=== PATIENT | male | born 1985 | race Caucasian/White ===

== ENCOUNTER 2024-02-02 09:21 | Emergency (ER) | payer OTHER, MEDICAID, SELFPAY ==
--- NOTE | 2024-02-02 09:34 | XR_ITS ---
Examination: AP right shoulder 2 views Technique: AP internal rotation, Y view right shoulder 2 views Exam date and time: February 02, 2024 0942 hrs. Indications: Shoulder pain and deformity today Findings: Anterior subcoracoid shoulder dislocation No fracture Impression: Anterior subcoracoid shoulder dislocation
[2024-02-02 09:36] VITALS: BP 136/106; PULSE 104; RESP 16; TEMP 36.5; O2SAT 97
--- NOTE | 2024-02-02 09:36 | EDNOTE_ITS ---
Upper Extremity Injury RME/HPI General Chief Complaint: Extremity Injury, Upper Stated Complaint: DISLOCATED SHOULDER Time Seen by Provider: 02/02/24 09:26 Arrival date/time: 02/02/24 09:21 Limitations: no limitations RME / HPI RME / HPI narrative: Patient with history of diabetes and right shoulder dislocation once in the past rolled in the bed and his shoulder dislocated. On exam he has anterior fullness of the right shoulder with normal neurovascular status of the rest of the right upper extremity Related Data Home Medications ?Medication ?Instructions ?Recorded ?Confirmed insulin degludec 100 unit/mL (3 90 unit subcut QAM 10/16/18 06/21/21 mL) subcutaneous pen (Tresiba FlexTouch U-100 insulin) sitagliptin phosphate 50 1 tab PO BIDWM 09/28/20 06/21/21 mg-metformin 1,000 mg tablet (Janumet) aspirin 81 mg chewable tablet 81 mg PO QDAY 06/21/21 06/21/21 flash glucose scanning reader 06/21/21 06/21/21 ([employer] Raghavendra 14 Day [place]) insulin lispro 100 unit/mL 20 unit subcut TID 06/21/21 06/21/21 subcutaneous pen (Admelog SoloStar U-100 Insulin lispro) Previous Rx's ?Medication ?Instructions ?Recorded ondansetron HCl 4 mg tablet 4 mg PO TID PRN nausea and 05/10/21 vomiting #20 tabs ibuprofen 800 mg tablet (IBU) 800 mg PO Q8H #20 tabs 09/27/23 Allergies Allergy/AdvReac Type Severity Reaction Status Date / Time No Known Allergies Allergy Verified 09/27/23 10:41 Review of Systems Review of Systems Systems Reviewed: All systems reviewed, normal except as documented ED Exam General Limitations: Present no limitations General appearance: Present alert Head Head exam: Present atraumatic Neck Neck exam: Present normal inspection Respiratory Respiratory exam: Present normal lung sounds bilaterally Cardiovascular Cardiovascular exam: Present regular rate and normal rhythm Abdominal Exam Abdominal exam: Present soft and normal bowel sounds Extremities Exam Extremities exam: Present other (See HPI) Back Exam Back exam: Present normal inspection Course Course Course Narrative: 1015 Time out was given per institution policy. The right shoulder was initialed by myself. While completely monitored, using 20 mg of etomidate the patient was induced and using traction/countertraction technique the right shoulder was reduced easily by myself. The patient was placed in an arm sling with good neurovascular status. Postreduction x-ray was ordered. Quality Measures none Orders Category Date Time Status XR shoulder RT min 2V Stat Exams 02/02/24 09:34 Completed XR shoulder RT min 2V Stat Exams 02/02/24 10:14 Taken Etomidate Inj [Amidate Inj] Med 02/02/24 09:34 Discontinued 20 mg IVP X1 ONE Vital Signs Vital signs: Vital Signs Temperature 97.7 F 02/02/24 09:36 Pulse Rate 104 H 02/02/24 09:36 Respiratory Rate 16 02/02/24 09:36 Blood Pressure 136/106 H 02/02/24 09:36 Pulse Oximetry (%) 97 02/02/24 09:36 Oxygen Delivery Method Room Air 02/02/24 09:36 Extremity Injury MDM Narrative MDM Narrative:: 1122 Patient is fully awake and alert and has recovered from the effects of etomidate and is ready to be discharged to law enforcement Patient data External records reviewed:: EMS form Clinical information provided by:: patient, EMS and law enforcement Social determinants that could affect healthcare access:: none Patient has the following chronic illnesses:: History of dislocated right shoulder How is presenting disease/condition affected by chronic disease/condition?: caused by Evaluation data The following diagnostics were reviewed and interpreted by me:: radiology exam(s) Lab and/or radiology exams considered but not ordered:: Comfort successful reduction of the right shoulder Interpretation Summary: As above Medications / Prescriptions Medications or Prescriptions considered but not ordered:: Not applicable Medication administrations:: Medication Administration History Discontinued Medications Etomidate (Etomidate Inj 2 Mg/Ml Vial 10 Ml) 20 mg IVP X1 ONE Stop: 02/02/24 09:35 Last Admin: 02/02/24 10:07 Dose: 20 mg Documented By: for induction Consultations Consultation(s) initiated? (list below): No Diagnosis Upper Extremity Injury Differential Diagnosis: dislocation of shoulder Most likely diagnosis given after review of the tests above:: Anterior dislocation of the right shoulder Admission Indicated Admission indicated?: not indicated Admission Request Was there a request for admission?: No Disposition Plan Disposition Plan: Discharge Discharge Attestation Discharge Attestation: The patient and all family members were given an opportunity to ask questions and understood the discharge instructions. Discharge instructions specifically effects, indications for sooner follow up or return to the emergency department, and the expected course of current diagnosis. Patient condition: Stable Discharge Plan Plan Patient Disposition: Fpc/Court/Law Patient condition on transfer: Stable Prescriptions/Referrals Prescriptions/Med Rec: No Action Tresiba FlexTouch U-100 100 unit/mL (3 mL) Insulin Pen 90 unit subcut QAM Rx Instructions: AFTER BREAKFAST Janumet 50-1,000 mg tablet 1 tab PO BIDWM Patient Comments: TAKE 1 TABLET BY MOUTH TWICE A DAY WITH MEALS ondansetron HCl 4 mg tablet 4 mg PO TID PRN (Reason: nausea and vomiting) Qty: 20 0RF aspirin 81 mg tablet,chewable 81 mg PO QDAY Patient Comments: CHEW 1 TABLET BY MOUTH EVERY DAY insulin lispro [Admelog SoloStar U-100 Insulin] 100 unit/mL insulin pen 20 unit SUBCUT TID Patient Comments: INJECT 20 UNITS SUBCUTANEOUSLY 3 TIMES A DAY 15MIN BEFORE EACH [place] [place] Flores Mabry [address] [facility] [place] [facility] [place] Patient Comments: CHECK BLOOD SUGAR 4 TIMES A DAY Rx Instructions: CHECK BLOOD SUGAR FOUR TIMES A DAY ibuprofen [IBU] 800 mg tablet 800 mg PO Q8H Qty: 20 0RF Referrals: No Primary/Family,Physician [Primary Care Provider] - In 1 week Problem List Clinical Impression: Dislocation of shoulder region Patient/Caregiver Discharge Instructions Discharge Activity: activity as tolerated Education Materials: ED Joint Dislocation Print Language: Lao
[2024-02-02 09:40] VITALS: BMI 22.9
[2024-02-02] MEDS: ETOMIDATE INJ 2 MG/ML VIAL 10 ML 20 MG IVP (10:07)
[2024-02-02 10:10] VITALS: BP 124/101; PULSE 108; RESP 16; O2SAT 100
--- NOTE | 2024-02-02 10:14 | XR_ITS ---
Examination: Shoulder,right, 3 views Technique: Shoulder AP internal rotation, AP external rotation, Y view shoulder, 3 views Exam date and time :February 02, 2024 1019 hrs. Indications: Post reduction shoulder dislocation Findings: Successful reduction shoulder dislocation Large vessel sex deformity humeral head No fracture noted Impression: Successful reduction shoulder dislocation
--- NOTE | 2024-02-02 10:27 | PC.NURSE ---
PATIENT AWAKE AND TALKING AT THIS TIME, DENIES COMPLAINT OF PAIN. [facility] REMAINS AT BEDSIDE
[2024-02-02 10:30] VITALS: BP 129/98; PULSE 110; RESP 16; O2SAT 100
[2024-02-02 10:43] VITALS: PULSE 101; RESP 222; O2SAT 99
[2024-02-02 11:57] VITALS: BP 126/86; PULSE 103; RESP 16; O2SAT 98
== END 2024-02-02 12:10 ==
PROVIDERS: Emergency Provider Emergency Medicine
DX: S43.004A Unspecified dislocation of right shoulder joint, initial encounter (principal); X58.XXXA Exposure to other specified factors, initial encounter
CPT/HCPCS: 23650; 73030; 99285; J3490

== ENCOUNTER 2024-10-22 15:17 | Emergency (ER) | payer MEDICAID, SELFPAY ==
[2024-10-22 15:28] VITALS: BP 120/82; PULSE 115; RESP 18; TEMP 36.9; O2SAT 97; BMI 22.2
--- NOTE | 2024-10-22 15:29 | XR_ITS ---
Examination: PA lateral chest 2 views TECHNIQUE: Upright PA lateral chest 2 views Date and time: October 22, 2024 1440 hours INDICATIONS: Chest pain weakness this week. FINDINGS: Normal heart size. Lungs are clear. The osseous structures are intact. IMPRESSION: No active disease.
--- NOTE | 2024-10-22 15:29 | EKG_ITS ---
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
--- NOTE | 2024-10-22 15:30 | PD.EDRME ---
Rapid Medical Screening Exam RME Arrival date/time: 10/22/24 15:17 39-year-old male presents to the emergency department as send has been out of his insulin for approximately 1 week feels weak and fatigued Chief Complaint: Weakness
[2024-10-22 15:51] LABS: Base Excess, Venous -3 (-3-3); O2 Saturation, Venous 70 % (96-97); PCO2, Venous 38 mmHg (36-56); PO2, Venous 33 mmHg (15-58); pH, Venous 7.37 (7.33-7.66)
[2024-10-22 15:54] LABS: Basophils # (Auto) 0.1 Thou/mm3 (0.0-0.2); Basophils % (Auto) 1 % (0-2.5); Eosinophils # (Auto) 0.2 Thou/mm3 (0.0-0.5); Eosinophils % (Auto) 2 % (0-10); Hematocrit 46.5 % (41.0-53.0); Hemoglobin 16.4 g/dL (13.5-16.0); Immature Granulocytes Auto 0.02 Thou/mm3 (0.00-0.00); Lymphocytes # (Auto) 2.9 Thou/mm3 (1.0-4.8); Lymphocytes % (Auto) 30 % (10-50); Mean Corpuscular HGB Conc 35.3 g/dl (31.0-37.0); Mean Corpuscular Hemoglobin 28.2 pg (25.0-35.0); Mean Corpuscular Volume 80 fL (80-100); Monocytes # (Auto) 0.8 Thou/mm3 (0.0-0.8); Monocytes % (Auto) 8 % (0-12); Neutrophils # (Auto) 5.8 Thou/mm3 (1.8-7.7); Neutrophils % (Auto) 59 % (37-80); Nucleated Red Blood Cell # 0.00 Thou/mm3 (0.00-0.00); Nucleated Red Blood Cell % 0 /100 WBC (0); Platelet Count 321 Thou/mm3 (140-440); RDW Standard Deviation 35.5 fL (35.1-43.9); Red Blood Count 5.82 Miln/mm3 (4.50-5.90); White Blood Count 9.7 Thou/mm3 (3.8-10.6)
[2024-10-22 16:02] LABS: Beta Hydroxybutyrate 4.3 mmol/L (<0.6)
[2024-10-22 16:09] LABS: INR 0.9 (0.9-1.3); Partial Thromboplastin Time 24.7 Seconds (22.0-36.0); Prothrombin Time 10.3 Seconds (9.0-12.2)
[2024-10-22 16:11] LABS: B-Type Natriuretic Peptide < 20 pg/mL (0-100)
[2024-10-22 16:13] LABS: Glucose Estimated Average 255 mg/dL (80-131); Hemoglobin A1C 10.5 % Hgb (4.8-6.0)
[2024-10-22 16:14] LABS: Alanine Aminotransferase 21 U/L (10-49); Albumin, Serum 5.0 gm/dL (3.5-5.0); Albumin/Globulin Ratio 1.9 (1.2-2.2); Alkaline Phosphatase 106 U/L (46-116); Anion Gap 16 (7-16); Aspartate Amino Transferase 12 U/L (0-34); BUN/Creatinine Ratio 8 Ratio (12-20); Bilirubin,Total 0.7 mg/dL (0.3-1.2); Blood Urea Nitrogen 11 mg/dL (9-23); Calcium 10.7 mg/dL (8.3-10.6); Calcium (Corrected) 10.7 mg/dL (8.5-10.1); Carbon Dioxide 22.3 mMol/L (20.0-31.0); Chloride 97 mMol/L (98-107); Creatinine (Component) 1.3 mg/dL (0.6-1.3); Estimated Creatinine Clearance 76.6 mL/min (>60); Globulin 2.6 gm/dL (2.3-3.5); Glucose 268 mg/dL (74-106); Magnesium 2.0 mg/dL (1.6-2.6); Osmolality,Calculated 278 (275-295); Potassium 4.3 mMol/L (3.4-5.1); Sodium 135 mMol/L (136-145); Total Protein 7.6 gm/dL (5.7-8.2); Troponin I < 0.002 ng/mL (0.0-0.045); eGFR > 60 See Note
--- NOTE | 2024-10-22 17:06 | PD.EDWEAK ---
ED Weakness RME/HPI General Chief complaint: Weakness Stated complaint: hasn't had insulin X 1 week, weak Time Seen by Provider: 10/22/24 16:15 Arrival date/time: 10/22/24 15:17 RME / HPI RME / HPI Narrative: 39-year-old male patient with significant history of diabetes mellitus, came in for evaluation regarding generalized body weakness and fatigue. Patient denies any vomiting denies any abdominal pain denies any cough denies any fever denies any other complaints. Denies any diarrhea also. Patient ran out over his insulin for 1 week due to pharmacy issues. Has been taking his Janumet. Related Data Home Medications ?Medication ?Instructions ?Recorded ?Confirmed insulin degludec 100 unit/mL (3 90 unit subcut QAM 10/16/18 06/21/21 mL) subcutaneous pen (Tresiba FlexTouch U-100 insulin) sitagliptin phosphate 50 1 tab PO BIDWM 09/28/20 06/21/21 mg-metformin 1,000 mg tablet (Janumet) aspirin 81 mg chewable tablet 81 mg PO QDAY 06/21/21 06/21/21 flash glucose scanning reader 06/21/21 06/21/21 ([employer] Raghavendra [address] [place]) insulin lispro 100 unit/mL 20 unit subcut TID 06/21/21 06/21/21 subcutaneous pen (Admelog SoloStar U-100 Insulin lispro) Previous Rx's ?Medication ?Instructions ?Recorded ondansetron HCl 4 mg tablet 4 mg PO TID PRN nausea and 05/10/21 vomiting #20 tabs ibuprofen 800 mg tablet (IBU) 800 mg PO Q8H #20 tabs 09/27/23 Allergies Allergy/AdvReac Type Severity Reaction Status Date / Time No Known Allergies Allergy Verified 10/22/24 15:20 Review of Systems Review of Systems Narrative Review of Systems: Review of system reviewed and within normal limits except mentioned in HPI ED Exam Narrative Physical exam: VITAL SIGNS: Reviewed. GENERAL APPEARANCE: Alert and interactive, follows commands, no acute distress, HEAD AND FACE: Non-traumatic. ENT: PERRL, pink conjunctivitis, eyelid no trauma, Mucous membrane dry NECK: Supple, nontender, no nuchal rigidity. CHEST: No tenderness, no crepitus, no paradoxical movement, no retractions. LUNGS: Clear, well ventilated, symmetric, no rales, no wheezing, no ronchi, no stridor, good breath sounds bilaterally. HEART: Regular rate, regular rhythm, no murmur, no gallops. ABDOMEN: Soft, positive bowel sounds, nondistended, no guarding, nontender, no rebound, no masses, RECTAL: Deferred. GENITAL: Deferred. NEUROLOGICAL: Gross motor function intact sensory function intact, Appropriate for age. MUSCULOSKELETAL: low back nontender, full range of motion. EXTREMITIES: Nontender, full range of motion. SKIN: Color pink, dry, no rash, no lacerations, no abrasions, no contusions. LYMPHATICS: Deferred. Course Quality Measures none Orders Category Date Time Status Bedside Blood Glucose NOW Care 10/22/24 15:23 Active EKG (ED ONLY) *Do not use* NOW Care 10/22/24 15:29 Completed EKG (ED Only) Stat Exams 10/22/24 15:29 Draft XR chest 2V Stat Exams 10/22/24 15:29 Completed A1C [Glycohemoglobin w (eAG)] Stat Lab 10/22/24 15:38 Completed ABG [Arterial Blood Gas] Stat Lab 10/22/24 18:00 Completed B-Type Natriuretic Peptide Stat Lab 10/22/24 15:38 Completed Beta Hydroxybutyrate Stat Lab 10/22/24 15:38 Completed CBC Stat Lab 10/22/24 15:38 Completed Comprehensive Metabolic Panel Stat Lab 10/22/24 15:38 Completed Drug Screen,Urine Stat Lab 10/22/24 23:59 Ordered Magnesium Stat Lab 10/22/24 15:38 Completed Partial Thromboplastin Time Stat Lab 10/22/24 15:38 Completed Prothrombin Time with INR Stat Lab 10/22/24 15:38 Completed Troponin I Stat Lab 10/22/24 15:38 Completed Urinalysis Stat Lab 10/22/24 23:59 Ordered VBG [Venous Blood Gas] Stat Lab 10/22/24 15:38 Completed Famotidine Inj [Pepcid Inj] Med 10/22/24 20:21 Discontinued 20 mg IVP X1 ONE Ondansetron Inj [Zofran Inj] Med 10/22/24 20:21 Discontinued 4 mg IVP X1 ONE Ringers Lactated 1000 ml [Lactated Ringers] 1,000 ml Med 10/22/24 17:05 Discontinued IV 999 mls/hr Ringers Lactated 1000 ml [Lactated Ringers] 1,000 ml Med 10/22/24 20:26 Active IV 999 mls/hr Sodium Chloride 0.9% 1000 ml [Ns] 1,000 ml Med 10/22/24 16:37 Discontinued IV 999 mls/hr Vital Signs Vital signs: Vital Signs Temperature 98.5 F 10/22/24 15:28 Pulse Rate 115 H 10/22/24 15:28 Respiratory Rate 18 10/22/24 15:28 Blood Pressure 120/82 10/22/24 15:28 Pulse Oximetry (%) 97 10/22/24 15:28 Oxygen Delivery Method Room Air 10/22/24 15:28 Weakness MDM Narrative MDM Narrative:: 39-year-old male patient with significant history of diabetes mellitus, came in for evaluation regarding generalized body weakness and fatigue. Patient denies any vomiting denies any abdominal pain denies any cough denies any fever denies any other complaints. Denies any diarrhea also. Patient ran out over his insulin for 1 week due to pharmacy issues. Has been taking his Janumet. EKG sinus rhythm, ventricular to 99 bpm, no ST segment elevation depression noted. Patient's CBC showed no leukocytosis. CMP came back with sodium 135, chloride 97, sugar 268 with no sign of diabetic ketoacidosis. Patient's hemoglobin A1c was noted to be 10.5 beta hydroxy butyrate 4.3. ABG no acidosis or alkalosis noted. pH is normal. Patient received total of 3 L IV fluids, Zofran, with significant improvement of symptoms. Patient is not vomiting in the ED. Patient chest x-ray came back unremarkable. Patient appears nontoxic and hemodynamically stable .Decision to discharge the patient. The patient/family was given an opportunity to ask questions and understood their discharge instructions. Discharge instructions specifically included follow up provider and time frame, current and/or new medications and possible side effects, indications for sooner follow up or return to the emergency department, and the expected course of current diagnosis. Patient reports feeling better as well and giving evidence of significant clinical improvement, I believe patient is now a candidate for discharge. Patient data External records reviewed:: None Clinical information provided by:: patient and family Social determinants that could affect healthcare access:: none Patient has the following chronic illnesses:: Hypertension poor medication compliance How is presenting disease/condition affected by chronic disease/condition?: exacerbated by Evaluation data The following diagnostics were reviewed and interpreted by me:: lab results, radiology exam(s) and EKG tracing(s) Lab and/or radiology exams considered but not ordered:: None Interpretation Summary: See results MDM Medications / Prescriptions Medications or Prescriptions considered but not ordered:: None Medication administrations:: Medication Administration History Lactated Ringer's (Lactated Ringers) 1,000 mls @ 999 mls/hr IV .Q1H1M ONE Stop: 10/22/24 21:26 Last Admin: 10/22/24 20:49 Dose: 999 mls/hr Documented By: BEATRICE Discontinued Medications Famotidine (Famotidine Inj 10 Mg/Ml Vial 2 Ml) 20 mg IVP X1 ONE Stop: 10/22/24 20:22 Last Admin: 10/22/24 20:49 Dose: 20 mg Documented By: BEATRICE Sodium Chloride (Ns) 1,000 mls @ 999 mls/hr IV .Q1H1M ONE Stop: 10/22/24 17:37 Last Infusion: 10/22/24 18:16 Dose: Infused Documented By: Admin: 10/22/24 17:21 Dose: 999 mls/hr Documented By: RADHA Lactated Ringer's (Lactated Ringers) 1,000 mls @ 999 mls/hr IV .Q1H1M ONE Stop: 10/22/24 18:05 Last Infusion: 10/22/24 20:21 Dose: Infused Documented By: Admin: 10/22/24 18:16 Dose: 999 mls/hr Documented By: CARLIN Ondansetron HCl (Ondansetron Inj 2 Mg/Ml Inj 2 Ml) 4 mg IVP X1 ONE; Protocol Stop: 10/22/24 20:22 Last Admin: 10/22/24 20:48 Dose: 4 mg Documented By: BEATRICE Pepcid, IV fluids, Zofran Consultations Consultation(s) initiated? (list below): No Diagnosis Weakness Differential Diagnosis: dehydration and other (Hyperglycemia, poor medication compliance) Most likely diagnosis given after review of the tests above:: Hyperglycemia, poor medication compliance Admission Indicated Admission indicated?: not indicated Admission Request Was there a request for admission?: No Disposition Plan Disposition Plan: Discharge Discharge Attestation Discharge Attestation: The patient and all family members were given an opportunity to ask questions and understood the discharge instructions. Discharge instructions specifically effects, indications for sooner follow up or return to the emergency department, and the expected course of current diagnosis. Patient condition: Stable Discharge Plan Plan Patient Disposition: HOME (Self Care) Discharge Disposition comment: Stable Prescriptions/Referrals Prescriptions/Med Rec: Continued Tresiba FlexTouch U-100 100 unit/mL (3 mL) Insulin Pen 90 unit subcut QAM Rx Instructions: AFTER BREAKFAST ondansetron HCl 4 mg tablet 4 mg PO TID PRN (Reason: nausea and vomiting) Qty: 20 0RF insulin lispro [Admelog SoloStar U-100 Insulin] 100 unit/mL insulin pen 20 unit SUBCUT TID Patient Comments: INJECT 20 UNITS SUBCUTANEOUSLY 3 TIMES A DAY 15MIN BEFORE EACH MEAL DIRECTED BY DR Bela Gonsalez Janumesadi 50-1,000 mg tablet 1 tab PO BIDWM Patient Comments: TAKE 1 TABLET BY MOUTH TWICE A DAY WITH MEALS aspirin 81 mg tablet,chewable 81 mg PO QDAY Patient Comments: CHEW 1 TABLET BY MOUTH EVERY DAY (DME) [employer] Raghavendra [address] [place] [facility] [place] Patient Comments: CHECK BLOOD SUGAR 4 TIMES A DAY Rx Instructions: CHECK BLOOD SUGAR FOUR TIMES A DAY ibuprofen [IBU] 800 mg tablet 800 mg PO Q8H Qty: 20 0RF Referrals: No Primary/Family,Physician [Primary Care Provider] - In 1 week Problem List Clinical Impression: Acute hyperglycemia, Acute dehydration Patient/Caregiver Discharge Instructions Discharge Activity: activity as tolerated Education Materials: High Blood Sugar (Hyperglycemia) Additional Instructions: Thank you for the opportunity for serving you today. You are stable for discharged . You are advised to: Follow-up with your PCP in 1 to 2 days Return to ED for worsening of symptoms Increase oral fluids Take medication as prescribed Print Language: Mohawk Stand Alone Forms: Jeanne Award Info., Patient Portal Info Letter ROSA/COLLEEN Supervising Physician ROSA/COLLEEN Supervising Physician: MD Robert
[2024-10-22] MEDS: SODIUM CHLORIDE 0.9% 1000 ML 1,000 ML 999 ML IV (17:21)
[2024-10-22 18:05] VITALS: BP 132/85; PULSE 97; RESP 18; TEMP 36.9; O2SAT 100
[2024-10-22] MEDS: RINGERS LACTATED 1000 ML 1,000 ML 999 ML IV ×2 (18:16→20:49)
[2024-10-22 18:37] LABS: PCO2 36 mmHg (32.0-48.0); PO2 126 mmHg (83-108); pH, Arterial 7.36 (7.35-7.45)
[2024-10-22 18:38] LABS: Base Excess -5 (-3-3); HCO3 20 mEq/L (20-26); Inspired Oxygen, FIO2 21 %; O2 Saturation 99 % (91-98); Puncture Site Right Radial
[2024-10-22 18:39] LABS: Allen Test Performed/OK
[2024-10-22] MEDS: ONDANSETRON INJ 2 MG/ML INJ 2 ML 4 MG IVP (20:48)
[2024-10-22] MEDS: FAMOTIDINE INJ 10 MG/ML VIAL 2 ML 20 MG IVP (20:49)
[2024-10-22 21:49] VITALS: BP 151/86; PULSE 116; RESP 19; TEMP 37; O2SAT 100
== END 2024-10-22 22:00 | disposition home or self-care (01) ==
PROVIDERS: Nurse Practitioner Family; Nurse Practitioner Primary Care; Emergency Provider Family Medicine
DX: E11.65 Type 2 diabetes mellitus with hyperglycemia (principal); E86.0 Dehydration
CPT/HCPCS: 36415; 36600; 71046; 80053; 80307; 81001; 82010; 82803; 83036; 83735; 83880; 84484; 85025; 85610; 85730; 93005; 96361; 96374; 96375; 99283; J2405; J3490; J7030; J7120

== ENCOUNTER 2024-10-23 10:10 | Inpatient (IN) | payer MEDICAID, SELFPAY ==
[2024-10-23] VITALS (12 sets, daily range): BP systolic 113–171; BP diastolic 66–94; PULSE 72–112; RESP 22–100; TEMP 36.3–36.9; O2SAT 98–100; BMI 25.5
--- NOTE | 2024-10-23 10:47 | EDNOTE_ITS ---
ED General RME/HPI General Chief complaint: General Adult/Misc Complain Stated complaint: DIABETIC COMPLICATIONS Time Seen by Provider: 10/23/24 10:20 Arrival date/time: 10/23/24 10:10 RME / HPI RME / HPI narrative: DR. DAVIDSON MAIN ED EVALUATION: 39-year-old male with a history of diabetes presents to the Emergency Department stating, I am in DKA . He reports noncompliance with insulin for the past week. Patient was seen here for the same symptoms and discharged this morning. Blood sugar measured at 582 mg/dL on arrival. Denies fever, chills, vomiting, or diarrhea. Related Data Home Medications ?Medication ?Instructions ?Recorded ?Confirmed insulin degludec 100 unit/mL (3 90 unit subcut QAM 10/2706/21/21 mL) subcutaneous pen (Tresiba FlexTouch U-100 insulin) sitagliptin phosphate 50 1 tab PO BIDWM 09/28/2006/09 mg-metformin 1,000 mg tablet (Janumet) aspirin 81 mg chewable tablet 81 mg PO QDAY 06/21/21 0 06/21/21 flash glucose scanning reader 06/21/21 06/21/21 (FreeStyle Raghavendra [address] [place]) insulin lispro 100 unit/mL 20 unit subcut TID 06/21/21 06/21/21 subcutaneous pen (Admelog SoloStar U-100 Insulin lispro) Previous Rx's ?Medication ?Instructions ?Recorded ondansetron HCl 4 mg tablet 4 mg PO TID PRN nausea and 05/10/21 vomiting #20 tabs ibuprofen 800 mg tablet (IBU) 800 mg PO Q8H #20 tabs 0 09/27/23 Allergies Allergy/AdvReac Type Severity Reaction Status Date / Time No Known Allergies Allergy Verified 10/22/24 15:20 Review of Systems Review of Systems Systems Reviewed: All systems reviewed, normal except as documented Past Medical History Past Medical History NEUROLOGIC: Negative Neurological Disorders CARDIAC: Negative Cardiac Disorders GASTROINTESTINAL: Negative Gastrointestinal Disorders GENITOURINARY: Negative Genitourinary Disorders or Renal Disease ENDOCRINE: Positive Diabetes Mellitus Type 1 HEMATOLOGIC: Negative Blood Disorders Surgical History SURGICAL: Positive Nose Surgery Social History SMOKING STATUS: Light (< 1 pack/day) SECOND HAND EXPOSURE: No SUBSTANCE USE: methamphetamine ED Exam Narrative Physical exam: Constitutional: Awake, somewhat sleepy, very anxious, in acute distress. HEENT: Normocephalic, atraumatic, extraocular movements are intact. Neck: Supple CV: tachycardic, regular rhythm, no murmurs heard. Lungs: tachypneic, hyperventilating, in distress. Abd: Soft, nontender, nondistended, no HSM noted to palpation Extremities: No deformities, no edema noted Neuro: Somewhat sleepy, oriented x 3. No acute neuro deficit noted. Skin: Warm, some skin mottling around bilateral knees Course Course Course Narrative: Patient in significant distress on arrival to the emergency department in apparent DKA with heart rate in the 120s, blood pressure stable. Hyperventilating with respiratory rate in the 40s to 50s. Significant acidosis. IV fluids, IV insulin, IV sodium bicarbonate were given. Case was discussed with cone worker Dr. Davidson who accepted patient for admission. Quality Measures none Orders Category Date Time Status Admit to Inpatient Status Routine Admission 10/23/24 17:26 Active Patient Condition Routine Admission 10/23/24 15:27 Ordered Bedside Blood Glucose NOW Care 10/23/24 10:47 Active Bedside Blood Glucose Q1H Care 10/23/24 10:47 Active Bedside Blood Glucose Q1H Care 10/23/24 15:30 Active COVID-19 Screening Questionnaire NOW Care 10/23/24 12:32 Active Life Skills Coordinator NOW Care 10/23/24 10:47 Active Life Skills Coordinator Q4H Care 10/23/24 15:30 Active Continuous Pulse Oximetry NOW Care 10/23/24 10:47 Completed DKA Protocol QSHIFT Care 10/23/24 11:53 Active DKA Protocol QSHIFT Care 10/23/24 15:30 Active Decision to Admit X1 Care 10/23/24 12:32 Completed EKG (ED ONLY) *Do not use* NOW Care 10/23/24 10:47 Completed Insert IV NOW Care 10/23/24 10:47 Active Intake and Output Q1H Care 10/23/24 15:30 Ordered Intake and Output Q1H Care 10/23/24 16:30 Ordered Intake and Output Q1H Care 10/23/24 17:30 Ordered Intake and Output Q1H Care 10/23/24 18:30 Ordered Intake and Output Q1H Care 10/23/24 19:30 Ordered Intake and Output Q1H Care 10/23/24 20:30 Ordered Intake and Output Q1H Care 10/23/24 21:30 Ordered Intake and Output Q1H Care 10/23/24 22:30 Ordered Intake and Output Q1H Care 10/23/24 23:30 Ordered NPO NOW Care 10/23/24 15:28 Active Notify provider NEEDED Care 10/23/24 15:30 Active Referral Registered Dietitian Routine Cons 10/23/24 15:30 Active Diet NPO (NOW) Diet 10/23/24 15:28 Active EKG (ED Only) Stat Exams 10/23/24 10:47 Ordered XR chest 1V portable Stat Exams 10/23/24 10:49 Completed XR chest 1V portable Stat Exams 10/23/24 15:30 Completed ABG [Arterial Blood Gas] Stat Lab 10/23/24 16:12 Completed Arterial Blood Gas Stat Lab 10/23/24 11:05 Completed Beta Hydroxybutyrate Stat Lab 10/23/24 10:40 Completed Beta Hydroxybutyrate Stat Lab 10/23/24 16:23 Completed Blood Culture (Lab) Routine Lab 10/23/24 16:23 Received CBC AM DRAW Lab 10/24/24 05:00 Ordered CBC AM DRAW Lab 10/25/24 05:00 Ordered CBC AM DRAW Lab 10/26/24 05:00 Ordered CBC Stat Lab 10/23/24 11:57 Completed CMP [Comprehensive Metabolic Panel] AM DRAW Lab 10/24/24 05:00 Ordered CMP [Comprehensive Metabolic Panel] AM DRAW Lab 10/25/24 05:00 Ordered CMP [Comprehensive Metabolic Panel] AM DRAW Lab 10/26/24 05:00 Ordered Comprehensive Metabolic Panel Stat Lab 10/23/24 10:40 Completed Drug Screen,Urine Stat Lab 10/23/24 10:30 Completed Electrolytes, Urine Random Stat Lab 10/23/24 10:30 Completed Glycohemoglobin w (eAG) Stat Lab 10/23/24 16:23 Completed Lactate (Lactic Acid) Q4H Lab 10/23/24 20:00 Ordered Lactate (Lactic Acid) Q4H Lab 10/23/24 23:30 Ordered Lactate (Lactic Acid) Q4H Lab 10/24/24 03:30 Ordered Lactate (Lactic Acid) Q4H Lab 10/24/24 07:30 Ordered Lactate (Lactic Acid) Q4H Lab 10/24/24 11:30 Ordered Lactate (Lactic Acid) Q4H Lab 10/24/24 15:30 Ordered Lactate (Lactic Acid) Q4H Lab 10/24/24 19:30 Ordered Lactate (Lactic Acid) Q4H Lab 10/24/24 23:30 Ordered Lactate (Lactic Acid) Q4H Lab 10/25/24 03:30 Ordered Lactate (Lactic Acid) Q4H Lab 10/25/24 07:30 Ordered Lactate (Lactic Acid) Q4H Lab 10/25/24 11:30 Ordered Lactate (Lactic Acid) Q4H Lab 10/25/24 15:30 Ordered Lactate (Lactic Acid) Stat Lab 10/23/24 13:00 Completed Lactic Acid, 3 HR Stat Lab 10/23/24 16:23 Completed Lipase Stat Lab 10/23/24 10:40 Completed Magnesium Q4H Lab 10/23/24 23:30 Ordered Magnesium Q4H Lab 10/24/24 03:30 Ordered Magnesium Q4H Lab 10/24/24 07:30 Ordered Magnesium Q4H Lab 10/24/24 11:30 Ordered Magnesium Q4H Lab 10/24/24 15:30 Ordered Magnesium Q4H Lab 10/24/24 19:30 Ordered Magnesium Q4H Lab 10/24/24 23:30 Ordered Magnesium Q4H Lab 10/25/24 03:30 Ordered Magnesium Q4H Lab 10/25/24 07:30 Ordered Magnesium Q4H Lab 10/25/24 11:30 Ordered Magnesium Q4H Lab 10/25/24 15:30 Ordered Magnesium Routine Lab 10/23/24 20:05 Ordered Magnesium Stat Lab 10/23/24 10:40 Completed Magnesium Stat Lab 10/23/24 16:23 Completed Phosphorous Q4H Lab 10/23/24 23:30 Ordered Phosphorous Q4H Lab 10/24/24 03:30 Ordered Phosphorous Q4H Lab 10/24/24 07:30 Ordered Phosphorous Q4H Lab 10/24/24 11:30 Ordered Phosphorous Q4H Lab 10/24/24 15:30 Ordered Phosphorous Q4H Lab 10/24/24 19:30 Ordered Phosphorous Q4H Lab 10/24/24 23:30 Ordered Phosphorous Q4H Lab 10/25/24 03:30 Ordered Phosphorous Q4H Lab 10/25/24 07:30 Ordered Phosphorous Q4H Lab 10/25/24 11:30 Ordered Phosphorous Q4H Lab 10/25/24 15:30 Ordered Phosphorous Stat Lab 10/23/24 10:40 Completed Procalcitonin Stat Lab 10/23/24 11:57 Completed Renal Function Panel Q4H Lab 10/23/24 20:05 Ordered Renal Function Panel Stat Lab 10/23/24 16:23 Completed Urinalysis Stat Lab 10/23/24 10:30 Completed Acetaminophen Tab [Tylenol Tab] Med 10/23/24 15:26 Discontinued 650 mg PO Q4HR PRN Acetaminophen Tab [Tylenol Tab] Med 10/23/24 16:11 Active 650 mg PO Q6HR PRN Dextrose 5%-Lactated Ringers [D5-Lr] 1,000 ml Med 10/23/24 15:39 Active Pot Chl Additive [KCl Additive] 20 meq IV 250 mls/hr Dextrose 5%-Lactated Ringers [D5-Lr] 1,000 ml Med 10/23/24 15:26 Active Pot Chl Additive [KCl Additive] 40 meq IV 250 mls/hr Dextrose 5%-Lactated Ringers [D5-Lr] 1,000 ml Med 10/23/24 15:26 Active IV 250 mls/hr Dextrose 5%-Water [D5w] 500 ml Med 10/23/24 12:15 Discontinued Sodium Bicarb 8.4% 50ml Vial* 88.23 meq IV 100 mls/hr Dextrose 5%-Water [D5w] 500 ml Med 10/23/24 18:08 Discontinued Sodium Bicarb 8.4% 50ml Vial* 88.23 meq IV 100 mls/hr Dextrose 50% Syr [D50w Syringe Abboject] Med 10/23/24 15:26 Active 25 ml IV PRNMRX1 PRN Enoxaparin [Lovenox] Med 10/24/24 09:00 Active 40 mg SC QDAY Insulin Reg 100 Units/100 ml [Myxredlin] Med 10/23/24 11:54 Active 100 unit in 100 ml IV 0.1 unit/kg/hr Insulin Regular Med 10/23/24 11:52 Discontinued 10 unit IV X1 ONE KCL 20 mEq/L in D5-LR Med 10/23/24 15:26 Discontinued 20 meq in 1,000 ml IV 250 mls/hr Magnesium Sulfate 2 GM Ivpb [Magnesium Sulfate Ivpb] Med 10/23/24 15:26 Active 2 gm in 50 ml IV 25 mls/hr Ondansetron Inj [Zofran Inj] Med 10/23/24 16:06 Active 4 mg IVP Q6HR PRN Ondansetron Inj [Zofran Inj] Med 10/23/24 10:47 Discontinued 4 mg IVP X1 ONE POT PHOS 15 mMol in NS 250 ML [Pot Phos 15 mMol in NS Med 10/23/24 15:26 Active 250 ml] 15 mmol in 250 ml IV PRN POTASSIUM CHL 10 mEq IVPB [Kcl Ivpb] Med 10/23/24 15:26 Active 10 meq in 100 ml IV 100 mls/hr POTASSIUM CHL 10 mEq IVPB [Kcl Ivpb] Med 10/23/24 15: Active 10 meq in 100 ml IV PRN Pantoprazole Inj [Protonix Inj] Med 10/24/24 09:00 Active 40 mg IVP QDAY Pre-Mixed [Pre-mixed Bag] 1 bag Med 10/23/24 15:26 Discontinued Insulin Reg 100 Units/100 ml [Myxredlin] 100 unit IV 0.1 unit/kg/hr Ringers Lactated 1000 ml [Lactated Ringers] 1,000 ml Med 10/23/24 15:26 Active Pot Chl Additive [KCl Additive] 20 meq IV 250 mls/hr Ringers Lactated 1000 ml [Lactated Ringers] 1,000 ml Med 10/23/24 15:26 Active Pot Chl Additive [KCl Additive] 40 meq IV 250 mls/hr Ringers Lactated 1000 ml [Lactated Ringers] 1,000 ml Med 10/23/24 15:26 Active IV 250 mls/hr Ringers Lactated 1000 ml [Lactated Ringers] 1,000 ml Med 10/23/24 12:14 Discontinued IV 500 mls/hr Sodium Bicarb 8.4% SYR Med 10/23/24 12:30 Discontinued 50 ml IV .STK-MED ONE Sodium Bicarb 8.4% SYR Med 10/23/24 15:26 Active 50 ml IV Q4HR PRN Sodium Bicarb 8.4% SYR Med 10/23/24 11:55 Discontinued 50 ml IV X1 ONE Sodium Bicarb 8.4% SYR Med 10/23/24 12:35 Discontinued 50 ml IV X1 ONE Sodium Chloride 0.9% 1000 ml [Ns] 1,000 ml Med 10/23/24 10:47 Discontinued IV 1,000 mls/hr Sodium Chloride 0.9% 1000 ml [Ns] 1,000 ml Med 10/23/24 10:49 Discontinued IV 999 mls/hr Sodium Chloride 0.9% 250 ml [Ns] 250 ml Med 10/23/24 15:26 Active Sod Phos Additive [NaPhos Additive] 15 mmol IV 62.5 mls/hr Code Status Routine Oth 10/23/24 15:26 Ordered Oxygen Delivery PRN RT 10/23/24 15:27 Active Vital Signs Vital signs: Vital Signs Temperature 97.4 F 10/23/24 10:12 Pulse Rate 111 H 10/23/24 10:12 Blood Pressure 171/87 H 10/23/24 10:12 Pulse Oximetry (%) 99 10/23/24 10:12 Oxygen Delivery Method Room Air 10/23/24 10:12 Critical Care Time Critical Care Time Critical Care Time: Yes Total Critical Care Time (min.): 45 Attestation: The high probability of a clinically significant, sudden or life threatening deterioration of the [cardiovascular] system(s) required my full and direct attention, intervention and personal management. The aggregate critical care time was [45] minutes. This time is in addition to time spent performing reported procedures but includes the following: [X] Data Review and interpretation [X] Patient assessment and monitoring of vital signs [X] Documentation [X] Medication orders and management Discharge Plan Plan Patient Disposition: Admit Acute Care w/in Hospital Discharge Disposition comment: ICU Prescriptions/Referrals Prescriptions/Med Rec: No Action Tresiba FlexTouch U-100 100 unit/mL (3 mL) Insulin Pen 90 unit subcut QAM Rx Instructions: AFTER BREAKFAST Janumet 50-1,000 mg tablet 1 tab PO BIDWM Patient Comments: TAKE 1 TABLET BY MOUTH TWICE A DAY WITH MEALS ondansetron HCl 4 mg tablet 4 mg PO TID PRN (Reason: nausea and vomiting) Qty: 20 0RF aspirin 81 mg tablet,chewable 81 mg PO QDAY Patient Comments: CHEW 1 TABLET BY MOUTH EVERY DAY insulin lispro [Admelog SoloStar U-100 Insulin] 100 unit/mL insulin pen 20 unit SUBCUT TID Patient Comments: INJECT 20 UNITS SUBCUTANEOUSLY 3 TIMES A DAY 15MIN BEFORE EACH MEAL D [place] [place] Flores Mabry [address] [place] [facility] [place] Patient Comments: CHECK BLOOD SUGAR 4 TIMES A DAY Rx Instructions: CHECK BLOOD SUGAR FOUR TIMES A DAY ibuprofen [IBU] 800 mg tablet 800 mg PO Q8H Qty: 20 0RF Referrals: Daphne Yousif PA-C [Primary Care Provider] - In 1 week Problem List Clinical Impression: DKA (diabetic ketoacidosis) Patient/Caregiver Discharge Instructions Print Language: Armenian Stand Alone Forms: Jeanne Award Info., Patient Portal Info Letter MDM Narrative [facility] hospital course: I, Suzie Wasserman am scribing for and in the presence of Dr. Davidson. Clinical Information Provided by patient Medical Records Reviewed [facility] Meds/Rx Considered, not Ordered None Labs/Rad/Tests considered, not Ordered None Chronic Illness/Social Conditions Add or document further as needed: Diabetes, non compliance with insulin EKG EKG Interpretation narrative: My interpretation: EKG performed at 1055 hours, sinus tachycardia, rate 104, no STEMI Lab Interpretation Labs: see narrative above Imaging Radiology reports / interpretation(s): Procedure(s): XR chest 1V portable Accession Number(s): [id number] cc: Aamir Negro MD; Kimberlyn Davidson MD~ Examination: AP chest single view TECHNIQUE: Sitting portable AP chest single view Date and time: October 23, 2024 1108 hours Comparison October 22, 2024 INDICATIONS: Chest pain shortness of breath beginning 2 days ago. FINDINGS: Normal heart size. Lungs are clear. The osseous structures are intact. IMPRESSION: No active disease. Dictated By: Aamir Negro MD Medication Administration(s) Medication Administration History Acetaminophen (Acetaminophen 325 Mg Tablet) 650 mg PO Q6HR PRN PRN Reason: PAIN SCALE 1-3 (mild Stop: 11/22/24 15:25 Dextrose (Dextrose 50%-Water Inj 50 Ml Syringe) 25 ml IV PRNMRX1 PRN PRN Reason: Blood Sugar - Low Enoxaparin Sodium (Enoxaparin Sod Inj 40 Mg/0.4 Ml Syringe) 40 mg SC QDAY LATONYA Stop: 11/07/24 08:59 Insulin Human Regular (Myxredlin) 100 unit in 100 mls @ 8.549 mls/hr IV .[id number] PRN; Protocol PRN Reason: PER PROTOCOL Stop: 11/22/24 11:53 Last Titration: 10/23/24 17:59 Dose: 0.05 unit/kg/hr, 4.274 mls/hr Documented By: REESE Co-signed By: CARLIN Titration: 10/23/24 16:54 Dose: 0.05 unit/kg/hr, 4.274 mls/hr Documented By: REESE Co-signed By: CARLIN Titration: 10/23/24 16:14 Dose: 0.1 unit/kg/hr, 8.549 mls/hr Documented By: REESE Co-signed By: CARLIN Titration: 10/23/24 15:05 Dose: 0.1 unit/kg/hr, 8.549 mls/hr Documented By: REESE Co-signed By: CARLIN Titration: 10/23/24 14:05 Dose: 0.1 unit/kg/hr, 8.549 mls/hr Documented By: REESE Co-signed By: CARLIN Titration: 10/23/24 13:05 Dose: 0.1 unit/kg/hr, 8.549 mls/hr Documented By: REESE Co-signed By: CARLIN Admin: 10/23/24 12:17 Dose: 0.1 unit/kg/hr, 8.549 mls/hr Documented By: REESE Co-signed By: CARLIN Potassium Chloride (Kcl Ivpb) 10 meq in 100 mls @ 100 mls/hr IV .Q1H PRN PRN Reason: IF POTASSIUM LESS THAN 3.3 Stop: 11/22/24 15:25 Magnesium Sulfate (Magnesium Sulfate Ivpb) 2 gm in 50 mls @ 25 mls/hr IV .Q2H PRN PRN Reason: PER DKA PROTOCOL Stop: 11/22/24 15:25 Dextrose/Lactated Ringer's (D5-Lr) 1,000 mls @ 250 mls/hr IV .Q4H PRN PRN Reason: PER PROTOCOL Stop: 11/22/24 15:25 Last Admin: 10/23/24 18:22 Dose: 250 mls/hr Documented By: REESE Lactated Ringer's (Lactated Ringers) 1,000 mls @ 250 mls/hr IV .Q4H PRN PRN Reason: PER PROTOCOL Stop: 10/24/24 15:25 Potassium Chloride 20 meq/ (Lactated Ringer's) 1,010 mls @ 250 mls/hr IV .Q4H3M PRN PRN Reason: K LEVEL 3.3 TO 5.3mM/L Stop: 11/22/24 15:25 Potassium Chloride 40 meq/ (Lactated Ringer's) 1,020 mls @ 250 mls/hr IV .Q4H5M PRN PRN Reason: K LEVEL < 3.3 mM/L Stop: 11/22/24 15:25 Potassium Chloride 40 meq/ (Dextrose/Lactated Ringer's) 1,020 mls @ 250 mls/hr IV .Q4H5M PRN PRN Reason: K LEVEL < 3.3mM/L Stop: 11/22/24 15:25 Potassium Chloride (Kcl Ivpb) 10 meq in 100 mls @ 50 mls/hr IV PRN PRN PRN Reason: K LEVEL 3.3 to 5.3 & BG > 200 Stop: 11/22/24 15:25 Potassium Phosphate (Pot Phos 15 Mmol In Ns 250 Ml) 15 mmol in 250 mls @ 62.5 mls/hr IV PRN PRN PRN Reason: Phosphate <= 1mg/dL Stop: 11/22/24 15:25 Sodium Phosphate 15 mmol/ (Sodium Chloride) 255 mls @ 62.5 mls/hr IV .Q4H5M PRN PRN Reason: Phosphate <= 1mg/dL and K> than 5.3 Stop: 11/22/24 15:25 Potassium Chloride 20 meq/ (Dextrose/Lactated Ringer's) 1,010 mls @ 250 mls/hr IV .Q4H3M PRN PRN Reason: K LEVEL 3.3 TO 5.3 mM/L Stop: 11/22/24 15:38 Ondansetron HCl (Ondansetron Inj 2 Mg/Ml Inj 2 Ml) 4 mg IVP Q6HR PRN; Protocol PRN Reason: NAUSEA OR VOMITING Stop: 11/22/24 16:05 Pantoprazole Sodium (Pantoprazole Inj 40 Mg Vial) 40 mg IVP QDAY LATONYA Stop: 11/23/24 08:59 Sodium Bicarbonate (Sodium Bicarb Inj 8.4% Syr 50 Ml Syringe) 50 ml IV Q4HR PRN PRN Reason: For ph <= to 7.0 Stop: 11/22/24 15:25 Discontinued Medications Acetaminophen (Acetaminophen 325 Mg Tablet) 650 mg PO Q4HR PRN PRN Reason: PAIN SCALE 1-3 (mild Stop: 11/22/24 15:25 Sodium Chloride (Ns) 1,000 mls @ 1,000 mls/hr IV .Q1H ONE Stop: 10/23/24 11:46 Last Infusion: 10/23/24 15:45 Dose: Infused Documented By: Admin: 10/23/24 10:54 Dose: 1,000 mls/hr Documented By: REESE Sodium Chloride (Ns) 1,000 mls @ 999 mls/hr IV .Q1H1M ONE Stop: 10/23/24 11:49 Last Infusion: 10/23/24 15:45 Dose: Infused Documented By: Admin: 10/23/24 10:55 Dose: 999 mls/hr Documented By: REESE Sodium Bicarbonate 88.23 meq/ (Dextrose) 588.23 mls @ 100 mls/hr IV .Q5H53M LATONYA Stop: 11/22/24 18:07 Sodium Bicarbonate 88.23 meq/ (Dextrose) 588.23 mls @ 100 mls/hr IV .Q5H53M ONE Stop: 10/23/24 18:07 Last Infusion: 10/23/24 18:28 Dose: 0 mls/hr Documented By: Admin: 10/23/24 12:49 Dose: 100 mls/hr Documented By: REESE Lactated Ringer's (Lactated Ringers) 1,000 mls @ 500 mls/hr IV .Q2H ONE Stop: 10/23/24 14:13 Last Infusion: 10/23/24 15:45 Dose: Infused Documented By: Admin: 10/23/24 12:24 Dose: 500 mls/hr Documented By: REESE Insulin Human Regular 100 unit (/ IV Miscellaneous Supplies) 100 mls @ 8.549 mls/hr IV .[id number] PRN; Protocol PRN Reason: PER PROTOCOL Stop: 11/22/24 15:25 Potassium Cl/Dextrose/Lact Ringer's (Kcl 20 Meq/L In D5-Lr) 20 meq in 1,000 mls @ 250 mls/hr IV .Q4H PRN PRN Reason: K LEVEL 3.3 TO 5.3 mM/L Insulin Human Regular (Insulin Hum Regular 1 Unit/0.01 Ml (Per Unit)) 10 unit IV X1 ONE Stop: 10/23/24 11:53 Last Admin: 10/23/24 12:17 Dose: 10 unit Documented By: REESE Co-signed By: CARLIN Ondansetron HCl (Ondansetron Inj 2 Mg/Ml Inj 2 Ml) 4 mg IVP X1 ONE; Protocol Stop: 10/23/24 10:48 Last Admin: 10/23/24 10:54 Dose: 4 mg Documented By: REESE Sodium Bicarbonate (Sodium Bicarb Inj 8.4% Syr 50 Ml Syringe) 50 ml IV X1 ONE Stop: 10/23/24 11:56 Last Admin: 10/23/24 12:09 Dose: 50 ml Documented By: REESE Sodium Bicarbonate (Sodium Bicarb Inj 8.4% Syr 50 Ml Syringe) 50 ml IV X1 ONE Stop: 10/23/24 12:36 Last Admin: 10/23/24 12:40 Dose: 50 ml Documented By: REESE Sodium Bicarbonate (Sodium Bicarb Inj 8.4% Syr 50 Ml Syringe) Confirm Ad ministered Dose 50 ml IV .STK-MED ONE Stop: 10/23/24 12:31 Last Admin: 10/23/24 12:43 Dose: Not Given Documented By: REESE Non-Admin Reason: Duplicate Medication on eMAR Consultations/Discussions re: Management Consult #1: Date/time: 10/23/24 12:49 pm Physician, specialty, service, details: Discussed test HPI, PMHx, lab, radiology results and/or management with cone worker Dr. Davidson. Will admit for further evaluation and management. Accepts patient for admission. Diagnosis Differential dx and/or dx ruled out: Diabetic ketoacidosis, hyperosmolar hyperglycemic state, and insulin noncompliance-induced hyperglycemia. Most likely dx, and/or detailed dx discussion: DKA Dispositon Disposition: Admit (ICU)
[2024-10-23] MEDS: SODIUM CHLORIDE 0.9% 1000 ML 1,000 ML IV (10:54)
[2024-10-23] MEDS: ONDANSETRON INJ 2 MG/ML INJ 2 ML 4 MG IVP ×2 (10:54→21:29)
[2024-10-23] MEDS: SODIUM CHLORIDE 0.9% 1000 ML 1,000 ML 999 ML IV (10:55)
[2024-10-23 11:06] LABS: Collection Type, Urine Clean Catch; Squamous Epithelial Cell,Urine 0 /hpf (0-5)
[2024-10-23 11:09] LABS: Base Excess -27 (-3-3); HCO3 2 mEq/L (20-26); Inspired O2, VO2 Liters 4 L/min; O2 Saturation 99 % (91-98); PCO2 9 mmHg (32.0-48.0); PO2 150 mmHg (83-108)
[2024-10-23 11:11] LABS: Beta Hydroxybutyrate 5.4 mmol/L (<0.6)
[2024-10-23 11:13] LABS: Bilirubin,Urine Negative (Negative); Blood,Urine Trace (Negative); Clarity,Urine Clear (Clear/Hazy); Color,Urine Colorless (Lt Yel-Yel); Glucose, Urine 4+ (Negative); Ketones,Urine 4+ (Negative); Leukocyte Esterase,Urine Negative (Negative); Nitrite,Urine Negative (Negative); PH,Urine 5.5 (5.0-7.0); Protein,Urine Trace (Neg - Trace); RBC,Urine < 1 /hpf (0-3); Specific Gravity,Urine 1.023 (1.001-1.035); Urobilinogen,Urine Negative mg/dL (0.0-1.0); WBC,Urine < 1 /hpf (0-5)
[2024-10-23 11:13] LABS: Allen Test Performed/OK; Puncture Site Left Radial
[2024-10-23 11:17] LABS: pH, Arterial 7.01 (7.35-7.45)
[2024-10-23 11:47] LABS: Alanine Aminotransferase 21 U/L (10-49); Albumin, Serum 4.7 gm/dL (3.5-5.0); Albumin/Globulin Ratio 1.7 (1.2-2.2); Alkaline Phosphatase 119 U/L (46-116); Anion Gap 21 (7-16); Aspartate Amino Transferase 24 U/L (0-34); BUN/Creatinine Ratio 8 Ratio (12-20); Bilirubin,Total 0.6 mg/dL (0.3-1.2); Blood Urea Nitrogen 12 mg/dL (9-23); Calcium 9.1 mg/dL (8.3-10.6); Calcium (Corrected) 9.1 mg/dL (8.5-10.1); Chloride 96 mMol/L (98-107); Creatinine (Component) 1.5 mg/dL (0.6-1.3); Estimated Creatinine Clearance 73.3 mL/min (>60); Globulin 2.7 gm/dL (2.3-3.5); Lipase 17 U/L (12-53); Magnesium 2.0 mg/dL (1.6-2.6); Osmolality,Calculated 275 (275-295); Phosphorous 4.5 mg/dL (2.4-5.1); Potassium 5.8 mMol/L (3.4-5.1); Sodium 127 mMol/L (136-145); Total Protein 7.4 gm/dL (5.7-8.2); eGFR > 60 See Note
[2024-10-23 11:49] LABS: Carbon Dioxide < 10.0 mMol/L (20.0-31.0); Glucose 477 mg/dL (74-106)
[2024-10-23] MEDS: Sodium Bicarb Inj 8.4% SYR 50 ML SYRINGE IV ×2 (12:09→12:40)
[2024-10-23 12:10] LABS: Basophils # (Auto) 0.1 Thou/mm3 (0.0-0.2); Basophils % (Auto) 0 % (0-2.5); Eosinophils # (Auto) 0.0 Thou/mm3 (0.0-0.5); Eosinophils % (Auto) 0 % (0-10); Hematocrit 47.3 % (41.0-53.0); Hemoglobin 15.8 g/dL (13.5-16.0); Immature Granulocytes Auto 0.19 Thou/mm3 (0.00-0.00); Lymphocytes # (Auto) 0.7 Thou/mm3 (1.0-4.8); Lymphocytes % (Auto) 2 % (10-50); Mean Corpuscular HGB Conc 33.4 g/dl (31.0-37.0); Mean Corpuscular Hemoglobin 28.1 pg (25.0-35.0); Mean Corpuscular Volume 84 fL (80-100); Monocytes # (Auto) 0.5 Thou/mm3 (0.0-0.8); Monocytes % (Auto) 2 % (0-12); Neutrophils # (Auto) 28.4 Thou/mm3 (1.8-7.7); Neutrophils % (Auto) 95 % (37-80); Nucleated Red Blood Cell # 0.00 Thou/mm3 (0.00-0.00); Nucleated Red Blood Cell % 0 /100 WBC (0); Platelet Count 379 Thou/mm3 (140-440); RDW Standard Deviation 37.9 fL (35.1-43.9); Red Blood Count 5.63 Miln/mm3 (4.50-5.90); White Blood Count 29.9 Thou/mm3 (3.8-10.6)
[2024-10-23] MEDS: INSULIN HUM REGULAR 1 UNIT/0.01 ML (PER UNIT) 10 UNIT IV (12:17)
[2024-10-23] MEDS: INSULIN REG 100 UNITS/100 ML 100 UNIT/100 ML BAG 8.549 UNIT IV (12:17)
[2024-10-23] MEDS: RINGERS LACTATED 1000 ML 1,000 ML 500 ML IV (12:24)
[2024-10-23 12:49] LABS: Procalcitonin 1.54 ng/ml (0.0-0.49)
[2024-10-23] MEDS: Sodium Bicarb 8.4% 50ml Vial* 88.23 MEQ in DEXTROSE 5%-WATER 500 ML 100 MEQ IV (12:49)
[2024-10-23 15:22] LABS: Lactate (Lactic Acid) 4.6 mMol/L (0.4-2.0)
--- NOTE | 2024-10-23 15:30 | XR_ITS ---
Examination: AP chest single view TECHNIQUE: AP portable upright chest single view Date and time: October 23, 2024 1602 hours Comparison October 26, 2024 INDICATIONS: Shortness of breath and weakness beginning today. FINDINGS: Normal heart size. Lungs are clear. The osseous structures are intact IMPRESSION: No active disease
--- NOTE | 2024-10-23 16:01 | PD.RESHP ---
Documentation for date of: 10/23/24 [facility] History of Present Illness Chief complaint: Shortness of breath History of present illness: A 39-year-old male with significant past medical history of type 1 diabetes mellitus, polysubstance abuse, recurrent episodes of DKA presented to the hospital with chief complaints of difficulty in breathing and suspected DKA. Patient presented to the ED the day before admission with chief complaints of generalized body weakness and headache and also reported that he ran out of the insulin for 1 week and is not using it anymore. Found to have blood sugars of 268, beta hydroxybutyrate 4.3 for which patient was given 3 L LR bolus and subcutaneous insulin following which he was discharged home from the ED. As patient had previous history of recurrent episodes of DKA, patient this morning felt like he is having DKA due to emergency department. Denies fever, cough, abdominal pain, burning urination, recent sick contacts. Endorsed that he had 1 episode of vomiting when he came to the ED yesterday. Reported that he ran out of the insulin 1 week ago and is taking Lantus 80 units every day. ED course: - Vitals at the time of admission are significant for blood pressure 171/87 mmHg, pulse rate 111 bpm, respiratory rate 26/min. - Labs at the time of admission are significant for WBC 29.9, sodium 127, potassium 5.8, chloride 96, bicarb less than 10, anion gap 21, creatinine 1.5, blood glucose 477, alk phos 119, beta hydroxybutyrate 5.4, procalcitonin 1.54. - ABG at the time of admission showed pH 7.01, pCO2 9, bicarb 2, oxygen saturation 99. - Urine analysis is significant for 4+ proteinuria, 4+ glucose, trace blood, trace protein, pH 5.5, urine sodium 84.8, potassium 37, chloride 41.6. Urine tox screen positive for opiates fentanyl and methamphetamine. - Chest x-ray obtained in the ED showed no active disease, repeat chest x-ray is similar ? Patient given Zofran 4 mg IV push x 1, 2 L NS bolus, sodium bicarb 50 cc push, regular IV insulin 10 units and patient started on insulin drip. ICU team was consulted for admission and patient admitted to ICU for management of DKA Review of Systems Review of Systems Narrative Review of Systems: Constitutional: No Weight Change, No Fever, No Chills, No Night Sweats, Positive for fatigue and malaise ENT/Mouth: No Hearing Changes, No Ear Pain, No Nasal Congestion, No Sinus Pain, No Hoarseness, No sore throat, No Rhinorrhea, No Swallowing Difficulty Eyes: No Eye Pain, No Swelling, No Redness, No Foreign Body, No Discharge, No Vision Changes Cardiovascular: No Chest Pain, No SOB, No PND, No Dyspnea on Exertion, No Orthopnea, No Edema, No Palpitations Respiratory: No Cough, No Sputum, No Wheezing, Positive for Dyspnea Gastrointestinal: No Nausea, Positive for Vomiting, No Diarrhea, No Constipation, No Pain, No Heartburn, No Anorexia, No Dysphagia, No Hematochezia, No Melena, No Flatulence, No Jaundice Genitourinary: No Dysuria, No Urinary Frequency, No Hematuria, No Urinary Incontinence, No Urgency, No Flank Pain, No Urinary Flow Changes, No Hesitancy Musculoskeletal: No Arthralgias, No Myalgias, No Joint Swelling, No Joint Stiffness, No Back Pain, No Neck Pain, No Injury History Skin: No Skin Lesions, No Pruritis Neuro: No Weakness, No Numbness, No Paresthesias, No Loss of Consciousness, No Syncope, No Dizziness, No Headache, No Coordination Changes, No Recent Falls Past Medical History Past Medical History NEUROLOGIC: Negative Neurological Disorders CARDIAC: Negative Cardiac Disorders GASTROINTESTINAL: Negative Gastrointestinal Disorders GENITOURINARY: Negative Genitourinary Disorders or Renal Disease ENDOCRINE: Positive Diabetes Mellitus Type 1 HEMATOLOGIC: Negative Blood Disorders Surgical History SURGICAL: Positive Nose Surgery Social History SMOKING STATUS: Light (< 1 pack/day) SECOND HAND EXPOSURE: No SUBSTANCE USE: methamphetamine Exam Vital Signs Temp Pulse Resp BP Pulse Ox O2 Del Method 97.4 F 104 H 24 H 137/94 H 100 Room Air 10/23/24 10:12 10/23/24 15:38 10/23/24 15:38 10/23/24 12:16 10/23/24 12:16 10/23/24 12:16 Narrative Exam General: Lethargic, awake conversational significantly short of breath HEENT: Normocephalic, atraumatic, mucous membranes Dry. Heart: Sinus tachycardia, no murmurs. Lungs: Clear to auscultation with no wheezing or crackles.Chest deformity noted Kussmaul breathing pattern Abdomen: Soft, nondistended, nontender, positive bowel sounds. ?No guarding or rebound tenderness. Neurologic: Alert and oriented x3, no gross neurological deficit, and patient able to move all 4 extremities. Extremities: No edema. Skin: No rash or ecchymoses. Results: Labs 10/24/24 05:10 10/24/24 17:50 Labs: Short CBC 10/23/24 Range/Units 11:57 WBC 29.9 H D (3.8-10.6) Thou/mm3 Hgb 15.8 (13.5-16.0) g/dL Hct 47.3 (41.0-53.0) % Plt Count 379 D (140-440) Thou/mm3 BMP 10/23/24 10:40 Sodium 127 L Potassium 5.8 H D Chloride 96 L Carbon Dioxide < 10.0 L* BUN 12 Creatinine 1.5 H Glucose 477 H* D Calcium 9.1 D Liver Function 10/23/24 Range/Units 10:40 Total Bilirubin 0.6 (0.3-1.2) mg/dL AST 24 (0-34) U/L ALT 21 (10-49) U/L Alkaline Phosphatase 119 H (46-116) U/L Albumin 4.7 (3.5-5.0) gm/dL Urine 10/23/24 Range/Units 10:30 Urine Color Colorless A (Lt Yel-Yel) Urine Clarity Clear (Clear/Hazy) Urine pH 5.5 (5.0-7.0) Ur Specific [place] 1.023 (1.001-1.035) Urine Protein Trace (Neg - Trace) Urine Glucose (UA) 4+ A (Negative) ABG Interpretation ABG results: 10/23/24 11:05 ABG pH 7.01 L* D ABG pCO2 9 L* D ABG pO2 150 H D ABG HCO3 2 L* ABG O2 Saturation 99 H ABG Base Excess -27 L Quality Measures Quality Measures none Medications Home Medications and Allergies Home Medications ?Medication ?Instructions ?Recorded ?Confirmed ?Type insulin degludec 100 unit/mL (3 90 unit subcut QAM 10/16/18 10/24/24 History mL) subcutaneous pen (Tresiba FlexTouch U-100 insulin) flash glucose scanning reader 06/21/21 10/24/24 History (FreeStyle Raghavendra 14 Day [place]) insulin lispro 100 unit/mL 20 unit subcut TID 06/21/21 10/24/24 History subcutaneous pen (Admelog SoloStar U-100 Insulin lispro) Allergies Allergy/AdvReac Type Severity Reaction Status Date / Time No Known Allergies Allergy Verified 10/22/24 15:20 Visit Medications Acetaminophen (Acetaminophen 325 Mg Tablet) 650 mg PO Q4HR PRN PRN Reason: PAIN SCALE 1-3 (mild Stop: 11/22/24 15:25 Dextrose (Dextrose 50%-Water Inj 50 Ml Syringe) 25 ml IV [id number] PRN PRN Reason: Blood Sugar - Low Enoxaparin Sodium (Enoxaparin Sod Inj 40 Mg/0.4 Ml Syringe) 40 mg SC QDAY LATONYA Stop: 11/07/24 08:59 Insulin Human Regular (Myxredlin) 100 unit in 100 mls @ 8.549 mls/hr IV .[id number] PRN; Protocol PRN Reason: PER PROTOCOL Stop: 11/22/24 11:53 Last Titration: 10/23/24 15:05 Dose: 0.1 unit/kg/hr, 8.549 mls/hr Potassium Chloride (Kcl Ivpb) 10 meq in 100 mls @ 100 mls/hr IV .Q1H PRN PRN Reason: IF POTASSIUM LESS THAN 3.3 Stop: 11/22/24 15:25 Magnesium Sulfate (Magnesium Sulfate Ivpb) 2 gm in 50 mls @ 25 mls/hr IV .Q2H PRN PRN Reason: PER DKA PROTOCOL Stop: 11/22/24 15:25 Dextrose/Lactated Ringer's (D5-Lr) 1,000 mls @ 250 mls/hr IV .Q4H PRN PRN Reason: PER PROTOCOL Stop: 11/22/24 15:25 Lactated Ringer's (Lactated Ringers) 1,000 mls @ 250 mls/hr IV .Q4H PRN PRN Reason: PER PROTOCOL Stop: 10/24/24 15:25 Potassium Chloride 20 meq/ (Lactated Ringer's) 1,010 mls @ 250 mls/hr IV .Q4H3M PRN PRN Reason: K LEVEL 3.3 TO 5.3mM/L Stop: 11/22/24 15:25 Potassium Chloride 40 meq/ (Lactated Ringer's) 1,020 mls @ 250 mls/hr IV .Q4H5M PRN PRN Reason: K LEVEL < 3.3 mM/L Stop: 11/22/24 15:25 Potassium Chloride 40 meq/ (Dextrose/Lactated Ringer's) 1,020 mls @ 250 mls/hr IV .Q4H5M PRN PRN Reason: K LEVEL < 3.3mM/L Stop: 11/22/24 15:25 Potassium Chloride (Kcl Ivpb) 10 meq in 100 mls @ 50 mls/hr IV PRN PRN PRN Reason: K LEVEL 3.3 to 5.3 & BG > 200 Stop: 11/22/24 15:25 Potassium Phosphate (Pot Phos 15 Mmol In Ns 250 Ml) 15 mmol in 250 mls @ 62.5 mls/hr IV PRN PRN PRN Reason: Phosphate <= 1mg/dL Stop: 11/22/24 15:25 Sodium Phosphate 15 mmol/ (Sodium Chloride) 255 mls @ 62.5 mls/hr IV .Q4H5M PRN PRN Reason: Phosphate <= 1mg/dL and K> than 5.3 Stop: 11/22/24 15:25 Potassium Chloride 20 meq/ (Dextrose/Lactated Ringer's) 1,010 mls @ 250 mls/hr IV .Q4H3M PRN PRN Reason: K LEVEL 3.3 TO 5.3 mM/L Stop: 11/22/24 15:38 Ondansetron HCl (Ondansetron Inj 2 Mg/Ml Inj 2 Ml) 4 mg IV Q6HR PRN PRN Reason: NAUSEA OR VOMITING Stop: 11/22/24 15:25 Pantoprazole Sodium (Pantoprazole Inj 40 Mg Vial) 40 mg IVP QDAY LATONYA Stop: 11/23/24 08:59 Sodium Bicarbonate (Sodium Bicarb Inj 8.4% Syr 50 Ml Syringe) 50 ml IV Q4HR PRN PRN Reason: For ph <= to 7.0 Stop: 11/22/24 15:25 Discontinued Medications Sodium Chloride (Ns) 1,000 mls @ 1,000 mls/hr IV .Q1H ONE Stop: 10/23/24 11:46 Last Infusion: 10/23/24 15:45 Dose: Infused Sodium Chloride (Ns) 1,000 mls @ 999 mls/hr IV .Q1H1M ONE Stop: 10/23/24 11:49 Last Infusion: 10/23/24 15:45 Dose: Infused Sodium Bicarbonate 88.23 meq/ (Dextrose) 588.23 mls @ 100 mls/hr IV .Q5H53M LATONYA Stop: 11/22/24 18:07 Sodium Bicarbonate 88.23 meq/ (Dextrose) 588.23 mls @ 100 mls/hr IV .Q5H53M ONE Stop: 10/23/24 18:07 Last Admin: 10/23/24 12:49 Dose: 100 mls/hr Lactated Ringer's (Lactated Ringers) 1,000 mls @ 500 mls/hr IV .Q2H ONE Stop: 10/23/24 14:13 Last Infusion: 10/23/24 15:45 Dose: Infused Insulin Human Regular 100 unit (/ IV Miscellaneous Supplies) 100 mls @ 8.549 mls/hr IV .[id number] PRN; Protocol PRN Reason: PER PROTOCOL Stop: 11/22/24 15:25 Potassium Cl/Dextrose/Lact Ringer's (Kcl 20 Meq/L In D5-Lr) 20 meq in 1,000 mls @ 250 mls/hr IV .Q4H PRN PRN Reason: K LEVEL 3.3 TO 5.3 mM/L Insulin Human Regular (Insulin Hum Regular 1 Unit/0.01 Ml (Per Unit)) 10 unit IV X1 ONE Stop: 10/23/24 11:53 Last Admin: 10/23/24 12:17 Dose: 10 unit Ondansetron HCl (Ondansetron Inj 2 Mg/Ml Inj 2 Ml) 4 mg IVP X1 ONE; Protocol Stop: 10/23/24 10:48 Last Admin: 10/23/24 10:54 Dose: 4 mg Sodium Bicarbonate (Sodium Bicarb Inj 8.4% Syr 50 Ml Syringe) 50 ml IV X1 ONE Stop: 10/23/24 11:56 Last Admin: 10/23/24 12:09 Dose: 50 ml Sodium Bicarbonate (Sodium Bicarb Inj 8.4% Syr 50 Ml Syringe) 50 ml IV X1 ONE Stop: 10/23/24 12:36 Last Admin: 10/23/24 12:40 Dose: 50 ml Assessment & Plan Plan Assessment and Plan: A 39-year-old male with significant past medical history of type 1 diabetes mellitus, polysubstance abuse, recurrent episodes of DKA presented to the hospital with chief complaints of difficulty in breathing and suspected DKA. 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 Neurochecks every 4 hours ? Treat underlying metabolic disorder #Methamphetamine dependence #Opiate dependence #Fentanyl dependence Patient's urine tox screen positive for opiates, fentanyl and methamphetamine. Currently unable to confirm with patient regarding drug use, per chart review patient's UTOX has been positive for substances in the past -security services specialist referral, will advise patient to refrain from drug use Cardiovascular system: #Sinus tachycardia Likely in setting of DKA, patient noted to be sinus tachycardic on exam, on presentation heart rate 111. - Treat underlying DKA - IV fluids per DKA protocol Respiratory: #Kussmaul breathing #Respiratory alkalosis Patient tachypneic on presentation, respiratory rate 26, initial ABG shows pCO2 9 likely secondary to tachypnea in setting of underlying metabolic acidosis ? Treat underlying DKA. GI: #Nausea and vomiting Patient complained of 1 episode of emesis, no blood noted in emesis, denies any nausea currently, was given Zofran 4 mg x 1 in emergency department ?Zofran as needed for nausea vomiting GI prophylaxis: IV pantoprazole Renal: #Acute kidney injury Patient's creatinine on presentation 1.5, dry mucous membrane patient in DKA, likely NENITA is prerenal. - IV fluids per DKA protocol - Follow renal panel - Dose medications renally - Avoid nephrotoxic agents # Combined high anion gap metabolic acidosis and normal anion gap metabolic acidosis # Lactic acidosis - Patient was found to have anion gap of 21 and bicarb less than 10, on ABG found to have bicarb of 2. - Delta delta gap showed combined high anion gap metabolic acidosis and normal anion gap metabolic acidosis which could be due to DKA and renal tubular acidosis type IV from diabetes mellitus Plan - Will treat underlying diabetic ketoacidosis - Urine electrolytes are sent - Will continue to monitor renal panel and lactate. #Hypovolemic hyponatremia #Hypochloremia Patient sodium on presentation 127, patient hypovolemic per volume status. Chloride on presentation 96 ?Patient was given 2 L NS bolus in the emergency department ?Follow renal panel #Hyperkalemia Patient's potassium on presentation 5.8, patient noted to be in DKA was given IV insulin in the emergency department. ?Continue IV fluids and insulin gtt. ? Trend potassium level Endocrine: #Diabetic ketoacidosis #Insulin-dependent type 1 diabetes mellitus, A1c 10.4 #Elevated beta hydroxybutyrate Trigger: Likely noncompliance, per ED note from yesterday patient ran out of insulin, has been inconsistent with his insulin use for a week, history of multiple episodes of DKA in the past Per chart review patient has history of type 1 diabetes mellitus, though patient has been prescribed Janumet in the past ?DKA protocol ?Insulin gtt. ?Trend renal panel every 4 hours, VBG every 4 hours ?IV fluids per DKA protocol, did receive about 3 L fluid bolus Musculoskeletal: No active problems Infectious disease: Blood cultures: Pending Hospital Maintenance: Dispo: ICU DVT ppx: Lovenox GI ppx: IV Protonix Diet: N.p.o. IV lines: Peripheral IVs Code status: Full code Dispo: ICU, DKA management Plan of care discussed with attending director product safety Dr. Marcelino Baptiste MD Internal medicine PGY 2 Attending Provider Attestation/Addendum Patient seen and examined in the ER. In brief this is a 39-year-old male who has a history of diabetes and ran out of his insulin several days ago. He presented to the ER yesterday for symptoms of DKA he was found to have an elevated beta hydroxy he received IV fluids and apparently must have been feeling better and was discharged at 3:00 in the morning. He returned later on the day significantly ill. He has altered mental status and is not able to give a full history. He does complain of nausea and vomiting shakes his head no to any episodes of diarrhea or pain. When asked about drug habits he says no but it is noted his U tox is positive Physical exam [id number], tachypnea, increased work of breathing, young and normal body habitus HEENT-normocephalic, atraumatic, sclera icteric, oral mucosa is extremely dry, poor dentition, EOMI, pupils equal and reactive responding to light, neck supple, no JVD Chest-lungs clear to auscultation bilaterally, heart regular rhythmic, no bruits or murmurs auscultated times exam, no tenderness on palpation of the chest wall, pectus excavatum Abdomen-soft, nontender, bowel sounds present, no rebound or guarding, no masses Extremities-pulses palpable, cool and clammy, moves all 4 extremities, mottling over bilateral knees, no clubbing Drips Insulin IV fluids Assessment and plan DKA-the patient is on a insulin drip and has received 3 L of IV fluids, will obtain labs every 4 hours, fingersticks every hour Metabolic acidosis-patient has a anion gap metabolic acidosis likely secondary to lactate as well as ketones however when a delta delta is calculated he appears to also have a nongap acidosis. Question if this is secondary to any underlying RTA given his diabetes as he denies diarrhea for any additional source of bicarb loss. He was given 2 A of bicarb in the ER. The ER started him on a bicarb drip however this has been DC'd. Will give additional amps of bicarb as needed. Leukocytosis-likely reactive in nature in the setting of DKA, no obvious source of sepsis is identified Nausea and vomiting-in the setting of DKA, as needed Asiya Case discussed with ICU team discussed with ER Labs, imaging and records reviewed Approximately 65 critical care minutes required for evaluation, exam, review, intervention, discussion and formulation of plan of care for this critically ill patient with severe DKA and a profound metabolic acidosis at high risk for further ongoing decompensation
[2024-10-23 16:03] LABS: Reflex Lactate? Y
[2024-10-23 16:18] LABS: Base Excess -19 (-3-3); HCO3 5 mEq/L (20-26); Inspired Oxygen, FIO2 21 %; O2 Saturation 99 % (91-98); PCO2 12 mmHg (32.0-48.0); PO2 122 mmHg (83-108); pH, Arterial 7.24 (7.35-7.45)
[2024-10-23 16:22] LABS: Allen Test Performed/OK; Puncture Site Left Radial
[2024-10-23 16:34] LABS: Amphetamine/Methamp Scrn,U Positive (Negative); Barbiturate Screen,Urine Negative (Negative); Benzodiazepines Screen,Urine Negative (Negative); Benzoylecgonine Screen, Ur Negative (Negative); Chloride,Urine Random 41.6 mMol/L (55.0-125.0); Fentanyl Screen,Urine Positive (Negative); Opiate Screen,Urine Positive (Negative); Potassium,Urine Random 37 mMol/L (12-62); Sodium,Urine Random 84.8 mMol/L (20.0-110.0); THC Screen,Urine Negative (Negative)
[2024-10-23 16:38] LABS: Lactic Acid, 3 HR 4.5 mMol/L (0.4-2.0)
[2024-10-23 16:40] LABS: Beta Hydroxybutyrate 6.3 mmol/L (<0.6)
[2024-10-23 16:57] LABS: Glucose Estimated Average 252 mg/dL (80-131); Hemoglobin A1C 10.4 % Hgb (4.8-6.0)
[2024-10-23 17:58] LABS: Albumin, Serum 4.7 gm/dL (3.5-5.0); Anion Gap 24 (7-16); BUN/Creatinine Ratio 13 Ratio (12-20); Blood Urea Nitrogen 15 mg/dL (9-23); Calcium 9.0 mg/dL (8.3-10.6); Calcium (Corrected) 9.0 mg/dL (8.5-10.1); Chloride 104 mMol/L (98-107); Creatinine (Component) 1.2 mg/dL (0.6-1.3); Estimated Creatinine Clearance 91.6 mL/min (>60); Glucose 247 mg/dL (74-106); Magnesium 2.0 mg/dL (1.6-2.6); Osmolality,Calculated 284 (275-295); Phosphorous 3.1 mg/dL (2.4-5.1); Potassium 4.7 mMol/L (3.4-5.1); Sodium 138 mMol/L (136-145); eGFR > 60 See Note
[2024-10-23 18:00] LABS: Carbon Dioxide < 10.0 mMol/L (20.0-31.0)
[2024-10-23] MEDS: POT CHL ADDITIVE 20 MEQ in DEXTROSE 5%-LACTATED RINGERS 1,000 ML 250 MEQ IV ×2 (18:05→22:14)
[2024-10-23] MEDS: DEXTROSE 5%-LACTATED RINGERS 1,000 ML 250 ML IV (18:22)
[2024-10-23 21:13] LABS: Lactate (Lactic Acid) 1.2 mMol/L (0.4-2.0)
[2024-10-23] MEDS: RINGERS LACTATED 1000 ML 1,000 ML 250 ML IV (21:20)
[2024-10-23] MEDS: POTASSIUM CHL 10 mEq IVPB 10 MEQ/100 ML BAG 50 MEQ IV (21:24)
[2024-10-23 22:25] LABS: Anion Gap 18 (7-16); BUN/Creatinine Ratio 17 Ratio (12-20); Blood Urea Nitrogen 17 mg/dL (9-23); Calcium 8.7 mg/dL (8.3-10.6); Chloride 108 mMol/L (98-107); Creatinine (Component) 1.0 mg/dL (0.6-1.3); Estimated Creatinine Clearance 109.9 mL/min (>60); Glucose 209 mg/dL (74-106); Magnesium 1.7 mg/dL (1.6-2.6); Osmolality,Calculated 281 (275-295); Phosphorous 1.3 mg/dL (2.4-5.1); Potassium 4.2 mMol/L (3.4-5.1); Sodium 137 mMol/L (136-145); eGFR > 60 See Note
[2024-10-23 22:26] LABS: Albumin, Serum 3.7 gm/dL (3.5-5.0); Calcium (Corrected) 8.9 mg/dL (8.5-10.1)
[2024-10-23 22:32] LABS: Carbon Dioxide 11.3 mMol/L (20.0-31.0)
[2024-10-23] MEDS: Magnesium Sulfate 2 GM Ivpb 2 GM/50 ML BAG IV (22:59)
[2024-10-24] VITALS (22 sets, daily range): BP systolic 109–139; BP diastolic 58–87; PULSE 50–108; RESP 20–100; TEMP 36.2–36.9; O2SAT 100; BMI 18.2; BMI 19.3
[2024-10-24] MEDS: INSULIN REG 100 UNITS/100 ML 100 UNIT/100 ML BAG IV (01:00)
[2024-10-24] MEDS: DEXTROSE 5%-LACTATED RINGERS 1,000 ML 250 ML IV ×2 (01:01→05:56)
[2024-10-24 01:15] LABS: Lactate (Lactic Acid) 4.4 mMol/L (0.4-2.0)
[2024-10-24 01:28] LABS: Albumin, Serum 3.9 gm/dL (3.5-5.0); Anion Gap 19 (7-16); BUN/Creatinine Ratio 9 Ratio (12-20); Blood Urea Nitrogen 10 mg/dL (9-23); Calcium 9.2 mg/dL (8.3-10.6); Calcium (Corrected) 9.3 mg/dL (8.5-10.1); Chloride 107 mMol/L (98-107); Creatinine (Component) 1.1 mg/dL (0.6-1.3); Estimated Creatinine Clearance 99.9 mL/min (>60); Glucose 176 mg/dL (74-106); Magnesium 2.1 mg/dL (1.6-2.6); Osmolality,Calculated 282 (275-295); Phosphorous 1.6 mg/dL (2.4-5.1); Potassium 4.4 mMol/L (3.4-5.1); Sodium 140 mMol/L (136-145); eGFR > 60 See Note
[2024-10-24] MEDS: RINGERS LACTATED 1000 ML 1,000 ML 999 ML IV (01:33)
[2024-10-24 01:41] LABS: Carbon Dioxide 14.4 mMol/L (20.0-31.0)
[2024-10-24] MEDS: POTASSIUM CHL 10 mEq IVPB 10 MEQ/100 ML BAG 50 MEQ IV ×2 (01:52→04:01)
[2024-10-24 01:57] LABS: Base Excess -2 (-3-3); HCO3 20 mEq/L (20-26); Inspired Oxygen, FIO2 21 %; O2 Saturation 99 % (91-98); PCO2 26 mmHg (32.0-48.0); PO2 91 mmHg (83-108); pH, Arterial 7.48 (7.35-7.45)
[2024-10-24 01:59] LABS: Allen Test Performed/OK; Puncture Site Right Radial
[2024-10-24 04:01] LABS: Reflex Lactate? Y
[2024-10-24 05:40] LABS: Lactate (Lactic Acid) 3.4 mMol/L (0.4-2.0)
[2024-10-24 05:53] LABS: Basophils # (Auto) 0.0 Thou/mm3 (0.0-0.2); Basophils % (Auto) 0 % (0-2.5); Eosinophils # (Auto) 0.0 Thou/mm3 (0.0-0.5); Eosinophils % (Auto) 0 % (0-10); Hematocrit 45.6 % (41.0-53.0); Hemoglobin 16.0 g/dL (13.5-16.0); Immature Granulocytes Auto 0.18 Thou/mm3 (0.00-0.00); Lymphocytes # (Auto) 1.5 Thou/mm3 (1.0-4.8); Lymphocytes % (Auto) 6 % (10-50); Mean Corpuscular HGB Conc 35.1 g/dl (31.0-37.0); Mean Corpuscular Hemoglobin 28.2 pg (25.0-35.0); Mean Corpuscular Volume 80 fL (80-100); Monocytes # (Auto) 1.7 Thou/mm3 (0.0-0.8); Monocytes % (Auto) 7 % (0-12); Neutrophils # (Auto) 22.0 Thou/mm3 (1.8-7.7); Neutrophils % (Auto) 87 % (37-80); Nucleated Red Blood Cell # 0.00 Thou/mm3 (0.00-0.00); Nucleated Red Blood Cell % 0 /100 WBC (0); Platelet Count 306 Thou/mm3 (140-440); RDW Standard Deviation 36.9 fL (35.1-43.9); Red Blood Count 5.68 Miln/mm3 (4.50-5.90); White Blood Count 25.5 Thou/mm3 (3.8-10.6)
[2024-10-24 06:33] LABS: Alanine Aminotransferase 16 U/L (10-49); Albumin, Serum 3.9 gm/dL (3.5-5.0); Albumin/Globulin Ratio 1.8 (1.2-2.2); Alkaline Phosphatase 85 U/L (46-116); Anion Gap 17 (7-16); Aspartate Amino Transferase 16 U/L (0-34); BUN/Creatinine Ratio 10 Ratio (12-20); Bilirubin,Total 0.7 mg/dL (0.3-1.2); Blood Urea Nitrogen 10 mg/dL (9-23); Calcium 9.4 mg/dL (8.3-10.6); Calcium (Corrected) 9.5 mg/dL (8.5-10.1); Carbon Dioxide 18.9 mMol/L (20.0-31.0); Chloride 106 mMol/L (98-107); Creatinine (Component) 1.0 mg/dL (0.6-1.3); Estimated Creatinine Clearance 86.6 mL/min (>60); Globulin 2.2 gm/dL (2.3-3.5); Glucose 178 mg/dL (74-106); Magnesium 1.7 mg/dL (1.6-2.6); Osmolality,Calculated 286 (275-295); Phosphorous 1.2 mg/dL (2.4-5.1); Potassium 3.5 mMol/L (3.4-5.1); Sodium 142 mMol/L (136-145); Total Protein 6.1 gm/dL (5.7-8.2); eGFR > 60 See Note
[2024-10-24 08:38] LABS: Reflex Lactate? Y
[2024-10-24 09:40] LABS: Lactate (Lactic Acid) 3.5 mMol/L (0.4-2.0)
[2024-10-24] MEDS: ENOXAPARIN SOD INJ 40 MG/0.4 ML SYRINGE SC (09:52)
[2024-10-24] MEDS: NAPH,KPH MBDB 1 PACKET (1.5 GM) PO (09:52)
[2024-10-24 10:03] LABS: Albumin, Serum 3.5 gm/dL (3.5-5.0); Anion Gap 14 (7-16); BUN/Creatinine Ratio 11 Ratio (12-20); Blood Urea Nitrogen 9 mg/dL (9-23); Calcium 9.0 mg/dL (8.3-10.6); Calcium (Corrected) 9.4 mg/dL (8.5-10.1); Carbon Dioxide 21.5 mMol/L (20.0-31.0); Chloride 108 mMol/L (98-107); Creatinine (Component) 0.8 mg/dL (0.6-1.3); Estimated Creatinine Clearance 108.2 mL/min (>60); Glucose 144 mg/dL (74-106); Magnesium 1.5 mg/dL (1.6-2.6); Osmolality,Calculated 286 (275-295); Phosphorous 1.2 mg/dL (2.4-5.1); Potassium 3.4 mMol/L (3.4-5.1); Sodium 143 mMol/L (136-145); eGFR > 60 See Note
[2024-10-24] MEDS: Magnesium Sulfate 2 GM Ivpb 2 GM/50 ML BAG IV (10:38)
[2024-10-24] MEDS: POT CHL ADDITIVE 20 MEQ in DEXTROSE 5%-LACTATED RINGERS 1,000 ML 250 MEQ IV (10:52)
[2024-10-24 12:09] LABS: Lactate (Lactic Acid) 1.8 mMol/L (0.4-2.0)
[2024-10-24 12:30] LABS: Magnesium 1.9 mg/dL (1.6-2.6); Phosphorous 1.1 mg/dL (2.4-5.1)
[2024-10-24 12:34] LABS: Reflex Lactate? Y
--- NOTE | 2024-10-24 13:25 | ESPR_ITS ---
Documentation for date of: 10/24/24 Subjective Subjective Interval history: HPI: A 39-year-old male with significant past medical history of type 1 diabetes mellitus, polysubstance abuse, recurrent episodes of DKA presented to the hospital with chief complaints of difficulty in breathing and suspected DKA. Patient presented to the ED the day before admission with chief complaints of generalized body weakness and headache and also reported that he ran out of the insulin for 1 week and is not using it anymore. Found to have blood sugars of 268, beta hydroxybutyrate 4.3 for which patient was given 3 L LR bolus and subcutaneous insulin following which he was discharged home from the ED. As patient had previous history of recurrent episodes of DKA, patient this morning felt like he is having DKA due to emergency department. Denies fever, cough, abdominal pain, burning urination, recent sick contacts. Endorsed that he had 1 episode of vomiting when he came to the ED yesterday. Reported that he ran out of the insulin 1 week ago and is taking Lantus 80 units every day. Interval history: 10/24/24 The patient experienced 2-3 episodes of vomiting and retching overnight, but he has not had any further episodes this morning. He is currently alert and oriented, though he appears lethargic. The patient reports a good urine output. His anion gap has closed twice today, and his blood glucose has been steadily decreasing. The patient was taken off the insulin drip and started on 10 units of Lispro before each meal. The patient received a one-time dose of 40 units of Degludec this afternoon and will receive another dose tonight. The patient was transferred to the medical floor today. Exam Vital Signs Temp Pulse Resp BP Pulse Ox O2 Del Method 97.5 F 95 30 H 109/58 L 100 Room Air 10/24/24 12:10/24/24 12:10/24/24 12:10/24/24 12:10/24/24 12:10/24/24 12:00 Narrative Exam General: Lethargic, awake conversational, following commands HEENT: Normocephalic, atraumatic, mucous membranes Dry. Heart: S1 + S2, no murmurs. Lungs: Clear to auscultation with no wheezing or crackles.Chest deformity noted. Abdomen: Soft, nondistended, nontender, positive bowel sounds. ?No guarding or rebound tenderness. Extremities: No edema. Pedal pulses present bilaterally. Skin: No rash or ecchymoses. Neurologic: Alert and oriented x3, no gross neurological deficit, and patient able to move all 4 extremities. Objective Labs 10/24/24 05:10 10/24/24 11:55 Labs: Laboratory Results - last 24 hr 10/23/24 10/23/24 10/23/24 10:30 13:00 16:12 WBC RBC Hgb Hct MCV MCH MCHC RDW Std Deviation Plt Count Neut % (Auto) Lymph % (Auto) [place] % (Auto) Eos % (Auto) Baso % (Auto) Neut # (Auto) Lymph # (Auto) [place] # (Auto) Eos # (Auto) Baso # (Auto) Immature Gran # (Auto) Absolute Nucleated RBC Immature Gran % Nucleated RBC % Puncture Site Left Radial ABG pH 7.24 L D ABG pCO2 12 L* ABG pO2 122 H D ABG HCO3 5 L* ABG O2 Saturation 99 H ABG Base Excess -19 L FiO2 21 Sodium Potassium Chloride Carbon Dioxide Anion Gap BUN Creatinine Estim Creat Clear Calc eGFR BUN/Creatinine Ratio Glucose Estimated Ave Glu mg/dL Hemoglobin A1c Calculated Osmolality Lactic Acid 4.6 H* Calcium Corrected Calcium Phosphorus Magnesium Total Bilirubin AST ALT Alkaline Phosphatase Total Protein Albumin Globulin Albumin/Globulin Ratio Beta-Hydroxybutyrate/Acetoacetate Ur Random Sodium 84.8 Ur Random Potassium 37 Ur Random Chloride 41.6 L Urine Opiates Screen Positive A Urine Fentanyl Screen Positive A Ur Barbiturates Screen Negative U Amphetamin/Meth Scrn Positive A U Benzodiazepines Scrn Negative U Cocaine Metab Screen Negative U Marijuana (THC) Screen Negative 10/23/24 10/23/24 10/24/24 16:23 20:45 00:50 WBC RBC Hgb Hct MCV MCH MCHC RDW Std Deviation Plt Count Neut % (Auto) Lymph % (Auto) [place] % (Auto) Eos % (Auto) Baso % (Auto) Neut # (Auto) Lymph # (Auto) [place] # (Auto) Eos # (Auto) Baso # (Auto) Immature Gran # (Auto) Absolute Nucleated RBC Immature Gran % Nucleated RBC % Puncture Site ABG pH ABG pCO2 ABG pO2 ABG HCO3 ABG O2 Saturation ABG Base Excess FiO2 Sodium 138 D 137 140 Potassium 4.7 D 4.2 D 4.4 Chloride 104 108 H 107 Carbon Dioxide < 10.0 L* 11.3 L* 14.4 L* Anion Gap 24 H 18 H 19 H BUN 15 17 10 Creatinine 1.2 1.0 1.1 Estim Creat Clear Calc 91.6 109.9 99.9 eGFR > 60 > 60 > 60 BUN/Creatinine Ratio 13 17 9 L Glucose 247 H D [address] Glu mg/dL 252 H Hemoglobin A1c 10.4 H Calculated Osmolality 284 281 282 Lactic Acid 4.5 H* 1.2 4.4 H* Calcium 9.0 8.7 9.2 Corrected Calcium 9.0 8.9 9.3 Phosphorus 3.1 1.3 L 1.6 L Magnesium 2.0 1.7 2.1 Total Bilirubin AST ALT Alkaline Phosphatase Total Protein Albumin 4.7 3.7 D 3.9 Globulin Albumin/Globulin Ratio Beta-Hydroxybutyrate/Acetoacetate 6.3 H Ur Random Sodium Ur Random Potassium Ur Random Chloride Urine Opiates Screen Urine Fentanyl Screen Ur Barbiturates Screen U Amphetamin/Meth Scrn U Benzodiazepines Scrn U Cocaine Metab Screen U Marijuana (THC) Screen 10/24/24 10/24/24 10/24/24 01:49 05:10 09:00 WBC 25.5 H RBC 5.68 Hgb 16.0 Hct 45.6 MCV 80 MCH 28.2 MCHC 35.1 RDW Std Deviation 36.9 Plt Count 306 D Neut % (Auto) 87 H Lymph % (Auto) 6 L [place] % (Auto) 7 Eos % (Auto) 0 Baso % (Auto) 0 Neut # (Auto) 22.0 H Lymph # (Auto) 1.5 [place] # (Auto) 1.7 H Eos # (Auto) 0.0 Baso # (Auto) 0.0 Immature Gran # (Auto) 0.18 H Absolute Nucleated RBC 0.00 Immature Gran % 1 H Nucleated RBC % 0 Puncture Site Right Radial ABG pH 7.48 H D ABG pCO2 26 L D ABG pO2 91 D ABG HCO3 20 ABG O2 Saturation 99 H ABG Base Excess -2 FiO2 21 Sodium 142 143 Potassium 3.5 D 3.4 Chloride 106 108 H Carbon Dioxide 18.9 L 21.5 Anion Gap 17 H 14 BUN 10 9 Creatinine 1.0 0.8 Estim Creat Clear Calc 86.6 108.2 eGFR > 60 > 60 BUN/Creatinine Ratio 10 L 11 L Glucose [address] Glu mg/dL Hemoglobin A1c Calculated Osmolality 286 286 Lactic Acid 3.4 H 3.5 H Calcium 9.4 9.0 Corrected Calcium 9.5 9.4 Phosphorus 1.2 L 1.2 L Magnesium 1.7 1.5 L Total Bilirubin 0.7 AST 16 ALT 16 Alkaline Phosphatase 85 D Total Protein 6.1 Albumin 3.9 3.5 Globulin 2.2 L Albumin/Globulin Ratio 1.8 Beta-Hydroxybutyrate/Acetoacetate Ur Random Sodium Ur Random Potassium Ur Random Chloride Urine Opiates Screen Urine Fentanyl Screen Ur Barbiturates Screen U Amphetamin/Meth Scrn U Benzodiazepines Scrn U Cocaine Metab Screen U Marijuana (THC) Screen 10/24/24 11:55 WBC RBC Hgb Hct MCV MCH MCHC RDW Std Deviation Plt Count Neut % (Auto) Lymph % (Auto) [place] % (Auto) Eos % (Auto) Baso % (Auto) Neut # (Auto) Lymph # (Auto) [place] # (Auto) Eos # (Auto) Baso # (Auto) Immature Gran # (Auto) Absolute Nucleated RBC Immature Gran % Nucleated RBC % Puncture Site ABG pH ABG pCO2 ABG pO2 ABG HCO3 ABG O2 Saturation ABG Base Excess FiO2 Sodium Potassium Chloride Carbon Dioxide Anion Gap BUN Creatinine Estim Creat Clear Calc eGFR BUN/Creatinine Ratio Glucose Estimated Ave Glu mg/dL Hemoglobin A1c Calculated Osmolality Lactic Acid 1.8 Calcium Corrected Calcium Phosphorus 1.1 L Magnesium 1.9 Total Bilirubin AST ALT Alkaline Phosphatase Total Protein Albumin Globulin Albumin/Globulin Ratio Beta-Hydroxybutyrate/Acetoacetate Ur Random Sodium Ur Random Potassium Ur Random Chloride Urine Opiates Screen Urine Fentanyl Screen Ur Barbiturates Screen U Amphetamin/Meth Scrn U Benzodiazepines Scrn U Cocaine Metab Screen U Marijuana (THC) Screen ABG Interpretation ABG results: 10/23/24 10/23/24 10/24/24 11:05 16:12 01:49 ABG pH 7.01 L* D 7.24 L D 7.48 H D ABG pCO2 9 L* D 12 L* 26 L D ABG pO2 150 H D 122 H D 91 D ABG HCO3 2 L* 5 L* 20 ABG O2 Saturation 99 H 99 H 99 H ABG Base Excess -27 L -19 L -2 Quality Measures Quality Measures none Assessment & Plan Assessment Current Active Medications: Generic Name Dose Route Start Last Admin Trade Name Freverónica PRN Reason Stop Dose Admin Acetaminophen 650 mg 10/23/24 16:11 Acetaminophen 325 Mg Tablet PO 11/22/24 15:25 Q6HR PRN PAIN SCALE 1-3 (mild Dextrose 25 ml 10/23/24 15:26 Dextrose 50%-Water Inj 50 Ml Syringe IV [id number] PRN Blood Sugar - Low Enoxaparin Sodium 40 mg 10/24/24 09:00 10/24/24 09:52 Enoxaparin Sod Inj 40 Mg/0.4 Ml Syringe SC 11/07/24 08:59 40 mg QDAY LATONYA Administration Insulin Human Regular 100 unit in 100 mls @ 8.549 mls/hr 10/23/24 11:54 10/24/24 12:00 Myxredlin IV 11/22/24 11:53 0.05 unit/kg/hr .[id number] PRN 4.274 mls/hr PER PROTOCOL Titration Protocol 0.1 UNIT/KG/HR Potassium Chloride 10 meq in 100 mls @ 100 mls/hr 10/23/24 15:26 Kcl Ivpb IV 11/22/24 15:25 .Q1H PRN IF POTASSIUM LESS THAN 3.3 Magnesium Sulfate 2 gm in 50 mls @ 25 mls/hr 10/23/24 15:26 10/24/24 12:00 Magnesium Sulfate Ivpb IV 11/22/24 15:25 Infused .Q2H PRN Infusion PER DKA PROTOCOL Dextrose/Lactated Ringer's 1,000 mls @ 250 mls/hr 10/23/24 15:26 10/24/24 06:00 D5-Lr IV 11/22/24 15:25 250 mls/hr .Q4H PRN Infusion PER PROTOCOL Lactated Ringer's 1,000 mls @ 250 mls/hr 10/23/24 15:26 10/24/24 00:00 Lactated Ringers IV 10/24/24 15:25 0 mls/hr .Q4H PRN Infusion PER PROTOCOL Potassium Chloride 20 meq/ 1,010 mls @ 250 mls/hr 10/23/24 15:26 Lactated Ringer's IV 11/22/24 15:25 .Q4H3M PRN K LEVEL 3.3 TO 5.3mM/L Potassium Chloride 40 meq/ 1,020 mls @ 250 mls/hr 10/23/24 15:26 Lactated Ringer's IV 11/22/24 15:25 .Q4H5M PRN K LEVEL < 3.3 mM/L Potassium Chloride 40 meq/ 1,020 mls @ 250 mls/hr 10/23/24 15:26 Dextrose/Lactated Ringer's IV 11/22/24 15:25 .Q4H5M PRN K LEVEL < 3.3mM/L Potassium Chloride 10 meq in 100 mls @ 50 mls/hr 10/23/24 15:26 10/24/24 04:01 Kcl Ivpb IV 11/22/24 15:25 50 mls/hr PRN PRN Administration K LEVEL 3.3 to 5.3 & BG > 200 Potassium Phosphate 15 mmol in 250 mls @ 62.5 mls/hr 10/23/24 15:26 Pot Phos 15 Mmol In Ns 250 Ml IV 11/22/24 15:25 PRN PRN Phosphate <= 1mg/dL Sodium Phosphate 15 mmol/ 255 mls @ 62.5 mls/hr 10/23/24 15:26 Sodium Chloride IV 11/22/24 15:25 .Q4H5M PRN Phosphate <= 1mg/dL and K> than 5.3 Potassium Chloride 20 meq/ 1,010 mls @ 250 mls/hr 10/23/24 15:39 10/24/24 10:52 Dextrose/Lactated Ringer's IV 11/22/24 15:38 250 mls/hr .Q4H3M PRN Administration K LEVEL 3.3 TO 5.3 mM/L Ondansetron HCl 4 mg 10/23/24 16:06 10/23/24 21:29 Ondansetron Inj 2 Mg/Ml Inj 2 Ml IVP 11/22/24 16:05 4 mg Q6HR PRN Administration NAUSEA OR VOMITING Protocol Pantoprazole Sodium 40 mg 10/24/24 09:00 10/24/24 09:52 Pantoprazole Inj 40 Mg Vial IVP 11/23/24 08:59 40 mg QDAY LATONYA Administration Sodium Bicarbonate 50 ml 10/23/24 15:26 Sodium Bicarb Inj 8.4% Syr 50 Ml Syringe IV 11/22/24 15:25 Q4HR PRN For ph <= to 7.0 Plan A 39-year-old male with significant past medical history of type 1 diabetes mellitus, polysubstance abuse, recurrent episodes of DKA. Patient admitted to ICU for DKA management. Patient's DKA status has resolved and patient is stable enough to be downgraded to the medical floor. Neurology: #Acute encephalopathy, resolved With treatment of DKA #Methamphetamine dependence #Opiate dependence #Fentanyl dependence Patient's urine tox screen positive for opiates, fentanyl and methamphetamine. Currently unable to confirm with patient regarding drug use, per chart review patient's UTOX has been positive for substances in the past -inpatient services director referral, will advise patient to refrain from drug use Cardiovascular system: No active issues. Respiratory: #Respiratory alkalosis Likely secondary to hyperventilation from pain from retching due to vomiting multiple times Plan ? Manage nausea ? Pain medication as needed GI: #Nausea and vomiting ?Zofran as needed for nausea/vomiting GI prophylaxis: IV pantoprazole Renal: #Acute kidney injury Patient's creatinine on presentation 1.5, dry mucous membrane patient in DKA, likely NENITA is prerenal. - IV fluids per DKA protocol - Follow renal panel - Dose medications renally - Avoid nephrotoxic agents #Lactic acidosis Secondary to the use of Janumet #High anion gap metabolic acidosis, resolved #Hypokalemia ?Replete as necessary Endocrine: #Diabetic ketoacidosis, resolved #Insulin-dependent type 1 diabetes mellitus, A1c 10.4 #Elevated beta hydroxybutyrate, resolved Trigger: Likely noncompliance, per ED note from yesterday patient ran out of insulin, has been inconsistent with his insulin use for a week, history of multiple episodes of DKA in the past Per chart review patient has history of type 1 diabetes mellitus, though patient has been prescribed Janumet in the past Patient no longer in DKA as of 10/24/2024 Patient mentions takes Lantus 80 units in the morning and 15 to 20 units of lispro premeals. ?Degludec 40 units x 1 in p.m. and 40 units x 1 in evening ?Hypoglycemia protocol in place ?Blood glucose checks ACHS ?Lispro 10 units premeals 3 times daily ?Primary hospitalist team to adjust insulin requirements as necessary Infectious disease: Blood cultures so far negative Hospital Maintenance: Dispo: Downgrade to med/tele DVT ppx: Lovenox GI ppx: IV Protonix Diet: Carb consistent diet IV lines: Peripheral IVs Code status: Full code Case discussed with my attending Dr. Marcelino Hanna MD PGY-1 Attending Provider Attestation/Addendum Patient seen and examined with resident team. In brief this is a 39-year-old male admitted yesterday for DKA. Overnight he continued to have nausea and vomiting. This morning he is awake alert and overall feeling better than yesterday though still feels unwell. Denies abdominal pain though does complain of ongoing nausea and vomiting. No shortness of breath no fever. On physical exam the oral mucosa is dry however not as bad as yesterday, lungs sound clear, heart regular rhythmic, abdomen is soft, no edema lower extremities and no mottling. For his DKA we will continue the insulin drip and once his anion gap is closed x 2 will transition to subcu Lantus as well as a sliding scale. For his nausea he is on as needed Zofran will add on Reglan. Question if he has any underlying gastroparesis. On his morning ABG there was some respiratory alkalosis likely secondary to hyperventilation from pain from his nausea vomiting and retching. There is also a suspected underlying RTA likely related to his diabetes. His multiple electrolyte imbalances have been repleted. Once he is off the insulin drip will be able to downgrade. Case discussed with ICU team Labs, imaging and records reviewed Approximately 37 minutes required for evaluation, exam, review, intervention, discussion and formulation of plan of care for this ill gentleman with DKA.
[2024-10-24 13:55] LABS: Albumin, Serum 3.3 gm/dL (3.5-5.0); Anion Gap 15 (7-16); BUN/Creatinine Ratio 10 Ratio (12-20); Blood Urea Nitrogen 8 mg/dL (9-23); Calcium 8.8 mg/dL (8.3-10.6); Calcium (Corrected) 9.4 mg/dL (8.5-10.1); Carbon Dioxide 20.4 mMol/L (20.0-31.0); Chloride 109 mMol/L (98-107); Creatinine (Component) 0.8 mg/dL (0.6-1.3); Estimated Creatinine Clearance 108.2 mL/min (>60); Glucose 176 mg/dL (74-106); Osmolality,Calculated 289 (275-295); Potassium 3.2 mMol/L (3.4-5.1); Sodium 144 mMol/L (136-145); eGFR > 60 See Note
[2024-10-24] MEDS: INSULIN DEGLUDEC 5 UNIT/0.05 ML (PER 5 UNITS) 40 UNIT SC (15:07)
[2024-10-24] MEDS: NAPH,KPH MBDB 1 PACKET (1.5 GM) 2 PACKET PO ×2 (15:08→21:21)
[2024-10-24 16:09] LABS: Lactate (Lactic Acid) 3.5 mMol/L (0.4-2.0)
[2024-10-24 16:46] LABS: Magnesium 1.7 mg/dL (1.6-2.6); Phosphorous 1.2 mg/dL (2.4-5.1)
--- NOTE | 2024-10-24 17:05 | ESPR_ITS ---
<Statement entered by Ana Dobbs MD - 10/24/24 18:15> Patient was seen and examined at bedside. I agree on the assessment and plan on this note as documented by resident Sona Shi DO PGY1. 39-year-old male with past medical history of type 1 diabetes mellitus and polysubstance use, admitted to intensive care unit for diabetic ketoacidosis management was transitioned off of insulin drip earlier this morning received 40 units of Tresiba, tolerating diet well. Seen at bedside denies any nausea vomiting, source of DKA medication noncompliance, patient reports that he was unable to procure medication from pharmacy. Patient takes 80 units of Tresiba at home, will start patient on 80 units Tresiba in a.m., lispro 10 units AC at bedtime, sliding scale step 3 on top. Patient did have elevated lactate of 3.5 on downgrade, started on maintenance fluid 1 L LR, follow lactate. Patient does have uptrending white count, chest x-ray, blood cultures and urine analysis unremarkable for any infection, no fevers noted for the hospitalization. Disposition telemetry, blood glucose control, anticipate discharge in the next 24 to 48 hours. Case discussed with attending MD Ana Valdez MD PGY-2 Documentation for date of: 10/24/24 Subjective Subjective Interval history: Patient was admitted to [facility] on 10/23 for DKA with admission blood sugar of 477, bicarb of <10, K 5.8, beta hydroxybutyrate 5.4 with ABG showing pH 7.01 pCO2 9 and bicarb 2. Patient was admitted to ICU for DKA management where he was treated with insulin gtt., sodium bicarb and electrolyte repletions. Patient currently seen in ICU. States that he has not taken his Tresiba 80 units for the past 6 days, reports being unable to burr picker the medication due to feeling ill. Endorses last meth use a few days ago, is not forthcoming regarding last fentanyl and opiate use, stating that he smokes fentanyl and does not comment about opiates. Denies any current chest pain, shortness of breath abdominal pain or urinary symptoms, endorses some nausea no vomiting. States that he does feel weak but does not want to work with physical therapy. Reports taking no other medications at home besides Tresiba 80 units in the morning. Patient got 40 units of degludec in ICU at 3 PM today. If tonight ACHS glucose is elevated start every 4 hour glucose checks and sliding scale accordingly.. Plan to start degludec 80 units tomorrow morning with lispro 10 units ACHS with SSI in place. Exam Vital Signs Temp Pulse Resp BP Pulse Ox O2 Del Method 98.3 F 80 33 H 139/79 H 100 Room Air 10/24/24 16:00 10/24/24 16:00 10/24/24 16:00 10/24/24 16:00 10/24/24 16:00 10/24/24 16:00 Narrative Exam GENERAL: AOx3, no acute distress, lethargic, appears older than stated age HEENT: NC/AT, mucous membranes dry, bilateral sclera anicteric CARDIOVASCULAR: regular rate and rhythm, S1/S2 present, no murmurs appreciated PULMONARY: clear to auscultation bilaterally, no rales/rhonchi/wheezes ABDOMINAL: soft, non-tender, non-distended, no rebound/guarding, bowel sounds present EXTREMITIES: no peripheral edema SKIN: warm and dry, intact, no rashes NEURO: CN II-XII grossly intact, no focal deficits, alert, following commands Objective Labs 10/25/24 03:00 10/25/24 03:00 Labs: Laboratory Results - last 24 hr 10/23/24 10/23/24 10/24/24 16:23 20:45 00:50 WBC RBC Hgb Hct MCV MCH MCHC RDW Std Deviation Plt Count Neut % (Auto) Lymph % (Auto) [place] % (Auto) Eos % (Auto) Baso % (Auto) Neut # (Auto) Lymph # (Auto) [place] # (Auto) Eos # (Auto) Baso # (Auto) Immature Gran # (Auto) Absolute Nucleated RBC Immature Gran % Nucleated RBC % Puncture Site ABG pH ABG pCO2 ABG pO2 ABG HCO3 ABG O2 Saturation ABG Base Excess FiO2 Sodium 138 D 137 140 Potassium 4.7 D 4.2 D 4.4 Chloride 104 108 H 107 Carbon Dioxide < 10.0 L* 11.3 L* 14.4 L* Anion Gap 24 H 18 H 19 H BUN 15 17 10 Creatinine 1.2 1.0 1.1 Estim Creat Clear Calc 91.6 109.9 99.9 eGFR > 60 > 60 > 60 BUN/Creatinine Ratio 13 17 9 L Glucose 247 H D 209 H 176 H Calculated Osmolality 284 281 282 Lactic Acid 1.2 4.4 H* Calcium 9.0 8.7 9.2 Corrected Calcium 9.0 8.9 9.3 Phosphorus 3.1 1.3 L 1.6 L Magnesium 2.0 1.7 2.1 Total Bilirubin AST ALT Alkaline Phosphatase Total Protein Albumin 4.7 3.7 D 3.9 Globulin Albumin/Globulin Ratio 10/24/24 10/24/24 10/24/24 01:49 05:10 09:00 WBC 25.5 H RBC 5.68 Hgb 16.0 Hct 45.6 MCV 80 MCH 28.2 MCHC 35.1 RDW Std Deviation 36.9 Plt Count 306 D Neut % (Auto) 87 H Lymph % (Auto) 6 L [place] % (Auto) 7 Eos % (Auto) 0 Baso % (Auto) 0 Neut # (Auto) 22.0 H Lymph # (Auto) 1.5 [place] # (Auto) 1.7 H Eos # (Auto) 0.0 Baso # (Auto) 0.0 Immature Gran # (Auto) 0.18 H Absolute Nucleated RBC 0.00 Immature Gran % 1 H Nucleated RBC % 0 Puncture Site Right Radial ABG pH 7.48 H D ABG pCO2 26 L D ABG pO2 91 D ABG HCO3 20 ABG O2 Saturation 99 H ABG Base Excess -2 FiO2 21 Sodium 142 143 Potassium 3.5 D 3.4 Chloride 106 108 H Carbon Dioxide 18.9 L 21.5 Anion Gap 17 H 14 BUN 10 9 Creatinine 1.0 0.8 Estim Creat Clear Calc 86.6 108.2 eGFR > 60 > 60 BUN/Creatinine Ratio 10 L 11 L Glucose 178 H 144 H Calculated Osmolality 286 286 Lactic Acid 3.4 H 3.5 H Calcium 9.4 9.0 Corrected Calcium 9.5 9.4 Phosphorus 1.2 L 1.2 L Magnesium 1.7 1.5 L Total Bilirubin 0.7 AST 16 ALT 16 Alkaline Phosphatase 85 D Total Protein 6.1 Albumin 3.9 3.5 Globulin 2.2 L Albumin/Globulin Ratio 1.8 10/24/24 10/24/24 11:55 15:44 WBC RBC Hgb Hct MCV MCH MCHC RDW Std Deviation Plt Count Neut % (Auto) Lymph % (Auto) [place] % (Auto) Eos % (Auto) Baso % (Auto) Neut # (Auto) Lymph # (Auto) [place] # (Auto) Eos # (Auto) Baso # (Auto) Immature Gran # (Auto) Absolute Nucleated RBC Immature Gran % Nucleated RBC % Puncture Site ABG pH ABG pCO2 ABG pO2 ABG HCO3 ABG O2 Saturation ABG Base Excess FiO2 Sodium 144 Potassium 3.2 L Chloride 109 H Carbon Dioxide 20.4 Anion Gap 15 BUN 8 L Creatinine 0.8 Estim Creat Clear Calc 108.2 eGFR > 60 BUN/Creatinine Ratio 10 L Glucose 176 H Calculated Osmolality 289 Lactic Acid 1.8 3.5 H Calcium 8.8 Corrected Calcium 9.4 Phosphorus 1.1 L 1.2 L Magnesium 1.9 1.7 Total Bilirubin AST ALT Alkaline Phosphatase Total Protein Albumin 3.3 L Globulin Albumin/Globulin Ratio ABG Interpretation ABG results: 10/23/24 10/23/24 10/24/24 11:05 16:12 01:49 ABG pH 7.01 L* D 7.24 L D 7.48 H D ABG pCO2 9 L* D 12 L* 26 L D ABG pO2 150 H D 122 H D 91 D ABG HCO3 2 L* 5 L* 20 ABG O2 Saturation 99 H 99 H 99 H ABG Base Excess -27 L -19 L -2 Quality Measures Quality Measures VTE prophylaxis Assessment & Plan Assessment Current Active Medications: Generic Name Dose Route Start Last Admin Trade Name Freq PRN Reason Stop Dose Admin Acetaminophen 650 mg 10/23/24 16:11 Acetaminophen 325 Mg Tablet PO 11/22/24 15:25 Q6HR PRN PAIN SCALE 1-3 (mild Dextrose 25 ml 10/23/24 15:26 Dextrose 50%-Water Inj 50 Ml Syringe IV [id number] PRN Blood Sugar - Low Enoxaparin Sodium 40 mg 10/24/24 09:00 10/24/24 09:52 Enoxaparin Sod Inj 40 Mg/0.4 Ml Syringe SC 11/07/24 08:59 40 mg QDAY LATONYA Administration Insulin Human Regular 100 unit in 100 mls @ 8.549 mls/hr 10/23/24 11:54 10/24/24 16:00 Myxredlin IV 11/22/24 11:53 0 unit/kg/hr .[id number] PRN 0 mls/hr PER PROTOCOL Titration Protocol 0.1 UNIT/KG/HR Potassium Chloride 10 meq in 100 mls @ 100 mls/hr 10/23/24 15:26 Kcl Ivpb IV 11/22/24 15:25 .Q1H PRN IF POTASSIUM LESS THAN 3.3 Magnesium Sulfate 2 gm in 50 mls @ 25 mls/hr 10/23/24 15:26 10/24/24 12:00 Magnesium Sulfate Ivpb IV 11/22/24 15:25 Infused .Q2H PRN Infusion PER DKA PROTOCOL Dextrose/Lactated Ringer's 1,000 mls @ 250 mls/hr 10/23/24 15:26 10/24/24 06:00 D5-Lr IV 11/22/24 15:25 250 mls/hr .Q4H PRN Infusion PER PROTOCOL Potassium Chloride 20 meq/ 1,010 mls @ 250 mls/hr 10/23/24 15:26 Lactated Ringer's IV 11/22/24 15:25 .Q4H3M PRN K LEVEL 3.3 TO 5.3mM/L Potassium Chloride 40 meq/ 1,020 mls @ 250 mls/hr 10/23/24 15:26 Lactated Ringer's IV 11/22/24 15:25 .Q4H5M PRN K LEVEL < 3.3 mM/L Potassium Chloride 40 meq/ 1,020 mls @ 250 mls/hr 10/23/24 15:26 Dextrose/Lactated Ringer's IV 11/22/24 15:25 .Q4H5M PRN K LEVEL < 3.3mM/L Potassium Chloride 10 meq in 100 mls @ 50 mls/hr 10/23/24 15:26 10/24/24 04:01 Kcl Ivpb IV 11/22/24 15:25 50 mls/hr PRN PRN Administration K LEVEL 3.3 to 5.3 & BG > 200 Potassium Phosphate 15 mmol in 250 mls @ 62.5 mls/hr 10/23/24 15:26 Pot Phos 15 Mmol In Ns 250 Ml IV 11/22/24 15:25 PRN PRN Phosphate <= 1mg/dL Sodium Phosphate 15 mmol/ 255 mls @ 62.5 mls/hr 10/23/24 15:26 Sodium Chloride IV 11/22/24 15:25 .Q4H5M PRN Phosphate <= 1mg/dL and K> than 5.3 Potassium Chloride 20 meq/ 1,010 mls @ 250 mls/hr 10/23/24 15:39 10/24/24 16:00 Dextrose/Lactated Ringer's IV 11/22/24 15:38 Infused .Q4H3M PRN Infusion K LEVEL 3.3 TO 5.3 mM/L Ondansetron HCl 4 mg 10/23/24 16:06 10/23/24 21:29 Ondansetron Inj 2 Mg/Ml Inj 2 Ml IVP 11/22/24 16:05 4 mg Q6HR PRN Administration NAUSEA OR VOMITING Protocol Pantoprazole Sodium 40 mg 10/24/24 09:00 10/24/24 09:52 Pantoprazole Inj 40 Mg Vial IVP 11/23/24 08:59 40 mg QDAY LATONYA Administration Sodium Bicarbonate 50 ml 10/23/24 15:26 Sodium Bicarb Inj 8.4% Syr 50 Ml Syringe IV 11/22/24 15:25 Q4HR PRN For ph <= to 7.0 Plan Yony Burciaga is a 39M pmhx significant for type I DM with frequent episodes of DKA due to insulin nonadherence presented to [facility] ED on 10/23 with DKA, initially admitted to ICU team for DKA management, now downgraded to floors on 10/24 for further management. #Diabetic ketoacidosis, resolved #Insulin-dependent type 1 diabetes mellitus, A1c 10.4 #Elevated beta hydroxybutyrate #Elevated lactate Patient reports being nonadherent to Tresiba 80 units for the past 6 days with a history of admissions for DKA. Denies any mealtime insulin. Admission glucose 477, bicarb of <10, K 5.8, beta hydroxybutyrate 6.3 with ABG showing pH 7.01 pCO2 9 and bicarb 2, admitted to ICU for management. Per chart review, patient was given insulin ggt ~120-140 units/day. s/p degludec 40 units prior to ICU transition Lactate initially elevated 4.6, downtrended to 1.8, now uptrending, likely secondary to DKA. Plan: - Plan to manage p.m. glucose with IV insulin and SSI, following tonight ACHS glucose reading and if high, consider starting every 4 glucose checks and sliding scale accordingly - Start IVF LR 500cc at 125 cc/hr - Plan to start degludec 80 units tomorrow in the a.m. - Lispro 10 units ACHS - SSI in place, if glucose continues to be uncontrolled increase to step 3 - F/u repeat lactate #Leukocytosis Admission leukocyte 9.7 however increased to 29.9. Currently slightly downtrending 25.5. Likely reactive as no signs of current infections as BCx NGTD, UA negative for infection and CXR negative for acute processes. Patient is not forthcoming of whether he uses IV drug use and that he only smokes. Lactate now uptrending. Plan: - CTM for signs of infection, increasing WBC, fever, SIRS - Consider echocardiogram concerning for active infection iso of drug use #Methamphetamine dependence #Opiate dependence #Fentanyl dependence Admission UDS + for methamphetamine, opiate and fentanyl. Patient reports that he smokes methamphetamine and is nonforthcoming regarding fentanyl and opiate use. Denies IV drug use. Plan: - central services tech consulted - Extensively educated regarding drug use cessation #Electrolyte imbalances #Hypokalemia #Hypomagnesemia, resolved #Hypophostatemia, resolving K 3.2 at time of downgrade and was repleted. Plan: - CTM electrolytes - Recheck and replete as necessary #Acute metabolic encephalopathy, resolved #Respiratory alkalosis, resolved #HAGMA 2/2 DKA, resolved #NENITA prerenal, resolved Hospital management: Lines: peripheral IV Diet: carb consistent low Bowel: none GI prophylaxis: IV pantoprazole 40 mg QD DVT prophylaxis: lovenox 40 mg QD Disposition: tele for futher management of DKA CODE STATUS: Full code Plan of care discussed with attending Dr. Du, and PGY-2 Dr. Dobbs. Sona Shi, DO PGY-1 Internal Medicine Attending Provider Attestation/Addendum I Elvin Du MD reviewed the note and agree with the resident's assessment & plan with modifications/additions/exceptions as below. I have personally reviewed labs, imaging, home meds/prior records, examined the patient, formulated and discussed management plan with the IM team. 39-year-old male with history of type 1 diabetes mellitus, polysubstance use ran out of his insulin and has not been taking any insulin for past 1 week presented and admitted with DKA. Patient had been in ICU with subsequent closure of anion gap and is being downgraded to MedSur floor. Discontinue insulin drip, switch to basal and preprandial insulin, will do infectious workup for significantly elevated leukocytosis of undetermined etiology, aggressive electrolyte replacement. Continue IV hydration.
[2024-10-24] MEDS: INSULIN LISPRO (AdmeLOG) 1 UNIT/0.01 ML UNIT 10 UNIT SC ×2 (18:00→21:52)
[2024-10-24] MEDS: RINGERS LACTATED 1000 ML 1,000 ML 125 ML IV (18:00)
[2024-10-24] MEDS: INSULIN LISPRO (AdmeLOG) 1 UNIT/0.01 ML UNIT SC (18:01)
[2024-10-24 18:18] LABS: Lactate (Lactic Acid) 2.3 mMol/L (0.4-2.0)
--- NOTE | 2024-10-24 18:24 | PC.NURSE ---
Per Dr. Baptiste patient will be transitioned from DKA with gap of 14. Okay to check bedside BG QACHS
[2024-10-24 18:42] LABS: Albumin, Serum 3.3 gm/dL (3.5-5.0); Anion Gap 15 (7-16); BUN/Creatinine Ratio 9 Ratio (12-20); Blood Urea Nitrogen 6 mg/dL (9-23); Calcium 8.7 mg/dL (8.3-10.6); Calcium (Corrected) 9.3 mg/dL (8.5-10.1); Carbon Dioxide 21.9 mMol/L (20.0-31.0); Chloride 107 mMol/L (98-107); Creatinine (Component) 0.7 mg/dL (0.6-1.3); Estimated Creatinine Clearance 123.7 mL/min (>60); Glucose 223 mg/dL (74-106); Osmolality,Calculated 291 (275-295); Phosphorous 1.7 mg/dL (2.4-5.1); Potassium 3.2 mMol/L (3.4-5.1); Sodium 144 mMol/L (136-145); eGFR > 60 See Note
[2024-10-24 18:58] LABS: Reflex Lactate? Y
[2024-10-24] MEDS: POTASSIUM CHLORIDE 10% 20 MEQ/15 ML UDC 40 MEQ PO (19:38)
[2024-10-24 20:23] LABS: Lactate (Lactic Acid) 4.9 mMol/L (0.4-2.0)
--- NOTE | 2024-10-24 20:36 | PC.NURSE ---
Dr. Elkins notified via phone of critical lactic acid level of 4.9.
[2024-10-24 21:16] LABS: Reflex Lactate? Y
[2024-10-24] MEDS: SODIUM CHLORIDE 0.9% 1000 ML 1,000 ML 999 ML IV (21:21)
[2024-10-24] MEDS: POTASSIUM PHOS 15 MMOL in SODIUM CHLORIDE 0.9% 250 ML 245 ML 62.5 MMOL IV (21:35)
[2024-10-24 23:13] LABS: Reflex Lactate? Y
[2024-10-24 23:40] LABS: Lactate (Lactic Acid) 2.7 mMol/L (0.4-2.0)
[2024-10-25] VITALS: BP 140/64; PULSE 102; RESP 29; TEMP 36.7; O2SAT 98
[2024-10-25 00:09] LABS: Anion Gap 10 (7-16); BUN/Creatinine Ratio 7 Ratio (12-20); Blood Urea Nitrogen < 5 mg/dL (9-23); Calcium 9.1 mg/dL (8.3-10.6); Carbon Dioxide 25.7 mMol/L (20.0-31.0); Chloride 109 mMol/L (98-107); Creatinine (Component) 0.7 mg/dL (0.6-1.3); Estimated Creatinine Clearance 123.7 mL/min (>60); Glucose 90 mg/dL (74-106); Osmolality,Calculated 285 (275-295); Potassium 3.0 mMol/L (3.4-5.1); Sodium 145 mMol/L (136-145); eGFR > 60 See Note
[2024-10-25 02:38] LABS: Reflex Lactate? Y
[2024-10-25 03:13] LABS: Lactate (Lactic Acid) 1.0 mMol/L (0.4-2.0)
[2024-10-25 03:25] LABS: Basophils # (Auto) 0.0 Thou/mm3 (0.0-0.2); Basophils % (Auto) 0 % (0-2.5); Eosinophils # (Auto) 0.0 Thou/mm3 (0.0-0.5); Eosinophils % (Auto) 0 % (0-10); Hematocrit 40.0 % (41.0-53.0); Hemoglobin 14.1 g/dL (13.5-16.0); Immature Granulocytes Auto 0.06 Thou/mm3 (0.00-0.00); Lymphocytes # (Auto) 1.8 Thou/mm3 (1.0-4.8); Lymphocytes % (Auto) 10 % (10-50); Mean Corpuscular HGB Conc 35.3 g/dl (31.0-37.0); Mean Corpuscular Hemoglobin 27.9 pg (25.0-35.0); Mean Corpuscular Volume 79 fL (80-100); Monocytes # (Auto) 1.2 Thou/mm3 (0.0-0.8); Monocytes % (Auto) 7 % (0-12); Neutrophils # (Auto) 14.8 Thou/mm3 (1.8-7.7); Neutrophils % (Auto) 83 % (37-80); Nucleated Red Blood Cell # 0.00 Thou/mm3 (0.00-0.00); Nucleated Red Blood Cell % 0 /100 WBC (0); Platelet Count 244 Thou/mm3 (140-440); RDW Standard Deviation 37.8 fL (35.1-43.9); Red Blood Count 5.05 Miln/mm3 (4.50-5.90); White Blood Count 17.8 Thou/mm3 (3.8-10.6)
[2024-10-25 03:38] LABS: Alanine Aminotransferase 15 U/L (10-49); Albumin, Serum 3.4 gm/dL (3.5-5.0); Albumin/Globulin Ratio 1.9 (1.2-2.2); Alkaline Phosphatase 71 U/L (46-116); Anion Gap 13 (7-16); Aspartate Amino Transferase 17 U/L (0-34); BUN/Creatinine Ratio 8 Ratio (12-20); Bilirubin,Total 0.6 mg/dL (0.3-1.2); Blood Urea Nitrogen < 5 mg/dL (9-23); Calcium 8.7 mg/dL (8.3-10.6); Calcium (Corrected) 9.2 mg/dL (8.5-10.1); Carbon Dioxide 25.0 mMol/L (20.0-31.0); Chloride 108 mMol/L (98-107); Creatinine (Component) 0.6 mg/dL (0.6-1.3); Estimated Creatinine Clearance 144.3 mL/min (>60); Globulin 1.8 gm/dL (2.3-3.5); Osmolality,Calculated 284 (275-295); Potassium 2.8 mMol/L (3.4-5.1); Sodium 146 mMol/L (136-145); Total Protein 5.2 gm/dL (5.7-8.2); eGFR > 60 See Note
[2024-10-25 03:44] LABS: Glucose 47 mg/dL (74-106)
--- NOTE | 2024-10-25 03:48 | PC.NURSE ---
Critical lab reported from lab draw of glucose at 47. Patient is asymptomatic and was directed to drink an orange juice. Dr. Elkins was notified via phone. Sinan CORREA will recheck blood sugar in 10 minutes.
[2024-10-25 04:00] VITALS: BP 115/71; PULSE 89; RESP 29; TEMP 36.6; O2SAT 100
[2024-10-25 08:00] VITALS: BP 131/81; PULSE 62; PULSE 91; RESP 18; TEMP 37.3; O2SAT 98
[2024-10-25 08:27] VITALS: PULSE 79; RESP 100; RESP 20
[2024-10-25] MEDS: ENOXAPARIN SOD INJ 40 MG/0.4 ML SYRINGE SC (08:28)
[2024-10-25] MEDS: NAPH,KPH MBDB 1 PACKET (1.5 GM) 2 PACKET PO (08:30)
[2024-10-25] MEDS: INSULIN DEGLUDEC 5 UNIT/0.05 ML (PER 5 UNITS) 80 UNIT SC (08:31)
[2024-10-25] MEDS: INSULIN LISPRO (AdmeLOG) 1 UNIT/0.01 ML UNIT 10 UNIT SC ×2 (08:32→11:56)
[2024-10-25] MEDS: INSULIN LISPRO (AdmeLOG) 1 UNIT/0.01 ML UNIT SC ×2 (08:33→11:57)
[2024-10-25 09:26] LABS: Lactate (Lactic Acid) 1.8 mMol/L (0.4-2.0)
--- NOTE | 2024-10-25 11:06 | PC.SS ---
Yony Burciaga is a 39 year-old male admitted to [place] for DKA. SS conducted bedside contact with the patient to complete initial assessment and to discuss discharge planning. Role and reason explained. Patient confirmed demographic information. Patient lives with his girlfriend. Pt identifies his Uncle, Moo Randall [phone] as his surrogate decision maker. Pt states he is able to complete all ADL?s independently. No need for any source of DME, pt reports not having glucometer. Pts PCP is Benja. Pharmacy of choice is [facility]. Discharge options discussed and the pt wishes to return home.? Pt family will provide transport. No further intervention required at this time, social insurance analyst would be available to address any further concerns. DC Plan: Home Contact: Uncle Address: Confirmed on face sheet PCP: Benja
--- NOTE | 2024-10-25 11:57 | PC.NURSE ---
notified Dr Du pt is wanting to leave AMA. Per , They are rounding and will be by within 45 min. Pt okay with waiting
[2024-10-25 12:00] VITALS: BP 108/66; PULSE 79; RESP 16; TEMP 36.2; O2SAT 98
--- NOTE | 2024-10-25 12:04 | PC.NURSE ---
Pt no longer okay with waiting. He called a ride and IV was removed.
--- NOTE | 2024-10-25 12:10 | PC.NURSE ---
Pt left AMA. Education provided. Pt understands consequences and left on foot. Dr Du made aware. CN made aware
--- NOTE | 2024-10-25 15:07 | PD.ADDPROG ---
Addendum Progress Note Addendum Date of report being addended: 10/25/24 Narrative: I Elvin Du MD reviewed the note and agree with the resident's assessment & plan with modifications/additions/exceptions as below. I have personally reviewed labs, imaging, home meds/prior records, examined the patient, formulated and discussed management plan with the IM team. 39-year-old male with history of type 1 diabetes mellitus, polysubstance use ran out of his insulin and has not been taking any insulin for past 1 week presented and admitted with DKA. Patient had been in ICU with subsequent closure of anion gap and is being downgraded to MedSurg floor. Patient left AMA prior to being evaluated/examined. He was reportedly fully alert oriented and does have decision-making capacity
--- NOTE | 2024-10-25 15:33 | ESDS_ITS ---
<Statement entered by Elvin Du MD - 10/26/24 12:48> I Elvin Du MD reviewed the note and agree with the resident's assessment & plan with modifications/additions/exceptions as below. I have personally reviewed labs, imaging, home meds/prior records, examined the patient, formulated and discussed management plan with the IM team. <Statement entered by Tricia Du MD - 10/25/24 19:36> Patient left AMA with being seen or examined by the hospitalist team. ------- Plan of care was discussed with the attending, Dr. Florian Du, PGY-2 Planned Discharge Date 10/25/24 DS: Providers Provider Date of admission: 10/23/24 17:26 Primary care physician: Daphne Yousif PA-C Admitting Provider: Kimberlyn Benson MD Attending Provider on Admission: Nubia Benson MD Consults: 10/23/24 15:30 Referral Registered Dietitian Routine Comment: Attending Provider on DC: Elvin Du MD Discharging Provider: Elvin Du MD DS: Diagnosis Problem List Completed Was Problem List Reviewed/Reconciled?: Yes Hospital Course Hospital Course Hospital course: Summary: Yony Burciaga is a 39M pmhx significant for type I DM with frequent episodes of DKA due to insulin nonadherence and polysubstance use including opiates, fentanyl and amphetamine presented to [facility] ED on 10/23 with DKA, initially admitted to ICU team for DKA management on insulin drip. Patient states he has been out of Tresiba for a week prior to admission, reports taking 80 units in the morning only. Eventually, he was transitioned off to subcutaneous insulin and downgraded to floors afternoon of 10/24 for further insulin management. However, morning of 10/25, the patient decided to leave against medical advice because his ride was here and patient has normal mental status and adequate capacity to make medical decisions. The patient refuses hospital admission and wants to be discharged. Patient left AMA prior being seen by hospitalist team. Discharge Recommendations: - Please take all medications as prescribed - Refrain from further recreational illicit drug use - Please follow up with your PCP within one week of discharge - If your symptoms worsen, please seek immediate medical attention and return to your nearest emergency room. - If you do not have a PCP, you may follow up at the [facility] at [address], [facility] [address], Hospital Diagnoses: #Diabetic ketoacidosis, resolved #Insulin-dependent type 1 diabetes mellitus, A1c 10.4 #Elevated beta hydroxybutyrate #Elevated lactate #Leukocytosis #Methamphetamine dependence #Opiate dependence #Fentanyl dependence #Electrolyte imbalances #Hypokalemia #Hypomagnesemia, resolved #Hypophostatemia, resolving #Acute metabolic encephalopathy, resolved #Respiratory alkalosis, resolved #HAGMA 2/2 DKA, resolved #NENITA prerenal, resolved Sona Shi, DO Internal Medicine, PGY-1 Time Spent with Patient Time attestation: Total time spent providing and/or coordinating discharge services: Time spent: Less than 30 minutes Exam Vital Signs Temp Pulse Resp BP Pulse Ox O2 Del Method 97.2 F 79 16 108/66 98 Room Air 10/25/24 12:00 10/25/24 12:00 10/25/24 12:00 10/25/24 12:00 10/25/24 12:10/25/24 12:00 Narrative Exam GENERAL: AOx3, no acute distress, lethargic, appears older than stated age HEENT: NC/AT, mucous membranes dry, bilateral sclera anicteric CARDIOVASCULAR: regular rate and rhythm, S1/S2 present, no murmurs appreciated PULMONARY: clear to auscultation bilaterally, no rales/rhonchi/wheezes ABDOMINAL: soft, non-tender, non-distended, no rebound/guarding, bowel sounds present EXTREMITIES: no peripheral edema SKIN: warm and dry, intact, no rashes NEURO: CN II-XII grossly intact, no focal deficits, alert, following commands Discharge Plan Plan Patient Disposition: Left Against Medical Advice Prescriptions/Referrals Prescriptions/Med Rec: No Action insulin degludec [Tresiba FlexTouch U-100] 100 unit/mL (3 mL) Insulin Pen 90 unit subcut QAM Rx Instructions: AFTER BREAKFAST insulin lispro [Admelog SoloStar U-100 Insulin] 100 unit/mL insulin pen 20 unit SUBCUT TID Patient Comments: INJECT 20 UNITS SUBCUTANEOUSLY 3 TIMES A DAY 15MIN BEFORE EACH MEAL DIRECTED BY ([facility] [place]) Flores Mabry 14 Day [facility] [place] Patient Comments: CHECK BLOOD SUGAR 4 TIMES A DAY Rx Instructions: CHECK BLOOD SUGAR FOUR TIMES A DAY Referrals: Daphne Yousif PA-C [Primary Care Provider] - Patient/Caregiver Discharge Instructions Print Language: Lao Quality Discharge Quality Measures VTE prophylaxis
== END 2024-10-25 12:10 | disposition left against medical advice (07) | DRG 420 ==
LOC: SERX 12:50 → SERHOLD 19:03 → S2SX 20:04 → S3SX 10-24 19:48
PROVIDERS: Student in an Organized Health Care Education/Training Program; Admitting Provider Family Medicine; Emergency Provider Family Medicine; PCP Physician Assistant; Visit Provider Internal Medicine
DX: E10.10 Type 1 diabetes mellitus with ketoacidosis without coma (principal); N17.9 Acute kidney failure, unspecified; F15.20 Other stimulant dependence, uncomplicated; F11.20 Opioid dependence, uncomplicated; E87.3 Alkalosis; E83.42 Hypomagnesemia; E86.1 Hypovolemia; E87.1 Hypo-osmolality and hyponatremia; E87.5 Hyperkalemia; E87.6 Hypokalemia; E87.8 Other disorders of electrolyte and fluid balance, not elsewhere classified; F17.210 Nicotine dependence, cigarettes, uncomplicated; G93.41 Metabolic encephalopathy; Z53.29 Procedure and treatment not carried out because of patient's decision for other reasons; Z91.148 Patient's other noncompliance with medication regimen for other reason
CPT/HCPCS: 36415; 36600; 71045; 80048; 80053; 80069; 80307; 81001; 82010; 82436; 82803; 83036; 83605; 83690; 83735; 84100; 84132; 84133; 84145; 84300; 85025; 87040; 87081; 93005; 93225; 96361; 96365; 96366; 96375; 99284; J1650; J1815; J2405; J2470; J3475; J3480; J7030; J7050; J7060; J7120; J7121; A9270

== ENCOUNTER 2024-12-04 17:15 | Inpatient (IN) | payer MEDICAID, SELFPAY ==
[2024-12-04 17:51] VITALS: BP 119/76; PULSE 104; RESP 18; TEMP 36.4; O2SAT 98; BMI 24.3
--- NOTE | 2024-12-04 17:53 | PD.EDRME ---
Rapid Medical Screening Exam E Arrival date/time: 12/04/24 17:15 39-year-old male with a history of type 1 diabetes presents to the emergency room with a chief complaint of an elevated blood sugar. Patient states he has been without insulin for the last 3 days and when he went to his primary care provider his glucometer read high. I have greeted and performed a focused initial assessment of this patient. A comprehensive ED assessment and evaluation of the patient, analysis of all test results, and completion of the medical decision making process will be conducted by additional ED providers. Chief Complaint: Recheck/Abnormal Lab/Rx Vital signs reviewed by provider: Yes
[2024-12-04 18:23] LABS: Base Excess, Venous -7 (-3-3); O2 Saturation, Venous 55 % (96-97); PCO2, Venous 38 mmHg (36-56); PO2, Venous 27 mmHg (15-58); pH, Venous 7.30 (7.33-7.66)
[2024-12-04 18:26] LABS: Basophils # (Auto) 0.1 Thou/mm3 (0.0-0.2); Basophils % (Auto) 1 % (0-2.5); Eosinophils # (Auto) 0.0 Thou/mm3 (0.0-0.5); Eosinophils % (Auto) 1 % (0-10); Hematocrit 48.5 % (41.0-53.0); Hemoglobin 16.9 g/dL (13.5-16.0); Immature Granulocytes Auto 0.02 Thou/mm3 (0.00-0.00); Lymphocytes # (Auto) 1.9 Thou/mm3 (1.0-4.8); Lymphocytes % (Auto) 29 % (10-50); Mean Corpuscular HGB Conc 34.8 g/dl (31.0-37.0); Mean Corpuscular Hemoglobin 28.2 pg (25.0-35.0); Mean Corpuscular Volume 81 fL (80-100); Monocytes # (Auto) 0.3 Thou/mm3 (0.0-0.8); Monocytes % (Auto) 4 % (0-12); Neutrophils # (Auto) 4.4 Thou/mm3 (1.8-7.7); Neutrophils % (Auto) 66 % (37-80); Nucleated Red Blood Cell # 0.00 Thou/mm3 (0.00-0.00); Nucleated Red Blood Cell % 0 /100 WBC (0); RDW Standard Deviation 35.8 fL (35.1-43.9); Red Blood Count 5.99 Miln/mm3 (4.50-5.90); White Blood Count 6.6 Thou/mm3 (3.8-10.6)
[2024-12-04 18:27] LABS: Beta Hydroxybutyrate 6.4 mmol/L (<0.6)
[2024-12-04 19:30] LABS: Basophils # (Auto) 0.1 Thou/mm3 (0.0-0.2); Basophils % (Auto) 1 % (0-2.5); Eosinophils # (Auto) 0.1 Thou/mm3 (0.0-0.5); Eosinophils % (Auto) 1 % (0-10); Hematocrit 48.1 % (41.0-53.0); Hemoglobin 16.8 g/dL (13.5-16.0); Immature Granulocytes Auto 0.03 Thou/mm3 (0.00-0.00); Lymphocytes # (Auto) 2.5 Thou/mm3 (1.0-4.8); Lymphocytes % (Auto) 27 % (10-50); Mean Corpuscular HGB Conc 34.9 g/dl (31.0-37.0); Mean Corpuscular Hemoglobin 28.5 pg (25.0-35.0); Mean Corpuscular Volume 82 fL (80-100); Monocytes # (Auto) 0.5 Thou/mm3 (0.0-0.8); Monocytes % (Auto) 5 % (0-12); Neutrophils # (Auto) 6.2 Thou/mm3 (1.8-7.7); Neutrophils % (Auto) 66 % (37-80); Nucleated Red Blood Cell # 0.00 Thou/mm3 (0.00-0.00); Nucleated Red Blood Cell % 0 /100 WBC (0); Platelet Count 298 Thou/mm3 (140-440); RDW Standard Deviation 36.1 fL (35.1-43.9); Red Blood Count 5.89 Miln/mm3 (4.50-5.90); White Blood Count 9.4 Thou/mm3 (3.8-10.6)
[2024-12-04 19:49] LABS: Alanine Aminotransferase 37 U/L (10-49); Albumin, Serum 4.9 gm/dL (3.5-5.0); Albumin/Globulin Ratio 1.8 (1.2-2.2); Alkaline Phosphatase 133 U/L (46-116); Anion Gap 19 (7-16); Aspartate Amino Transferase 27 U/L (0-34); BUN/Creatinine Ratio 9 Ratio (12-20); Bilirubin,Total 1.0 mg/dL (0.3-1.2); Blood Urea Nitrogen 13 mg/dL (9-23); Calcium 10.2 mg/dL (8.3-10.6); Calcium (Corrected) 10.2 mg/dL (8.5-10.1); Carbon Dioxide 19.1 mMol/L (20.0-31.0); Chloride 94 mMol/L (98-107); Creatinine (Component) 1.4 mg/dL (0.6-1.3); Estimated Creatinine Clearance 71.5 mL/min (>60); Globulin 2.8 gm/dL (2.3-3.5); Lipase 19 U/L (12-53); Osmolality,Calculated 283 (275-295); Potassium 5.2 mMol/L (3.4-5.1); Sodium 132 mMol/L (136-145); Total Protein 7.7 gm/dL (5.7-8.2); eGFR > 60 See Note
[2024-12-04 19:52] LABS: Glucose 445 mg/dL (74-106)
--- NOTE | 2024-12-04 20:23 | PD.EDRECHK ---
ED Recheck Abnl Lab Rx-RME/HPI General Chief Complaint: Recheck/Abnormal Lab/Rx Stated Complaint: BS high, sent by [facility] Time Seen by Provider: 12/04/24 18:35 Arrival date/time: 12/04/24 17:15 RME / HPI RME / HPI narrative: 39-year-old male with a history of type 1 diabetes presents to the emergency room with a chief complaint of an elevated blood sugar. Patient states he has been without insulin for the last 3-4 days and when he went to his primary care provider his glucometer read high. Patient complaining of generalized body weakness, not feeling well, severity moderate. Patient denies any vomiting diarrhea fever or other complaints. Patient admits of smoking heroin this morning. Related Data Home Medications ?Medication ?Instructions ?Recorded ?Confirmed insulin degludec 100 unit/mL (3 90 unit subcut QAM 10/16/18 10/24/24 mL) subcutaneous pen (Tresiba FlexTouch U-100 insulin) flash glucose scanning reader 06/21/21 10/24/24 (FreeStyle Raghavendra 14 Day [place]) insulin lispro 100 unit/mL 20 unit subcut TID 06/21/21 10/24/24 subcutaneous pen (Admelog SoloStar U-100 Insulin lispro) Allergies Allergy/AdvReac Type Severity Reaction Status Date / Time No Known Allergies Allergy Verified 12/04/24 17:19 Review of Systems Review of Systems Narrative Review of Systems: Review of system reviewed and within normal limits except mentioned in HPI ED Exam Narrative Physical exam: VITAL SIGNS: Reviewed. GENERAL APPEARANCE: Alert and interactive, follows commands, no acute distress, HEAD AND FACE: Non-traumatic. ENT: PERRL, pink conjunctivitis, eyelid no trauma, Mucous membrane dry NECK: Supple, nontender, no nuchal rigidity. CHEST: No tenderness, no crepitus, no paradoxical movement, no retractions. LUNGS: Clear, well ventilated, symmetric, no rales, no wheezing, no ronchi, no stridor, good breath sounds bilaterally. HEART: Regular rate, regular rhythm, no murmur, no gallops. ABDOMEN: Soft, positive bowel sounds, nondistended, no guarding, nontender, no rebound, no masses, RECTAL: Deferred. GENITAL: Deferred. NEUROLOGICAL: Gross motor function intact sensory function intact, Appropriate for age. MUSCULOSKELETAL: low back nontender, full range of motion. EXTREMITIES: Nontender, full range of motion. SKIN: Color pink, dry, no rash, no lacerations, no abrasions, no contusions. LYMPHATICS: Deferred. Course Quality Measures none Orders Category Date Time Status Admit to Inpatient Status Routine Admission 12/04/24 21:53 Active Patient Condition Routine Admission 12/04/24 21:53 Ordered Bedside Blood Glucose Q1H Care 12/04/24 21:51 Active COVID-19 Screening Questionnaire NOW Care 12/04/24 20:55 Active Senior Publications Specialist Q4H Care 12/04/24 21:51 Active DKA Protocol QSHIFT Care 12/04/24 21:51 Active Decision to Admit X1 Care 12/04/24 20:55 Completed EKG (ED ONLY) *Do not use* NOW Care 12/04/24 21:14 Active Fingerstick [Bedside Blood Glucose] NOW Care 12/04/24 17:53 Active Insert IV NOW Care 12/04/24 20:23 Active Intake and Output Q1H Care 12/04/24 22:00 Ordered Intake and Output Q1H Care 12/04/24 23:00 Ordered Notify provider NEEDED Care 12/04/24 21:51 Active Referral Registered Dietitian Routine Cons 12/04/24 21:51 Active EKG (ED Only) Stat Exams 12/04/24 21:14 Draft XR chest 1V Stat Exams 12/04/24 21:14 Completed Beta Hydroxybutyrate Stat Lab 12/04/24 18:17 Completed CBC AM DRAW Lab 12/05/24 05:00 Ordered CBC AM DRAW Lab 12/06/24 05:00 Ordered CBC Stat Lab 12/04/24 18:17 Completed CBC Stat Lab 12/04/24 19:16 Completed CMP [Comprehensive Metabolic Panel] Stat Lab 12/04/24 18:17 Completed Lipase Stat Lab 12/04/24 18:17 Completed Magnesium Q4H Lab 12/05/24 02:00 Ordered Magnesium Q4H Lab 12/05/24 06:00 Ordered Magnesium Q4H Lab 12/05/24 10:00 Ordered Magnesium Q4H Lab 12/05/24 14:00 Ordered Magnesium Q4H Lab 12/05/24 18:00 Ordered Magnesium Q4H Lab 12/05/24 22:00 Ordered Magnesium Q4H Lab 12/06/24 02:00 Ordered Magnesium Q4H Lab 12/06/24 06:00 Ordered Magnesium Q4H Lab 12/06/24 10:00 Ordered Magnesium Q4H Lab 12/06/24 14:00 Ordered Magnesium Q4H Lab 12/06/24 18:00 Ordered Magnesium Q4H Lab 12/06/24 22:00 Ordered Phosphorous Q4H Lab 12/05/24 02:00 Ordered Phosphorous Q4H Lab 12/05/24 06:00 Ordered Phosphorous Q4H Lab 12/05/24 10:00 Ordered Phosphorous Q4H Lab 12/05/24 14:00 Ordered Phosphorous Q4H Lab 12/05/24 18:00 Ordered Phosphorous Q4H Lab 12/05/24 22:00 Ordered Phosphorous Q4H Lab 12/06/24 02:00 Ordered Phosphorous Q4H Lab 12/06/24 06:00 Ordered Phosphorous Q4H Lab 12/06/24 10:00 Ordered Phosphorous Q4H Lab 12/06/24 14:00 Ordered Phosphorous Q4 Lab 12/06/24 18:00 Ordered Phosphorous Q4 Lab 12/06/24 22:00 Ordered Renal Function Panel Q4 Lab 12/05/24 02:00 Ordered Renal Function Panel Q4 Lab 12/05/24 06:00 Ordered Renal Function Panel Q4 Lab 12/05/24 10:00 Ordered Renal Function Panel Q4 Lab 12/05/24 14:00 Ordered Renal Function Panel Q4 Lab 12/05/24 18:00 Ordered Renal Function Panel Q4 Lab 12/05/24 22:00 Ordered Renal Function Panel Q4 Lab 12/06/24 02:00 Ordered Renal Function Panel Q4 Lab 12/06/24 06:00 Ordered Renal Function Panel Q4 Lab 12/06/24 10:00 Ordered Renal Function Panel Q4 Lab 12/06/24 14:00 Ordered Renal Function Panel Q4 Lab 12/06/24 18:00 Ordered Renal Function Panel Q4 Lab 12/06/24 22:00 Ordered UA [Urinalysis] Stat Lab 12/04/24 20:10 Completed Urine Culture Stat Lab 12/04/24 20:10 Received Venous Blood Gas Stat Lab 12/04/24 18:17 Completed Acetaminophen Supp [Tylenol Supp] Med 12/04/24 21:50 Active 650 mg MT Q4HR PRN Acetaminophen Tab [Tylenol Tab] Med 12/04/24 21:50 Active 650 mg PO Q4HR PRN Dextrose 5%-Lactated Ringers [D5-Lr] 1,000 ml Med 12/04/24 21:50 Active Pot Chl Additive [KCl Additive] 40 meq IV 250 mls/hr Dextrose 5%-Lactated Ringers [D5-Lr] 1,000 ml Med 12/04/24 21:50 Active IV 250 mls/hr Dextrose 50% Syr [D50w Syringe Abboject] Med 12/04/24 21:50 Active 25 ml IV PRNMRX1 PRN Heparin Inj Med 12/04/24 22:00 Active 5,000 unit SC Q8HR Insulin Reg 100 Units/100 ml [Myxredlin] Med 12/04/24 20:23 Active 100 unit in 100 ml IV 0.1 unit/kg/hr KCL 20 mEq/L in D5-LR Med 12/04/24 21:50 Active 20 meq in 1,000 ml IV 250 mls/hr Magnesium Sulfate 2 GM Ivpb [Magnesium Sulfate Ivpb] Med 12/04/24 21:50 Active 2 gm in 50 ml IV 25 mls/hr Milk Of Magnesia Susp [Mom Susp] Med 12/04/24 21:50 Active 30 ml PO QDAY PRN POT PHOS 15 mMol in NS 250 ML [Pot Phos 15 mMol in NS Med 12/04/24 21:50 Active 250 ml] 15 mmol in 250 ml IV PRN POTASSIUM CHL 10 mEq IVPB [Kcl Ivpb] [facility] 12/04/24 21:50 Active 10 meq in 100 ml IV 100 mls/hr POTASSIUM CHL 10 mEq IVPB [Kcl Ivpb] [facility] 12/04/24 21:50 Active 10 meq in 100 ml IV PRN Ringers Lactated 1000 ml [Lactated Ringers] 1,000 ml [facility] 12/04/24 21:50 Active Pot Chl Additive [KCl Additive] 20 meq IV 250 mls/hr Ringers Lactated 1000 ml [Lactated Ringers] 1,000 ml [facility] 12/04/24 21:50 Active Pot Chl Additive [KCl Additive] 40 meq IV 250 mls/hr Ringers Lactated 1000 ml [Lactated Ringers] 1,000 ml Med 12/04/24 21:50 Active IV 250 mls/hr Ringers Lactated 1000 ml [Lactated Ringers] 1,000 ml Med 12/04/24 20:08 Discontinued IV 999 mls/hr Ringers Lactated 1000 ml [Lactated Ringers] 1,000 ml Med 12/04/24 20:08 Discontinued IV 999 mls/hr Sodium Bicarb 8.4% SYR Med 12/04/24 21:50 Active 50 ml IV Q4HR PRN Sodium Chloride 0.9% 250 ml [Ns] 250 ml Med 12/04/24 21:50 Active Sod Phos Additive [NaPhos Additive] 15 mmol IV 62.5 mls/hr mg Hyd/Al Hyd/Erick Susp [Maalox Susp] Med 12/04/24 21:50 Active 30 ml PO Q4HR PRN Code Status Routine Oth 12/04/24 21:50 Ordered Oxygen Delivery PRN RT 12/04/24 21:53 Active Vital Signs Vital signs: Vital Signs Temperature 97.6 F 12/04/24 17:51 Pulse Rate 104 H 12/04/24 17:51 Respiratory Rate 18 12/04/24 17:51 Blood Pressure 119/76 12/04/24 17:51 Pulse Oximetry (%) 98 12/04/24 17:51 Oxygen Delivery Method Room Air 12/04/24 17:51 Recheck / Abnormal Lab / Rx MDM Narrative MDM Narrative:: 39-year-old male with a history of type 1 diabetes presents to the emergency room with a chief complaint of an elevated blood sugar. Patient states he has been without insulin for the last 3-4 days and when he went to his primary care provider his glucometer read high. Patient complaining of generalized body weakness, not feeling well, severity moderate. Patient denies any vomiting diarrhea fever or other complaints. Patient admits of smoking heroin this morning. Patient patient's workup is significant for diabetic ketoacidosis, patient's pH was noted to be 7.30, sodium 132 potassium 5.2, chloride 94 carbon oxide of 19.1 anion gap of 19 creatinine 1.4 patient's blood sugar 445 acetone of 6.4 urinalysis no UTI Patient was started on 2 L IV fluid LR, and was also started on insulin drip Spoke with the patient regarding plan of care who agrees to be admitted to ICU. Spoke with hospitalist who admitted the patient. Patient data External records reviewed:: None Clinical information provided by:: patient Social determinants that could affect healthcare access:: none Patient has the following chronic illnesses:: Diabetes mellitus, heroin abuse How is presenting disease/condition affected by chronic disease/condition?: exacerbated by Evaluation data The following diagnostics were reviewed and interpreted by me:: lab results and radiology exam(s) Lab and/or radiology exams considered but not ordered:: None Interpretation Summary: See MDM EKG showed normal sinus rhythm, ventricular rate of 95 bpm, no ST segment elevation or depression noted., As read by me. Chest x-ray showed no acute pathology noted. Medications / Prescriptions Medications or Prescriptions considered but not ordered:: None Medication administrations:: Medication Administration History Acetaminophen (Acetaminophen 325 Mg Tablet) 650 mg PO Q4HR PRN PRN Reason: PAIN SCALE 1-3 (mild Stop: 01/03/25 21:49 Acetaminophen (Acetaminophen Supp 650 Mg Supp) 650 mg MT Q4HR PRN PRN Reason: PAIN SCALE 1-3 (mild Stop: 01/03/25 21:49 Al Hydrox/Mg Hydrox/Simethicone (Mg Hyd/Al Hyd/Erick (Maalox Reg) Susp 30 Ml Udc) 30 ml PO Q4HR PRN PRN Reason: Heartburn or Upset Stomach Stop: 01/03/25 21:49 Dextrose (Dextrose 50%-Water Inj 50 Ml Syringe) 25 ml IV PRNMRX1 PRN PRN Reason: Blood Sugar - Low Heparin Sodium (Porcine) (Heparin Sod Inj 5000 Unit/Ml Vial) 5,000 unit SC Q8HR [facility] Stop: 12/18/24 21:59 Insulin Human Regular (Myxredlin) 100 unit in 100 mls @ 7.459 mls/hr IV .[id number] PRN; Protocol PRN Reason: PER PROTOCOL Stop: 01/03/25 20:22 Last Titration: 12/04/24 22:27 Dose: 0.1 unit/kg/hr, 7.459 mls/hr Documented By: CHINMAY Co-signed By: MARCELO Admin: 12/04/24 21:19 Dose: 0.1 unit/kg/hr, 7.459 mls/hr Documented By: CHINMAY Co-signed By: Potassium Chloride (Kcl Ivpb) 10 meq in 100 mls @ 100 mls/hr IV .Q1H PRN PRN Reason: IF POTASSIUM LESS THAN 3.3 Stop: 01/03/25 21:49 Magnesium Sulfate (Magnesium Sulfate Ivpb) 2 gm in 50 mls @ 25 mls/hr IV .Q2H PRN PRN Reason: PER DKA PROTOCOL Stop: 01/03/25 21:49 Dextrose/Lactated Ringer's (D5-Lr) 1,000 mls @ 250 mls/hr IV .Q4H PRN PRN Reason: PER PROTOCOL Stop: 01/03/25 21:49 Lactated Ringer's (Lactated Ringers) 1,000 mls @ 250 mls/hr IV .Q4H PRN PRN Reason: PER PROTOCOL Stop: 12/05/24 21:49 Potassium Chloride 20 meq/ (Lactated Ringer's) 1,010 mls @ 250 mls/hr IV .Q4H3M PRN PRN Reason: K LEVEL 3.3 TO 5.3mM/L Stop: 01/03/25 21:49 Potassium Chloride 40 meq/ (Lactated Ringer's) 1,020 mls @ 250 mls/hr IV .Q4H5M PRN PRN Reason: K LEVEL < 3.3 mM/L Stop: 01/03/25 21:49 Potassium Chloride 40 meq/ (Dextrose/Lactated Ringer's) 1,020 mls @ 250 mls/hr IV .Q4H5M PRN PRN Reason: K LEVEL < 3.3mM/L Stop: 01/03/25 21:49 Potassium Cl/Dextrose/Lact Ringer's (Kcl 20 Meq/L In D5-Lr) 20 meq in 1,000 mls @ 250 mls/hr IV .Q4H PRN PRN Reason: K LEVEL 3.3 TO 5.3 mM/L Potassium Chloride (Kcl Ivpb) 10 meq in 100 mls @ 50 mls/hr IV PRN PRN PRN Reason: K LEVEL 3.3 to 5.3 & BG > 200 Stop: 01/03/25 21:49 Potassium Phosphate (Pot Phos 15 Mmol In Ns 250 Ml) 15 mmol in 250 mls @ 62.5 mls/hr IV PRN PRN PRN Reason: Phosphate <= 1mg/dL Stop: 01/03/25 21:49 Sodium Phosphate 15 mmol/ (Sodium Chloride) 255 mls @ 62.5 mls/hr IV .Q4H5M PRN PRN Reason: Phosphate <= 1mg/dL and K> than 5.3 Stop: 01/03/25 21:49 Magnesium Hydroxide (Milk Of Magnesia Susp 30 Ml Udc) 30 ml PO QDAY PRN PRN Reason: CONSTIPATION Stop: 01/03/25 21:49 Sodium Bicarbonate (Sodium Bicarb Inj 8.4% Syr 50 Ml Syringe) 50 ml IV Q4HR PRN PRN Reason: For ph <= to 7.0 Stop: 01/03/25 21:49 Discontinued Medications Lactated Ringer's (Lactated Ringers) 1,000 mls @ 999 mls/hr IV .Q1H1M ONE Stop: 12/04/24 21:08 Last Admin: 12/04/24 20:37 Dose: 999 mls/hr Documented By: BD Lactated Ringer's (Lactated Ringers) 1,000 mls @ 999 mls/hr IV .Q1H1M ONE Stop: 12/04/24 21:08 Last Admin: 12/04/24 20:37 Dose: 999 mls/hr Documented By: BD 2 L IV LR, and started on insulin drip Consultations Consultation(s) initiated? (list below): No Diagnosis Recheck Differential Diagnosis: other (Hyperglycemia, DKA, dehydration) Most likely diagnosis given after review of the tests above:: DKA Admission Indicated Admission indicated?: indicated Admission Request Was there a request for admission?: Yes Admission Attestation Admission request attestation: Discussed case with [ Dr Jerez] from Hospitalist service regarding admission. Discussed patients ED course, exam findings, labs, and radiology results. The Hospitalist [agrees to accept the patient for admission. Disposition Plan Disposition Plan: Admit Critical Care Time Critical Care Time Critical Care Time: Yes Total Critical Care Time (min.): 45 Attestation: Critical Care Time The very real possibility of a deterioration of this patient's condition required the highest level of my preparedness for sudden, emergent intervention for the following systems: Cardiac and Metabolic. I provided critical care services, which included medication orders, frequent re-evaluations of the patient's condition and response to treatment, ordering and reviewing test results, and discussing the case with various consultants including: nursing staff, hospitalist, and more. The critical care time associated with the care of this patient was 45 minutes. Discharge Plan Plan Patient Disposition: Admit Acute Care w/in Hospital Discharge Disposition comment: guarded Problem List Clinical Impression: DKA (diabetic ketoacidosis), Heroin abuse, Poor compliance with medication
[2024-12-04 20:27] LABS: Collection Type, Urine Clean Catch; RBC,Urine 0 /hpf (0-3); Squamous Epithelial Cell,Urine 0 /hpf (0-5); WBC,Urine 0 /hpf (0-5)
[2024-12-04] MEDS: RINGERS LACTATED 1000 ML 1,000 ML 999 ML IV ×2 (20:37)
[2024-12-04 20:39] LABS: Bilirubin,Urine Negative (Negative); Blood,Urine Negative (Negative); Clarity,Urine Clear (Clear/Hazy); Color,Urine Lt-Yellow (Lt Yel-Yel); Glucose, Urine 4+ (Negative); Ketones,Urine 4+ (Negative); Leukocyte Esterase,Urine Negative (Negative); Nitrite,Urine Negative (Negative); PH,Urine 5.5 (5.0-7.0); Protein,Urine Negative (Neg - Trace); Specific Gravity,Urine 1.036 (1.001-1.035); Urobilinogen,Urine Negative mg/dL (0.0-1.0)
--- NOTE | 2024-12-04 21:14 | EKG_ITS ---
[facility] Test Date: 2024-12-04 Pat Name: CIPRIANO BUENO Department: Room: - Gender: Male [employer] Supervisor: : 1985 Requested By: Josefa Negron Order Number: [id number] Reading MD: Josefa Negron Measurements Intervals [place] Rate: 95 P: 72 AR: 153 QRS: 66 QRSD: 89 T: 50 QT: 342 QTc: 430 Interpretive Statements SINUS RHYTHM NONSPECIFIC T-WAVE ABNORMALITY Compared to ECG 10/22/2024 15:31:22 No significant changes /store/S0/[id number]/[id number].pdf
--- NOTE | 2024-12-04 21:14 | XR_ITS ---
Examination: AP chest single view Technique: AP portable upright chest single view Date and time: December 04, 2024, 2120 hrs., Comparison October 23, 2024 Indications: Shortness of breath today. Findings: Normal heart size. Lungs are clear. The osseous structures are intact Impression: No active disease.
[2024-12-04] MEDS: INSULIN REG 100 UNITS/100 ML 100 UNIT/100 ML BAG 7.459 UNIT IV (21:19)
[2024-12-04 21:24] VITALS: BP 118/82; PULSE 103; RESP 19; O2SAT 100
--- NOTE | 2024-12-04 21:55 | PD.HHHP ---
Documentation for date of: 12/04/24 HPI - Hospitalist History of Present Illness History of Present Illness: Nausea/ vomiting History of present illness: 39-year-old male with significant past medical history of type 1 diabetes mellitus, polysubstance abuse, recurrent episodes of DKA last episode around 1 month earlier presented to ED with complaint of elevated blood glucose reading at his primary care physician's office and nausea, patient reports running out of his long-acting/mealtime insulin a few days ago, denies any shortness of breath, chest pain, fever, chills, abdominal pain or urinary symptoms. Patient reports fentanyl use on the morning of admission along with meth. At ED patient's vitals were only noted for HR 115, labs showed normal CBC, CMP was noted for sodium of 132, potassium 5.2, bicarb 19.1, anion gap 19, creatinine of 1.4, glucose of 445, and beta hydroxybutyrate of 6.4. VBG was noted for pH 7.3 with pCO2 38. EKG was noted for sinus tachycardia with no other changes/CXR was within normal limits. At ED patient was started on insulin drip after he was given 2L of LR bolus, patient was admitted to ICU for management of DKA and NENITA. Review of Systems Review of Systems Systems Reviewed: All systems reviewed, normal except as documented Past Medical History Past Medical History NEUROLOGIC: Negative Neurological Disorders CARDIAC: Negative Cardiac Disorders GASTROINTESTINAL: Negative Gastrointestinal Disorders GENITOURINARY: Negative Genitourinary Disorders or Renal Disease ENDOCRINE: Positive Diabetes Mellitus Type 1 HEMATOLOGIC: Negative Blood Disorders Surgical History SURGICAL: Positive Nose Surgery Social History SMOKING STATUS: Current every day smoker (15 years) SECOND HAND EXPOSURE: No SUBSTANCE USE: heroin, opiates and methamphetamine LIVES WITH: Family (Uncle) Meds Home Medications and Allergies Home Medications ?Medication ?Instructions ?Recorded ?Confirmed ?Type insulin degludec 100 unit/mL (3 90 unit subcut QAM 10/16/18 12/05/24 History mL) subcutaneous pen (Tresiba FlexTouch U-100 insulin) flash glucose scanning reader 06/21/21 12/05/24 History (FreeStyle Raghavendra 14 Day [place]) insulin lispro 100 unit/mL 20 unit subcut TID 06/21/21 12/05/24 History subcutaneous pen (Admelog SoloStar U-100 Insulin lispro) Allergies Allergy/AdvReac Type Severity Reaction Status Date / Time No Known Allergies Allergy Verified 12/04/24 17:19 Exam Vital Signs Temp Pulse Resp BP Pulse Ox O2 Del Method 97.6 F 103 H 19 118/82 100 Room Air 12/04/24 17:51 12/04/24 21:24 12/04/24 21:24 12/04/24 21:24 12/04/24 21:24 12/04/24 21:24 Narrative General: Ill-appearing but awake and conversational HEENT: Normocephalic, atraumatic, mucous membranes Dry. Heart: Sinus tachycardia, no murmurs. Lungs: Clear to auscultation with no wheezing or crackles.Chest deformity noted Kussmaul breathing pattern Abdomen: Soft, nondistended, nontender, positive bowel sounds. ?No guarding or rebound tenderness. Neurologic: Alert and oriented x3, no gross neurological deficit, and patient able to move all 4 extremities. Extremities: No edema. Skin: No rash or ecchymoses. Results - Hospitalist Labs Diagrams: 12/04/24 19:16 12/04/24 18:17 Labs: Short CBC 12/04/24 12/04/24 Range/Units 18:17 19:16 WBC 6.6 9.4 D (3.8-10.6) Thou/mm3 Hgb 16.9 H 16.8 H (13.5-16.0) g/dL Hct 48.5 48.1 (41.0-53.0) % Plt Count Not Performed. 298 D BMP 12/04/24 18:17 Sodium 132 L Potassium 5.2 H Chloride 94 L Carbon Dioxide 19.1 L BUN 13 Creatinine 1.4 H Glucose 445 H* Calcium 10.2 Liver Function 12/04/24 Range/Units 18:17 Total Bilirubin 1.0 (0.3-1.2) mg/dL AST 27 (0-34) U/L ALT 37 (10-49) U/L Alkaline Phosphatase 133 H (46-116) U/L Albumin 4.9 (3.5-5.0) gm/dL Urine 12/04/24 Range/Units 20:10 Urine Color Lt-Yellow (Lt Yel-Yel) Urine Clarity Clear (Clear/Hazy) Urine pH 5.5 (5.0-7.0) Ur Specific [place] 1.036 H (1.001-1.035) Urine Protein Negative (Neg - Trace) Urine Glucose (UA) 4+ A (Negative) ABG Interpretation ABG results: 12/04/24 18:17 VBG pH 7.30 L VBG pCO2 38 VBG pO2 27 VBG Base Excess -7 L Assessment & Plan -Hospitalist Additional Plan Additional Plan: 39-year-old male with significant past medical history of type 1 diabetes mellitus, polysubstance abuse, recurrent episodes of DKA last episode around 1 month earlier admitted to ICU for management of DKA and NENITA. At ED patient's IV access was hard to obtain and only had 1 PIV with insulin drip was running, multiple attempts to obtain blood work and second IV access were unsuccessful due to patient being a hard stick per nurses and being upset/uncooperative. Insulin drip was stopped immediately at time of evaluation as labs were not obtained since insulin drip was started 3 hours prior. ICU was contacted for assistance in peripheral IV access using ultrasound after which new IV was established and fluid was started. Neurology: #No active issues #Methamphetamine dependence #Opiate dependence #Fentanyl dependence Patient's urine tox screen positive for opiates, fentanyl and methamphetamine. Per chart review patient's UTOX has been positive for substances in the past -advisory services associate referral, will advise patient to refrain from drug use Cardiovascular system: #Sinus tachycardia In setting of DKA - Treat underlying DKA - Patient received 3L of IVF boluses - IV fluids per DKA protocol Respiratory: #No active issues GI: #Nausea Patient complained of nausea previously but resolved at the moment. ?Zofran as needed for nausea vomiting Renal: #Acute kidney injury Patient's creatinine on presentation 1.4, dry mucous membrane patient in DKA, likely NENITA is prerenal. - IV fluids per DKA protocol - Follow renal panel - Dose medications renally - Avoid nephrotoxic agents #Anion gap metabolic acidosis - Will treat underlying diabetic ketoacidosis - Follow-up repeat renal panel every 4 hours - Continue insulin and IV fluid #Hypovolemic hyponatremia #Hypochloremia Patient sodium on presentation 132 ?Patient was given 2 L LR bolus in the emergency department ?Follow renal panel #Hyperkalemia Patient's potassium on presentation 5.2, patient noted to be in DKA was given IV insulin in the emergency department. ? Continue IV fluids and insulin gtt. ? Trend potassium level and replete as needed Endocrine: #Diabetic ketoacidosis #Insulin-dependent type 1 diabetes mellitus #Elevated beta hydroxybutyrate Trigger: Likely noncompliance, per ED note from yesterday patient ran out of insulin, has been inconsistent with his insulin use for a week, history of multiple episodes of DKA in the past Per chart review patient has history of type 1 diabetes mellitus, though patient has been prescribed Janumet in the past Previous A1c on 10/1509.4 ?DKA protocol ?Insulin gtt. discontinued as labs were unobtainable at time. ?After successful blood draw labs noted for AG 14, and HCO3 21. ?Patient was given 80u Degludec -home dose- ?Insulin drip again discontinued as piv was infiltrated. ?Trend renal panel every 4 hours if patient allows ?IV fluids @150cc/hr Patient was seen in ED after medicine team was consulted for admission for DKA, patient was already given 2L of LR boluses and started on insulin drip by ED through same IV access as only 1 could be established due to patient's uncooperativeness and difficult IV access. Insulin drip was stopped immediately as no labs had been drawn for the past 4 hours and patient had no IV fluid running. Multiple attempts to obtain second IV access were unsuccessful, ICU team was contacted for assistance in establishing IV using USG. After gaining a second IV access and renal panel insulin drip was restarted but IV was infiltrated and insulin drip was held. Patient's renal panel showed closure of anion gap along with bicarb of 20, patient was given 80 units of subcutaneous degludec and bolusing 1L of LR and started maintenance LR at 150 cc/hr. Again will attempt to obtain second PIV and if unsuccessful will discuss possibility of placing central line with patient and ED physician for procedural assistance. Musculoskeletal: No active problems Infectious disease: #No active issues. Hospital Maintenance: Dispo: ICU DVT ppx: Heparin GI ppx: None Diet: N.p.o. IV lines: Peripheral IV Code status: Full code Dispo: ICU, DKA management/DKA After examination of the patient and review of the clinical data I feel that this patient needs admission to the hospital for further treatment/evaluation. TOTAL CC TIME: 60 MIN TOTAL TIME: 60 Minutes of direct medical management and planning of care. I Lisa Cates MD, attest that I was physically present for fernandes portions of evaluation, and examined patient, labs and imagings and plan of care were discussed with IM residents team, and I agree with the findings and plans documented above. Quality Measures Quality Measures VTE prophylaxis
[2024-12-04 22:22] VITALS: BP 128/84; PULSE 94; RESP 20; O2SAT 99
[2024-12-04 22:26] VITALS: PULSE 115; RESP 20; RESP 98
[2024-12-04 23:05] VITALS: BP 130/82; PULSE 92; PULSE 97; RESP 18; O2SAT 100
[2024-12-04] MEDS: HEPARIN SOD INJ 5000 UNIT/ML VIAL SC (23:57)
[2024-12-05] VITALS (12 sets, daily range): BP systolic 121–140; BP diastolic 78–85; PULSE 68–110; RESP 15–100; TEMP 36.3–36.7; O2SAT 98–100; BMI 24.3
--- NOTE | 2024-12-05 00:14 | PC.NURSE ---
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 PTS STILL DOES NOT HAVE A CHEMISTRY PANEL BLOOD CONTINUES TO HEMOLYZE
[2024-12-05 00:40] LABS: Amphetamine/Methamp Scrn,U Positive (Negative); Barbiturate Screen,Urine Negative (Negative); Benzodiazepines Screen,Urine Negative (Negative); Benzoylecgonine Screen, Ur Negative (Negative); Fentanyl Screen,Urine Positive (Negative); Opiate Screen,Urine Positive (Negative); THC Screen,Urine Negative (Negative)
[2024-12-05 01:30] LABS: Albumin, Serum 4.5 gm/dL (3.5-5.0); Anion Gap 14 (7-16); BUN/Creatinine Ratio 9 Ratio (12-20); Blood Urea Nitrogen 10 mg/dL (9-23); Calcium 9.7 mg/dL (8.3-10.6); Calcium (Corrected) 9.7 mg/dL (8.5-10.1); Carbon Dioxide 20.6 mMol/L (20.0-31.0); Chloride 100 mMol/L (98-107); Creatinine (Component) 1.1 mg/dL (0.6-1.3); Estimated Creatinine Clearance 91.1 mL/min (>60); Glucose 194 mg/dL (74-106); Magnesium 2.0 mg/dL (1.6-2.6); Osmolality,Calculated 274 (275-295); Phosphorous 2.8 mg/dL (2.4-5.1); Potassium 3.7 mMol/L (3.4-5.1); Sodium 135 mMol/L (136-145); eGFR > 60 See Note
[2024-12-05] MEDS: INSULIN DEGLUDEC 5 UNIT/0.05 ML (PER 5 UNITS) 80 UNIT SC ×2 (02:20→21:04)
[2024-12-05] MEDS: RINGERS LACTATED 1000 ML 1,000 ML 999 ML IV ×2 (02:25→08:00)
[2024-12-05] MEDS: RINGERS LACTATED 1000 ML 2,000 ML 150 ML IV (02:26)
[2024-12-05 05:11] LABS: Basophils # (Auto) 0.1 Thou/mm3 (0.0-0.2); Basophils % (Auto) 1 % (0-2.5); Eosinophils # (Auto) 0.1 Thou/mm3 (0.0-0.5); Eosinophils % (Auto) 1 % (0-10); Hematocrit 41.8 % (41.0-53.0); Hemoglobin 14.5 g/dL (13.5-16.0); Immature Granulocytes Auto 0.01 Thou/mm3 (0.00-0.00); Lymphocytes # (Auto) 2.1 Thou/mm3 (1.0-4.8); Lymphocytes % (Auto) 26 % (10-50); Mean Corpuscular HGB Conc 34.7 g/dl (31.0-37.0); Mean Corpuscular Hemoglobin 28.0 pg (25.0-35.0); Mean Corpuscular Volume 81 fL (80-100); Monocytes # (Auto) 0.5 Thou/mm3 (0.0-0.8); Monocytes % (Auto) 6 % (0-12); Neutrophils # (Auto) 5.2 Thou/mm3 (1.8-7.7); Neutrophils % (Auto) 66 % (37-80); Nucleated Red Blood Cell # 0.00 Thou/mm3 (0.00-0.00); Nucleated Red Blood Cell % 0 /100 WBC (0); Platelet Count 261 Thou/mm3 (140-440); RDW Standard Deviation 35.4 fL (35.1-43.9); Red Blood Count 5.17 Miln/mm3 (4.50-5.90); White Blood Count 7.9 Thou/mm3 (3.8-10.6)
[2024-12-05 05:32] LABS: Albumin, Serum 3.9 gm/dL (3.5-5.0); Anion Gap 16 (7-16); BUN/Creatinine Ratio 11 Ratio (12-20); Blood Urea Nitrogen 10 mg/dL (9-23); Calcium 8.9 mg/dL (8.3-10.6); Calcium (Corrected) 9.0 mg/dL (8.5-10.1); Chloride 103 mMol/L (98-107); Creatinine (Component) 0.9 mg/dL (0.6-1.3); Estimated Creatinine Clearance 111.3 mL/min (>60); Glucose 215 mg/dL (74-106); Magnesium 1.5 mg/dL (1.6-2.6); Osmolality,Calculated 273 (275-295); Phosphorous 2.8 mg/dL (2.4-5.1); Potassium 4.6 mMol/L (3.4-5.1); Sodium 134 mMol/L (136-145); eGFR > 60 See Note
[2024-12-05 05:36] LABS: Carbon Dioxide 14.7 mMol/L (20.0-31.0)
[2024-12-05] MEDS: HEPARIN SOD INJ 5000 UNIT/ML VIAL SC ×2 (06:27→21:04)
--- NOTE | 2024-12-05 07:58 | PC.NURSE ---
Patient lethargic but able to transfer from [facility] to bed on his own. BS 158. responds to name, able to answer yes no questions. Pt irritated and hostile, pt educated on POC and frequent and close monitoring-- pt states leave me alone go away. -- education provided on hypoglycemia s/s and OJ left at bedside. call light within pts reach.
--- NOTE | 2024-12-05 08:31 | PC.NURSE ---
DR. EUBANKS MADE AWARE OF PTS NON COMPLIANCE AND PT ALSO HAS ONE IV. LAB WILL DRAW A BMP NOW AND RENAL AND MAG IN TWO HOURS. ORDER RECEIVED, READ BACK AND CARRIED OUT. COORDINATED CARE WITH LAB.
--- NOTE | 2024-12-05 08:55 | PC.NURSE ---
DR. EUBANKS AT BEDSIDE ROUNDING ON PATIENT. REUBEN CORREA AT BEDSIDE TRYING TO GET ANOTHER IV.
[2024-12-05] MEDS: RINGERS LACTATED 1000 ML 2,000 ML 200 ML IV (09:05)
[2024-12-05 09:22] LABS: Anion Gap 12 (7-16); BUN/Creatinine Ratio 10 Ratio (12-20); Blood Urea Nitrogen 10 mg/dL (9-23); Calcium 8.9 mg/dL (8.3-10.6); Carbon Dioxide 22.5 mMol/L (20.0-31.0); Chloride 103 mMol/L (98-107); Creatinine (Component) 1.0 mg/dL (0.6-1.3); Estimated Creatinine Clearance 100.2 mL/min (>60); Glucose 147 mg/dL (74-106); Osmolality,Calculated 275 (275-295); Potassium 4.2 mMol/L (3.4-5.1); Sodium 137 mMol/L (136-145); eGFR > 60 See Note
[2024-12-05] MEDS: Magnesium Sulfate 2 GM Ivpb 2 GM/50 ML BAG IV (09:41)
--- NOTE | 2024-12-05 10:36 | PC.NURSE ---
LAKEISHA FROM LAB REPORTS PT REFUSED LAB DRAW, DR. EUBANKS MADE AWARE. NO NEW ORDERS GIVEN.
--- NOTE | 2024-12-05 11:31 | PC.NURSE ---
PATIENT BS 78, RESPONDS TO LIGHT SHAKING AND WAS ABLE TO DRINK OJ. PT STATES WANTS TO SLEEP.
--- NOTE | 2024-12-05 11:33 | PC.NURSE ---
DR. SANDY MADE AWARE OF BS: 78, WILL CHANGE BS CHECKS TO AC AND NO COVERAGE WITH LISPRO. ORDER RECEIVED, READ BACK AND CARRIED OUT.
--- NOTE | 2024-12-05 12:10 | PD.RESPRO ---
Documentation for date of: 12/05/24 Subjective Subjective Interval history: Yony Burciaga is a 39 yo male with signficant PMHx of Type 1 diabetes mellitus and polysubstance abuse admitted for management of DKA. Today, he is somnolent and slow to following instructions; denies fever, chills, nausea, vomiting. Labs significant for decreasing bicarbonate 14.7, anion gap 16, glucose 215, VBG pH 7.3 and pCO2 38, urine glucose 4+, urine ketones 4+, positive urine tox for opiates, fentanyl, amphetamine. His vitals overnight have been hypertensive with normal RR. Importantly, patient was refusing to have labs drawn after several tries of blood draws and opted to leave AMA, however upon further counciling decided to stay for continued inpatient treatment. Exam Vital Signs Temp Pulse Resp BP Pulse Ox O2 Del Method 92.6 F L 68 15 121/83 99 Room Air 12/05/24 08:10 12/05/24 12:00 12/05/24 08:10 12/05/24 08:10 12/05/24 08:10 12/05/24 08:10 Narrative Exam General: Somnolent, uncooperative. Slow to following instructions. HEENT: Normocephalic, atraumatic. EOMI Cardiac: Regular rate and rhythm, normal S1/S2, no murmurs, rubs, or gallops. Lungs: Clear to auscultation bilaterally, no wheezes, rales, or rhonchi. Skin: Warm, dry, intact. No rashes, lesions, or ecchymoses. Neuro: Alert and oriented ?3. Cranial nerves II?XII grossly intact. Objective Labs 12/05/24 05:00 12/05/24 18:01 Labs: Laboratory Results - last 24 hr 12/04/24 12/04/24 12/04/24 18:17 19:16 20:10 WBC 6.6 9.4 D RBC 5.99 H 5.89 Hgb 16.9 H 16.8 H Hct 48.5 48.1 MCV 81 82 MCH 28.2 28.5 MCHC 34.8 34.9 RDW Std Deviation 35.8 36.1 Plt Count Not Performed. 298 D Neut % (Auto) 66 66 Lymph % (Auto) 29 27 [place] % (Auto) 4 5 Eos % (Auto) 1 1 Baso % (Auto) 1 1 Neut # (Auto) 4.4 6.2 Lymph # (Auto) 1.9 2.5 [place] # (Auto) 0.3 0.5 Eos # (Auto) 0.0 0.1 Baso # (Auto) 0.1 0.1 Immature Gran # (Auto) 0.02 H 0.03 H Absolute Nucleated RBC 0.00 0.00 Immature Gran % 0 0 Nucleated RBC % 0 0 VBG pH 7.30 L VBG pCO2 38 VBG pO2 27 VBG O2 Sat (Verna) 55 L VBG Base Excess -7 L Sodium 132 L Potassium 5.2 H Chloride 94 L Carbon Dioxide 19.1 L Anion Gap 19 H BUN 13 Creatinine 1.4 H Estim Creat Clear Calc 71.5 eGFR > 60 BUN/Creatinine Ratio 9 L Glucose 445 H* Calculated Osmolality 283 Calcium 10.2 Corrected Calcium 10.2 H Phosphorus Magnesium Total Bilirubin 1.0 AST 27 ALT 37 Alkaline Phosphatase 133 H Total Protein 7.7 Albumin 4.9 Globulin 2.8 Albumin/Globulin Ratio 1.8 Lipase 19 Beta-Hydroxybutyrate/Acetoacetate 6.4 H Ur Collection Type Clean Catch Urine Color Lt-Yellow Urine Clarity Clear Urine pH 5.5 Ur Specific [place] 1.036 H Urine Protein Negative Urine Glucose (UA) 4+ A Urine Ketones 4+ A Urine Blood Negative Urine Nitrite Negative Urine Bilirubin Negative Urine Urobilinogen (Auto) Negative Ur Leukocyte Esterase Negative Urine RBC 0 Urine WBC 0 Ur Squamous Epith Cells 0 Urine Bacteria None Urine Opiates Screen Positive A Urine Fentanyl Screen Positive A Ur Barbiturates Screen Negative U Amphetamin/Meth Scrn Positive A U Benzodiazepines Scrn Negative U Cocaine Metab Screen Negative U Marijuana (THC) Screen Negative Misc Test Result See comment 12/05/24 12/05/24 12/05/24 00:20 05:00 08:45 WBC 7.9 RBC 5.17 Hgb 14.5 D Hct 41.8 MCV 81 MCH 28.0 MCHC 34.7 RDW Std Deviation 35.4 Plt Count 261 D Neut % (Auto) 66 Lymph % (Auto) 26 [place] % (Auto) 6 Eos % (Auto) 1 Baso % (Auto) 1 Neut # (Auto) 5.2 Lymph # (Auto) 2.1 [place] # (Auto) 0.5 Eos # (Auto) 0.1 Baso # (Auto) 0.1 Immature Gran # (Auto) 0.01 H Absolute Nucleated RBC 0.00 Immature Gran % 0 Nucleated RBC % 0 VBG pH VBG pCO2 VBG pO2 VBG O2 Sat (Verna) VBG Base Excess Sodium 135 L 134 L 137 Potassium 3.7 D 4.6 D 4.2 Chloride 100 103 103 Carbon Dioxide 20.6 14.7 L* 22.5 Anion Gap 14 16 12 BUN 10 10 10 Creatinine 1.1 0.9 1.0 Estim Creat Clear Calc 91.1 111.3 100.2 eGFR > 60 > 60 > 60 BUN/Creatinine Ratio 9 L 11 L 10 L Glucose 194 H D 215 H 147 H D Calculated Osmolality 274 L 273 L 275 Calcium 9.7 8.9 8.9 Corrected Calcium 9.7 9.0 Phosphorus 2.8 2.8 Magnesium 2.0 1.5 L Total Bilirubin AST ALT Alkaline Phosphatase Total Protein Albumin 4.5 3.9 D Globulin Albumin/Globulin Ratio Lipase Beta-Hydroxybutyrate/Acetoacetate Ur Collection Type Urine Color Urine Clarity Urine pH Ur Specific [place] Urine Protein Urine Glucose (UA) Urine Ketones Urine Blood Urine Nitrite Urine Bilirubin Urine Urobilinogen (Auto) Ur Leukocyte Esterase Urine RBC Urine WBC Ur Squamous Epith Cells Urine Bacteria Urine Opiates Screen Urine Fentanyl Screen Ur Barbiturates Screen U Amphetamin/Meth Scrn U Benzodiazepines Scrn U Cocaine Metab Screen U Marijuana (THC) Screen Misc Test Result ABG Interpretation ABG results: 12/04/24 18:17 VBG pH 7.30 L VBG pCO2 38 VBG pO2 27 VBG Base Excess -7 L Quality Measures Quality Measures none Assessment & Plan Assessment Current Active Medications: Generic Name Dose Route Start Last Admin Trade Name Freq PRN Reason Stop Dose Admin Acetaminophen 650 mg 12/05/24 11:34 Acetaminophen 325 Mg Tablet PO 01/03/25 21:49 Q4HR PRN Pain 1-3 and/or Fever >100.1 Al Hydrox/Mg Hydrox/Simethicone 30 ml 12/04/24 21:50 Mg Hyd/Al Hyd/Erick (Maalox Reg) Susp 30 Ml Udc PO 01/03/25 21:49 Q4HR PRN Heartburn or Upset Stomach Dextrose 25 ml 12/05/24 11:31 Dextrose 50%-Water Inj 50 Ml Syringe IV 01/04/25 11:30 Q15MIN PRN BG 50-70 responsive npo pt Dextrose 50 ml 12/05/24 11:31 Dextrose 50%-Water Inj 50 Ml Syringe IV 01/04/25 11:30 Q15MIN PRN BG <50 OR BG <70 & pt unresponsive Glucagon 1 mg 12/05/24 11:31 Glucagon Inj 1 Mg Vial IM Q15MIN PRN BG <70, and no IV access Heparin Sodium (Porcine) 5,000 unit 12/04/24 22:00 12/05/24 06:27 Heparin Sod Inj 5000 Unit/Ml Vial SC 12/18/24 21:59 5,000 unit Q8HR LATONYA Administration Magnesium Sulfate 2 gm in 50 mls @ 25 mls/hr 12/04/24 21:50 Magnesium Sulfate Ivpb IV 01/03/25 21:49 .Q2H PRN PER DKA PROTOCOL Lactated Ringer's 2,000 mls @ 200 mls/hr 12/05/24 08:13 12/05/24 09:05 Lactated Ringers IV 01/04/25 08:11 200 mls/hr .Q10H LATONYA Administration Insulin Degludec 80 unit 12/05/24 21:00 Insulin Degludec 5 Unit/0.05 Ml (Per 5 Units) SC 01/04/25 20:59 QPM LATONYA Insulin Human Lispro 0 unit 12/05/24 17:00 Insulin Lispro (Admelog) 1 Unit/0.01 Ml Unit SC 01/04/25 16:59 AC LATONYA Protocol Magnesium Hydroxide 30 ml 12/04/24 21:50 Milk Of Magnesia Susp 30 Ml Udc PO 01/03/25 21:49 QDAY PRN CONSTIPATION Plan 39 yo male with signficant PMHx of Type 1 diabetes mellitus, polysubstance abuse, recurrent episodes of DKA admitted for management of DKA. #Diabetic ketoacidosis #Type 1 Diabetes #Metabolic Acidosis #Electrolyte Abnormalities Patient was noncompliant with insulin regimen for the last week likely triggering acute hyperglycemia and subsequent DKA. Patient was initially started on 2L LR for IV fluids and potassium was repleted. Patient was uncooperative with IV access hence insulin gtt was not properly continued. Instead, patient was started on Insulin Degludec 80 units (home dose 90 units) and renal panel was trended. Findings showed improved labs of bicarb 14.7 -> 22.5, glucose 215 -> 147, AG 16 -> 12. IV fluids were changed to D5LR to prevent hypoglycemia while continuing to clear ketones. Importantly, patient was refusing to have labs drawn after several tries of blood draws and opted to leave A, however upon further counciling decided to stay for continued inpatient treatment. Patient's current diabetic regimen is 90 units degludec an 20 units lispro. Plan : - Renal panel for second reading of Anion Gap - Begin subcutaneous insulin if: AG < 12, Bicarb > 15, Glucose <200 and patient tolerating diet - Start on diabetic diet #Polysubstance use Urine tox screen was found to be positive for methamphetamine, fentanyl and opiates. Per chart review patient's urine tox has been positive for substances in the past. Plan: - director construction services referral, will advise patient to refrain from drug use Hospital Maintenance: Dispo: ICU for DKA management DVT ppx: Heparin GI ppx: None Diet: Diabetic IV Lines: Peripheral IVs Code Status: Full Code Patient seen and assessed under supervision of attending physician Dr. Stephens. Nikko Walls [facility], Internal Medicine I have personally seen and examined the patient. I agree with the medical student's assessment and plan as documented. Romeo Hanson DO PGY-2 Internal Medicine - GME Attending Provider Attestation/Addendum I have discussed and was present for the essential components of the history, physical examination, diagnosis, and treatment plan with the resident. I agree with the patient's care as documented by the resident and amended herein by me. Carlos Stephens DO. Although this document has been carefully reviewed, there may still be some phonetic and other typographical errors. These errors are purely grammatical due to imperfections in the software program and should not be construed in any way to compromise the substance of the patient's medical care during this visit.
--- NOTE | 2024-12-05 12:22 | PC.NURSE ---
PATIENT ATE LUNCH AND THEN WENT BACK TO SLEEP. VITAL SIGNS WNL, ONGOING ASSESSMENT WITH NO CHANGES NOTED AT THIS TIME.
--- NOTE | 2024-12-05 13:56 | PC.NURSE ---
PATIENT REFUSED LAB DRAW, IV, AND VERBALIZE HE WANTS TO LEAVE AGAINST MEDICAL ADVICE. EDUCATION PROVIDED ON SERIOUS COMPLICATIONS IF HE LEAVES. PT REPORTS HE HAS INSULIN MEDICATION AT HOME AND WILL FOLLOW UP WITH [facility]. DR. REID MADE AWARE.
[2024-12-05 18:38] LABS: Albumin, Serum 3.8 gm/dL (3.5-5.0); Anion Gap 12 (7-16); BUN/Creatinine Ratio 8 Ratio (12-20); Blood Urea Nitrogen 7 mg/dL (9-23); Calcium 9.0 mg/dL (8.3-10.6); Calcium (Corrected) 9.2 mg/dL (8.5-10.1); Carbon Dioxide 24.5 mMol/L (20.0-31.0); Chloride 104 mMol/L (98-107); Creatinine (Component) 0.9 mg/dL (0.6-1.3); Estimated Creatinine Clearance 107.7 mL/min (>60); Glucose 151 mg/dL (74-106); Magnesium 1.9 mg/dL (1.6-2.6); Osmolality,Calculated 280 (275-295); Phosphorous 2.6 mg/dL (2.4-5.1); Potassium 3.6 mMol/L (3.4-5.1); Sodium 140 mMol/L (136-145); eGFR > 60 See Note
--- NOTE | 2024-12-05 21:08 | PC.NURSE ---
Pt blood sugar was 134, MD Low made aware and pt is scheduled to get Degludec 80 units tonight, I asked MD Low if they okay to give the insulin coverage and per it's okay to give the 80 units of Degludec tonight.
--- NOTE | 2024-12-05 22:24 | PC.NURSE ---
MD Low made aware that pt refusing lab drawn for mg, phosphorous and renal panel, per MD to try again in an hour, will let lab know.
--- NOTE | 2024-12-05 23:51 | PC.NURSE ---
MD Avila made aware that pt refused his blood drawn again, said to try again at 2AM.
[2024-12-06] VITALS: BP 143/87; PULSE 103; PULSE 85; RESP 21; TEMP 36.4; O2SAT 100
--- NOTE | 2024-12-06 02:54 | PC.NURSE ---
Pt refused blood drawn at 2AM, MD Avila made aware, will try again at 6AM.
[2024-12-06 04:00] VITALS: BP 107/81; PULSE 68; PULSE 79; RESP 21; TEMP 36.1; O2SAT 100
--- NOTE | 2024-12-06 05:43 | PC.NURSE ---
Did a random BS check, pt BS is 56, pt is awake and oriented no signs of hypoglycemia, given pudding and and eva crackers. Repeat BS after 15 mins went down to 44, pt is awake, given another vanilla pudding and orange juice with eva cracker. MD Avila made aware, no new order made at this time. Will recheck BS after 15 mins.
[2024-12-06] MEDS: HEPARIN SOD INJ 5000 UNIT/ML VIAL SC (05:55)
--- NOTE | 2024-12-06 07:21 | PC.NURSE ---
PATIENT TOOK OFF PAINT FORMULATOR, PT IS REFUSING PAINT FORMULATOR. DR. EUBANKS MADE AWARE. VITAL SIGNS WNL. ON GOING ASSESSMENT WITH NO CHANGES NO CHANGES OBSERVE AT THIS TIME.
[2024-12-06 07:42] VITALS: PULSE 101; RESP 20; RESP 99
[2024-12-06] MEDS: INSULIN LISPRO (AdmeLOG) 1 UNIT/0.01 ML UNIT SC ×2 (07:49→11:42)
[2024-12-06 07:57] VITALS: BP 128/80; PULSE 84; RESP 19; TEMP 36.4; O2SAT 100
--- NOTE | 2024-12-06 11:35 | PC.NURSE ---
UPON ENTERING ROOM PT HAS IV OUT AND STATES I TOOK IT OUT. EDUCATED PT IMPORTANCE OF IV WHILE HE IS ADMITTED. PT NODDED. DISCHARGE INSTRUCTIONS GIVEN PT VERBALIZE UNDERSTANDING. NO QUESTIONS.
[2024-12-06 12:00] VITALS: BP 99/66; PULSE 78; RESP 18; TEMP 36.1; O2SAT 100
--- NOTE | 2024-12-06 13:22 | PD.RESDS ---
Planned Discharge Date 12/06/24 DS: Providers Provider Date of admission: 12/04/24 21:53 Primary care physician: Daphne Yousif PA-C Admitting Provider: Lisa Cates MD Attending Provider on Admission: Lisa Cates MD Consults: 12/04/24 21:51 Referral Registered Dietitian Routine Comment: Attending Provider on DC: Romeo Hanson MD Discharging Provider: Romeo Hanson MD DS: Diagnosis Problem List Completed Was Problem List Reviewed/Reconciled?: Yes Hospital Course Hospital Course Hospital course: 39-year-old male with past medical history of type 1 diabetes mellitus, polysubstance use disorder, recurrent episodes of DKA with last episode being roughly 1 month ago presented to the ED on 12/04 with weakness and somnolence. Patient apparently ran out of insulin and has not been using it for a week; moreover, patient's U tox was positive methamphetamine, opiate and fentanyl. In the ED there was difficulty obtaining IV access however 1 20-gauge peripheral IV was able to be inserted and initially insulin drip was started as the patient had anion gap metabolic acidosis secondary to diabetic ketoacidosis. Upon rechecking metabolic panel, patient's anion gap had closed and decision was made to admit the patient to the floors. Medical team continue to have difficulty with peripheral IV placement and initially there was concern about upgrading the patient to ICU for central line placement; however, patient's laboratory findings were reassuring for DKA being resolved. Patient was started on his near home dose of long-acting insulin and blood sugars were well-maintained along with electrolytes, pH and anion gap. Important to note that patient started refusing lab draws due to medical team having difficulty finding access for labs. Patient also asked nurses to leave AGAINST MEDICAL ADVICE; ever, upon counseling by physicians agreed to stay. Patient counseled about his medical condition and understand the importance of following up outpatient with an crew leader gluing, taking his insulin as prescribed and inquiring with endocrinology about insulin pump placement. Patient will be discharged with the following strict instructions. Please take insulin degludec as directed and wear FreeStyle Raghavendra 3 Plus Sensor/[place] Follow-up with your PCP within 1 week or follow-up at [facility] [address] [place] [address] Ask your PCP to refer you to an crew leader gluing (Dr. Arciniega) - you could benefit from an insulin pump placement If your symptoms worsen or if you develop new chest pain, shortness of breath, dizziness or loss of consiousness - please come back to the ED immediately. Hospital Diagnosis: #Acute encephalopathy secondary to metabolic derangement #Diabetic ketoacidosis #Type 1 Diabetes mellitus #Metabolic Acidosis #Electrolyte Abnormalities #Polysubstance use disorder #Fentanyl use disorder #Opiate use disorder #Meth use disorder Romeo Hanson DO PGY-2 Internal Medicine - [facility] Status at Discharge Overall status at discharge: patient is progressing back to baseline Time Spent with Patient Time attestation: Total time spent providing and/or coordinating discharge services: 45 minutes Time spent: Greater than 30 minutes Exam Vital Signs Temp Pulse Resp BP Pulse Ox O2 Del Method 97.0 F 78 18 99/66 100 Room Air 12/06/24 12:00 12/06/24 12:00 12/06/24 12:00 12/06/24 12:00 12/06/24 12:00 12/06/24 12:00 Narrative Exam General: Awake, answers questions appropriately. Slow to following instructions. HEENT: Normocephalic, atraumatic. EOMI Cardiac: Regular rate and rhythm, normal S1/S2, no murmurs, rubs, or gallops. Lungs: Clear to auscultation bilaterally, no wheezes, rales, or rhonchi. Abdominal: Nontender, nondistended borborygmi apparent Skin: Warm, dry, intact. No rashes, lesions, or ecchymoses. Neuro: Alert and oriented ?3. Cranial nerves II?XII grossly intact. Discharge Plan Plan Patient Disposition: HOME (Self Care) Patient condition on transfer: Stable Care Plan Goals: Please take insulin degludec as directed and wear FreeStyle Raghavendra 3 Plus Sensor/[place] Follow-up with your PCP within 1 week or follow-up at [facility] [address] [place] [address] Ask your PCP to refer you to an crew leader gluing (Dr. Arciniega) - you could benefit from an insulin pump placement If your symptoms worsen or if you develop new chest pain, shortness of breath, dizziness or loss of consiousness - please come back to the ED immediately. Prescriptions/Referrals Prescriptions/Med Rec: New (DME) blood-glucose meter Kit See Rx Instructions .Route Qty: 1 0RF Rx Instructions: As directed (DME) Blood Glucose Test Strip See Rx Instructions .Route Qty: 50 2RF Rx Instructions: Prepare the test strip: Remove the test strip from the foil pouch. Insert the strip into the meter according to the steep tender's instructions. Gather a blood sample: If using a lancing device, follow the instructions to prick your finger. If not using a lancing device, gently squeeze your finger to produce a small drop of blood. Apply the blood to the test strip: Touch the end of the test strip to the blood drop. Allow the blood to be absorbed into the strip. Wait for results: Follow the meter's instructions for how long to wait for the results. The meter will display your blood glucose level. (DME) Acti-Geovany Lancets 17 gauge misc See Rx Instructions .Route Qty: 100 0RF Rx Instructions: To use a blood glucose lancet, first, wash and dry your hands, then prepare the lancing device by twisting off the safety cap and inserting a new, sterile lancet. Place the lancing device firmly on the side of your finger and press the button to prick the skin. Gently massage the finger to form a blood drop and apply it to the blood glucose meter's test strip (DME) FreeStyle Raghavendra 3 Plus Sensor Device See Rx Instructions .Route Qty: 2 0RF Rx Instructions: As directed ([facility]) FreeStyle Raghavendra 3 [place] Misc See Rx Instructions .Route Qty: 1 0RF Rx Instructions: As directed Continued insulin degludec [Tresiba FlexTouch U-100] 100 unit/mL (3 mL) Insulin Pen 90 unit subcut QAM Rx Instructions: AFTER BREAKFAST Discontinued insulin lispro [Admelog SoloStar U-100 Insulin] 100 unit/mL insulin pen 20 unit SUBCUT TID Patient Comments: INJECT 20 UNITS SUBCUTANEOUSLY 3 TIMES A DAY 15MIN BEFORE EACH MEAL DIRECTED BY ([facility]) FreeStyle Raghavendra 14 Day [place] Misc Patient Comments: CHECK BLOOD SUGAR 4 TIMES A DAY Rx Instructions: CHECK BLOOD SUGAR FOUR TIMES A DAY Referrals: Daphne Yousif PA-C [Primary Care Provider] Meredith Arciniega MD [Physician, Endocrinology] Patient/Caregiver Discharge Instructions Education Materials: CGM, Diabetes: Meal Planning, Diabetes: Ways to Take Medicine Print Language: Amharic Stand Alone Forms: Jeanne Award Info., Patient Portal Info Letter Discharge Order Discharge Orders: Discharge (Routine); Ordered 12/06/24 Ordered By: Romeo Hanson Quality Discharge Quality Measures VTE prophylaxis MD Attestestation MD Attestation I have discussed and was present for the essential components of the discharge history, physical examination, diagnosis, and discharge treatment plan with the resident. I agree with the patient's discharge care as documented by the resident and amended herein by me. Carlos Stephens, . The patient understood all discharge instructions, all questions were answered satisfactorily. The patient was instructed to return to the Emergency Department is symptoms worsened or persisted. Patient was stable, afebrile, tolerating p.o. intake and ambulatory at time of discharge. It is recommended the patient follows up with outpatient endocrinology for possible insulin pump which he understood. Patient did come in with DKA however acidosis improved, patient back to baseline tolerating p.o. intake without issue. Patient was stable, afebrile, tolerating p.o. intake and ambulatory at time of discharge home. Of note, we did strongly counseled the patient on the necessity of quitting all illicit substances in which she understood. Although this document has been carefully reviewed, there may still be some phonetic and other typographical errors. These errors are purely grammatical due to imperfections in the software program and should not be construed in any way to compromise the substance of the patient's medical care during this visit.
== END 2024-12-06 11:45 | disposition home or self-care (01) | DRG 420 ==
LOC: SERX 21:12 → SERHOLD 22:02 → S3NX 12-05 07:58
PROVIDERS: Nurse Practitioner Family; Physician Assistant; Admitting Provider Student in an Organized Health Care Education/Training Program; Emergency Provider Emergency Medicine; PCP Physician Assistant; Visit Provider Student in an Organized Health Care Education/Training Program
DX: E10.10 Type 1 diabetes mellitus with ketoacidosis without coma (principal); F15.20 Other stimulant dependence, uncomplicated; F11.20 Opioid dependence, uncomplicated; N17.9 Acute kidney failure, unspecified; E87.1 Hypo-osmolality and hyponatremia; E86.1 Hypovolemia; E87.8 Other disorders of electrolyte and fluid balance, not elsewhere classified; E87.5 Hyperkalemia; F17.200 Nicotine dependence, unspecified, uncomplicated; G93.41 Metabolic encephalopathy; T38.3X6A Underdosing of insulin and oral hypoglycemic [antidiabetic] drugs, initial encounter; Z53.20 Procedure and treatment not carried out because of patient's decision for unspecified reasons; Z91.148 Patient's other noncompliance with medication regimen for other reason
CPT/HCPCS: 36415; 71045; 80048; 80053; 80069; 80307; 81001; 82010; 82803; 83690; 83735; 85025; 87081; 87086; 93005; 93225; 99285; J1644; J1815; J3475; J7120; A9270